=== PATIENT | female | born 1985 | race Caucasian/White ===

== ENCOUNTER 2021-04-06 18:18 | Inpatient (IN) | payer MEDICAID, SELFPAY ==
[~2021-04-06] VITALS: Ht 167.6 cm; Wt 117.5 kg
[2021-04-06 18:18] VITALS: BP_SYST 118
[~2021-04-06 18:18] MED LIST: CEFAZOLIN 1 GM IVPB PREMIX 50 ML IV ONE; MIDAZOLAM HCL 5 MG/5 ML VIAL IVP ONE; MORPHINE 2 MG/ML INJ. SYRINGE IVP ONE; PROPOFOL 200MG/ 20ML VIAL (DIPRIVAN) IV ONE; ROCURONIUM BROMIDE 10 MG/ML (ZEMURON) IV ONE; SEVOFLURANE 15 MIN GAS INH ONE
[2021-04-06] MEDS ORDERED: DEXAMETHASONE SOD PHOSPHATE 4 MG/ML VIAL IVP ONE (20:15)
[2021-04-06 21:08] LABS: BASOPHILS # (AUTO) 0.1 K/uL (0.0-0.2); BASOPHILS % (AUTO) 0.6 % (0.0-2.0); HEMOGLOBIN 12.4 g/dL (12.0-16.0); LYMPHOCYTES # (AUTO) 0.8 K/uL (1.0-5.5); LYMPHOCYTES % (AUTO) 8.6 % (20.5-51.5); MEAN CORPUSCULAR HEMOGLOBIN 31 pg (27-31); MEAN CORPUSCULAR HGB CONC 35 % (32-36); MEAN CORPUSCULAR VOLUME 89 fL (79.0-98.0); MONOCYTES # (AUTO) 0.6 K/uL (0.0-1.0); MONOCYTES % (AUTO) 6.6 % (1.7-9.3); NEUTROPHILS # (AUTO) 7.6 K/uL (1.8-7.7); NEUTROPHILS % (AUTO) 84.2 % (40.0-70.0); PLATELET COUNT (AUTO) 391 K/uL (130-430); RED BLOOD CELL COUNT(AUTO) 4.06 MIL/uL (4.2-6.2); RED CELL DISTRIBUTION WIDTH 14.1 % (9.0-15.0)
[2021-04-06 21:29] LABS: CALCIUM 8.6 mg/dL (8.4-11.0); CREATININE 1.09 mg/dL (0.55-1.30); POTASSIUM 3.7 mmol/L (3.5-5.1)
[2021-04-06 21:39] LABS: ALBUMIN 2.8 g/dL (3.4-4.8); TOTAL BILIRUBIN 0.4 mg/dL (0.0-1.0)
[2021-04-06 22:09] LABS: C-REACTIVE PROTEIN QUANT 24.3 mg/dL (0-0.5)
[2021-04-06 23:00] VITALS: BP_SYST 125
[2021-04-06] MEDS ORDERED: LORazepam 2 MG/ML VIAL IVP PRN (23:30)
[2021-04-06] MEDS ORDERED: HYDROcodone/ACETAMIN 10-325 MG TAB PO PRN (23:30)
[2021-04-06] MEDS ORDERED: HYDROcodone/ACETAMIN 5-325 MG TAB (NORCO/ VICODIN) PO PRN (23:30)
[2021-04-06] MEDS ORDERED: NALOXONE HCL 0.4 MG/ML AMP (NARCAN) IVP PRN ×2 (23:30)
[2021-04-07] VITALS (25 sets, daily range): BP systolic 116–163
[2021-04-07] MEDS ORDERED: LEVOFLOXACIN IN DEXTROSE 5 % 100 ML IV ONE (01:15)
[2021-04-07] MEDS ORDERED: ALBUTEROL SULFATE 0.083% 2.5 MG/3 ML VIAL.NEB INH SCH ×2 (03:00→07:00)
[2021-04-07] MEDS ORDERED: IPRATROPIUM BROM 0.5 MG/2.5 ML VIAL.NEB (ATROVENT) INH SCH (03:00)
[2021-04-07] MEDS: NORMAL SALINE 5 ML DISP.SYRIN IVF SCH ×3 (06:19→22:24)
[2021-04-07] MEDS: IPRATROPIUM BROM 0.5 MG/2.5 ML VIAL.NEB (ATROVENT) INH SCH ×3 (07:00→15:00)
[2021-04-07] MEDS ORDERED: ALBUTEROL MDI INHALATION 8 GM INH INH SCH (07:00)
[2021-04-07 07:21] LABS: BASOPHILS % (AUTO) 0.2 % (0.0-2.0); HEMATOCRIT 34.9 % (36-48); HEMOGLOBIN 12.1 g/dL (12.0-16.0); LYMPHOCYTES % (AUTO) 10.9 % (20.5-51.5); MEAN CORPUSCULAR HEMOGLOBIN 31 pg (27-31); MEAN CORPUSCULAR HGB CONC 35 % (32-36); MEAN CORPUSCULAR VOLUME 89 fL (79.0-98.0); MONOCYTES # (AUTO) 0.6 K/uL (0.0-1.0); MONOCYTES % (AUTO) 6.5 % (1.7-9.3); NEUTROPHILS # (AUTO) 7.8 K/uL (1.8-7.7); NEUTROPHILS % (AUTO) 82.4 % (40.0-70.0); PLATELET COUNT (AUTO) 374 K/uL (130-430); RED BLOOD CELL COUNT(AUTO) 3.91 MIL/uL (4.2-6.2); WHITE BLOOD COUNT (AUTO) 9.5 K/uL (4.8-10.8)
[2021-04-07 07:22] LABS: ALBUMIN 2.5 g/dL (3.4-4.8); CALCIUM 8.2 mg/dL (8.4-11.0); CREATININE 0.83 mg/dL (0.55-1.30); POTASSIUM 4.2 mmol/L (3.5-5.1); TOTAL BILIRUBIN 0.4 mg/dL (0.0-1.0)
[2021-04-07] MEDS ORDERED: ENOXAPARIN SODIUM 40 MG/0.4 ML SYRINGE SUBCUT ONE (07:30)
[2021-04-07] MEDS ORDERED: ALBUTEROL MDI INHALATION 8 GM INH INH PRN (07:30)
[2021-04-07] MEDS: AZITHROMYCIN 500 MG in NS 250 ML IV SCH (08:06)
[2021-04-07] MEDS: DEXAMETHASONE SOD PHOSPHATE 10 MG/ML VIAL IVP SCH (08:07)
[2021-04-07 08:35] LABS: ALBUMIN 2.5 g/dL (3.4-4.8); BILIRUBIN,DIRECT 0.1 mg/dL (0.0-0.3); TOTAL BILIRUBIN 0.4 mg/dL (0.0-1.0)
[2021-04-07] MEDS: ALBUTEROL MDI INHALATION 8 GM INH INH SCH ×5 (08:49→23:30)
[2021-04-07] MEDS ORDERED: CHOLECALCIFEROL (VITAMIN D3) 5,000 UNIT TABLET PO ONE (10:15)
[2021-04-07] MEDS ORDERED: ASCORBIC ACID 500 MG TABLET PO ONE (10:15)
[2021-04-07] MEDS: cefTRIAXone 1 GM IVPB PREMIX 50 ML IV SCH (10:16)
[2021-04-07 10:31] LABS: AMYLASE 35 U/L (0-100); LIPASE 64 U/L (73-393)
[2021-04-07] MEDS: LEVOFLOXACIN IN DEXTROSE 5 % 100 ML IV SCH ×2 (22:20)
[2021-04-08] VITALS (25 sets, daily range): BP systolic 110–165
[2021-04-08] MEDS: ALBUTEROL MDI INHALATION 8 GM INH INH SCH ×6 (03:25→23:59)
[2021-04-08] MEDS: NORMAL SALINE 5 ML DISP.SYRIN IVF SCH ×3 (06:00→23:28)
[2021-04-08 06:54] LABS: BASOPHILS % (AUTO) 0.1 % (0.0-2.0); HEMATOCRIT 35.6 % (36-48); LYMPHOCYTES # (AUTO) 0.7 K/uL (1.0-5.5); LYMPHOCYTES % (AUTO) 6.1 % (20.5-51.5); MEAN CORPUSCULAR HEMOGLOBIN 30 pg (27-31); MEAN CORPUSCULAR HGB CONC 34 % (32-36); MEAN CORPUSCULAR VOLUME 90 fL (79.0-98.0); MONOCYTES # (AUTO) 0.7 K/uL (0.0-1.0); MONOCYTES % (AUTO) 5.6 % (1.7-9.3); NEUTROPHILS # (AUTO) 10.7 K/uL (1.8-7.7); NEUTROPHILS % (AUTO) 88.2 % (40.0-70.0); PLATELET COUNT (AUTO) 384 K/uL (130-430); RED BLOOD CELL COUNT(AUTO) 3.96 MIL/uL (4.2-6.2)
[2021-04-08] MEDS: IPRATROPIUM BROM 0.5 MG/2.5 ML VIAL.NEB (ATROVENT) INH SCH (07:00)
[2021-04-08 07:01] LABS: PROTHROMBIN TIME 10.3 SECS (9.5-12.5)
[2021-04-08 07:14] LABS: ALBUMIN 2.6 g/dL (3.4-4.8); BILIRUBIN,DIRECT 0.2 mg/dL (0.0-0.3); CREATININE 0.79 mg/dL (0.55-1.30); POTASSIUM 3.9 mmol/L (3.5-5.1); TOTAL BILIRUBIN 0.6 mg/dL (0.0-1.0)
[2021-04-08 08:17] LABS: WHITE BLOOD COUNT (AUTO) 12.1 K/uL (4.8-10.8)
[2021-04-08 08:31] LABS: C-REACTIVE PROTEIN QUANT 15.4 mg/dL (0-0.5)
[2021-04-08] MEDS: D5/0.45 NS 1,000 ML IV SCH (08:33)
[2021-04-08] MEDS: AZITHROMYCIN 500 MG in NS 250 ML IV SCH (08:33)
[2021-04-08] MEDS: CHOLECALCIFEROL (VITAMIN D3) 5,000 UNIT TABLET PO SCH (08:35)
[2021-04-08] MEDS: ASCORBIC ACID 500 MG TABLET PO SCH (08:35)
[2021-04-08] MEDS: DEXAMETHASONE SOD PHOSPHATE 10 MG/ML VIAL IVP SCH (08:39)
[2021-04-08] MEDS: cefTRIAXone 1 GM IVPB PREMIX 50 ML IV SCH (08:41)
[2021-04-08] MEDS ORDERED: ENOXAPARIN SODIUM 40 MG/0.4 ML SYRINGE SUBCUT SCH ×2 (09:00)
[2021-04-08 10:11] LABS: ERYTHROCYTE SEDIMENTATION RATE 62 MM/HR (0-20)
[2021-04-08 11:29] LABS: INR 1.1 (0.8-1.2); PROTHROMBIN TIME 11.2 SECS (9.5-12.5)
[2021-04-08] MEDS ORDERED: TOCILIZUMAB 400 MG in NS 100 ML IV ONE (13:00)
[2021-04-08] MEDS: LEVOFLOXACIN IN DEXTROSE 5 % 100 ML IV SCH (21:00)
[2021-04-08] MEDS ORDERED: MORPHINE SULFATE IN 0.9 % NACL 100 ML IV ONE (21:35)
[2021-04-08] MEDS ORDERED: PROPOFOL DRIP 100 ML IV ONE (21:35)
[2021-04-09] VITALS (35 sets, daily range): BP systolic 100–123
[2021-04-09] MEDS ORDERED: PROPOFOL DRIP 100 ML IV ONE ×2 (00:15→02:47)
[2021-04-09] MEDS ORDERED: NOREPINEPHRINE BITARTRATE 4 MG in D5W 246 ML IV PRN (00:45)
[2021-04-09] MEDS: ALBUTEROL MDI INHALATION 8 GM INH INH SCH ×6 (04:00→23:12)
[2021-04-09] MEDS: D5/0.45 NS 1,000 ML IV SCH (07:00)
[2021-04-09] MEDS ORDERED: NALOXONE HCL 0.4 MG/ML AMP (NARCAN) IVP PRN (07:00)
[2021-04-09] MEDS: PROPOFOL DRIP 100 ML IV PRN ×5 (07:10→20:16)
[2021-04-09] MEDS: MORPHINE SULFATE IN 0.9 % NACL 100 ML IV PRN ×2 (07:13→14:56)
[2021-04-09] MEDS ORDERED: LevALBUTEROL HCL 1.25 MG/0.5 ML *CONC.* VIAL.NEB (XOPENEX CONC.) INH ONE (07:18)
[2021-04-09] MEDS: NORMAL SALINE 5 ML DISP.SYRIN IVF SCH ×3 (07:19→21:04)
[2021-04-09 07:34] LABS: ALBUMIN 2.4 g/dL (3.4-4.8); BILIRUBIN,DIRECT 0.1 mg/dL (0.0-0.3); CALCIUM 8.1 mg/dL (8.4-11.0); CREATININE 0.78 mg/dL (0.55-1.30); POTASSIUM 4.9 mmol/L (3.5-5.1); TOTAL BILIRUBIN 0.3 mg/dL (0.0-1.0)
[2021-04-09] MEDS: DEXAMETHASONE SOD PHOSPHATE 10 MG/ML VIAL IVP SCH (08:02)
[2021-04-09] MEDS: AZITHROMYCIN 500 MG in NS 250 ML IV SCH (08:03)
[2021-04-09 08:06] LABS: HEPATITIS A AB, IgM Negative (Negative); HEPATITIS B CORE AB, IgM Negative (Negative); HEPATITIS B SURFACE AG Negative (Negative)
[2021-04-09] MEDS ORDERED: ENOXAPARIN SODIUM 40 MG/0.4 ML SYRINGE SUBCUT SCH (09:00)
[2021-04-09 09:12] LABS: BASOPHILS % (AUTO) 0.1 % (0.0-2.0); EOSINOPHILS % (AUTO) 0.1 % (0.0-4.0); HEMATOCRIT 32.5 % (36-48); HEMOGLOBIN 10.9 g/dL (12.0-16.0); LYMPHOCYTES % (AUTO) 7.1 % (20.5-51.5); MEAN CORPUSCULAR HEMOGLOBIN 30 pg (27-31); MEAN CORPUSCULAR HGB CONC 34 % (32-36); MEAN CORPUSCULAR VOLUME 90 fL (79.0-98.0); MONOCYTES # (AUTO) 0.7 K/uL (0.0-1.0); MONOCYTES % (AUTO) 5.1 % (1.7-9.3); NEUTROPHILS # (AUTO) 11.8 K/uL (1.8-7.7); NEUTROPHILS % (AUTO) 87.6 % (40.0-70.0); PLATELET COUNT (AUTO) 217 K/uL (130-430); RED CELL DISTRIBUTION WIDTH 14.2 % (9.0-15.0); WHITE BLOOD COUNT (AUTO) 13.5 K/uL (4.8-10.8)
[2021-04-09] MEDS: cefTRIAXone 1 GM IVPB PREMIX 50 ML IV SCH (09:14)
[2021-04-09] MEDS: CHOLECALCIFEROL (VITAMIN D3) 5,000 UNIT TABLET PO SCH (09:14)
[2021-04-09] MEDS: ASCORBIC ACID 500 MG TABLET PO SCH (09:14)
[2021-04-09 10:04] LABS: ERYTHROCYTE SEDIMENTATION RATE 28 MM/HR (0-20)
[2021-04-09] MEDS ORDERED: ROCURONIUM BROMIDE 10 MG/ML (ZEMURON) IV ONE (10:29)
[2021-04-09] MEDS ORDERED: ETOMIDATE 20 MG/ 10 ML VIAL (AMIDATE) IVP ONE (10:29)
[2021-04-09] MEDS ORDERED: SUCCINYLCHOLINE CHLORIDE 20 MG/ML(QUELICIN) IVP ONE (10:29)
[2021-04-09 10:50] LABS: C-REACTIVE PROTEIN QUANT 18.5 mg/dL (0-0.5)
[2021-04-09] MEDS: LEVOFLOXACIN IN DEXTROSE 5 % 100 ML IV SCH (20:11)
[2021-04-09] MEDS: ENOXAPARIN SODIUM 100 MG/ML SYRINGE SUBCUT SCH (20:14)
[2021-04-10] VITALS (30 sets, daily range): BP systolic 99–157
[2021-04-10] MEDS: PROPOFOL DRIP 100 ML IV PRN ×4 (00:18→17:10)
[2021-04-10] MEDS: ALBUTEROL MDI INHALATION 8 GM INH INH SCH ×6 (03:32→23:11)
[2021-04-10] MEDS: NORMAL SALINE 5 ML DISP.SYRIN IVF SCH ×3 (06:10→21:30)
[2021-04-10] MEDS: D5/0.45 NS 1,000 ML IV SCH ×2 (06:40)
[2021-04-10] MEDS: ENOXAPARIN SODIUM 100 MG/ML SYRINGE SUBCUT SCH ×2 (09:20→21:30)
[2021-04-10] MEDS: DEXAMETHASONE SOD PHOSPHATE 10 MG/ML VIAL IVP SCH (09:21)
[2021-04-10] MEDS: cefTRIAXone 1 GM IVPB PREMIX 50 ML IV SCH (09:21)
[2021-04-10] MEDS: AZITHROMYCIN 500 MG in NS 250 ML IV SCH (09:21)
[2021-04-10] MEDS: ASCORBIC ACID 500 MG TABLET PO SCH (09:25)
[2021-04-10] MEDS: CHOLECALCIFEROL (VITAMIN D3) 5,000 UNIT TABLET PO SCH (09:25)
[2021-04-10 09:37] LABS: BASOPHILS % (AUTO) 0.2 % (0.0-2.0); MONOCYTES # (AUTO) 0.4 K/uL (0.0-1.0); MONOCYTES % (AUTO) 4.2 % (1.7-9.3)
[2021-04-10 09:48] LABS: EOSINOPHILS # (AUTO) 0.3 K/uL (0.0-0.4); EOSINOPHILS % (AUTO) 2.6 % (0.0-4.0); HEMATOCRIT 30.6 % (36-48); HEMOGLOBIN 10.6 g/dL (12.0-16.0); LYMPHOCYTES # (AUTO) 1.2 K/uL (1.0-5.5); LYMPHOCYTES % (AUTO) 11.9 % (20.5-51.5); MEAN CORPUSCULAR HEMOGLOBIN 31 pg (27-31); MEAN CORPUSCULAR HGB CONC 35 % (32-36); MEAN CORPUSCULAR VOLUME 89 fL (79.0-98.0); NEUTROPHILS % (AUTO) 81.1 % (40.0-70.0); PLATELET COUNT (AUTO) 177 K/uL (130-430); RED BLOOD CELL COUNT(AUTO) 3.42 MIL/uL (4.2-6.2); WHITE BLOOD COUNT (AUTO) 9.8 K/uL (4.8-10.8)
[2021-04-10 10:40] LABS: ALBUMIN 2.2 g/dL (3.4-4.8); C-REACTIVE PROTEIN QUANT 9.8 mg/dL (0-0.5); CALCIUM 7.7 mg/dL (8.4-11.0); CREATININE 0.76 mg/dL (0.55-1.30); POTASSIUM 4.1 mmol/L (3.5-5.1); TOTAL BILIRUBIN 0.3 mg/dL (0.0-1.0)
[2021-04-10 11:06] LABS: CERULOPLASMIN 29.2 mg/dL (19.0-39.0)
[2021-04-10 11:24] LABS: ERYTHROCYTE SEDIMENTATION RATE 6 MM/HR (0-20)
[2021-04-10 13:06] LABS: ANTI NUCLEAR AB WITH REFLEX Negative (Negative); ANTI-SMOOTH MUSCLE AB 7 Units (0-19)
[2021-04-10] MEDS ORDERED: TOCILIZUMAB 400 MG in NS 100 ML IV ONE (14:00)
[2021-04-10] MEDS: LEVOFLOXACIN IN DEXTROSE 5 % 100 ML IV SCH (21:30)
[2021-04-10] MEDS ORDERED: ATROPINE SULFATE 1 MG/10 ML SYRINGE IVP ONE (23:13)
[2021-04-11] VITALS (29 sets, daily range): BP systolic 116–138
[2021-04-11] MEDS: ALBUTEROL MDI INHALATION 8 GM INH INH SCH ×3 (03:43→16:59)
[2021-04-11 06:51] LABS: BASOPHILS # (AUTO) 0.2 K/uL (0.0-0.2); BASOPHILS % (AUTO) 1.4 % (0.0-2.0); EOSINOPHILS # (AUTO) 0.4 K/uL (0.0-0.4); EOSINOPHILS % (AUTO) 3.6 % (0.0-4.0); HEMATOCRIT 30.2 % (36-48); HEMOGLOBIN 10.7 g/dL (12.0-16.0); LYMPHOCYTES # (AUTO) 1.2 K/uL (1.0-5.5); LYMPHOCYTES % (AUTO) 10.6 % (20.5-51.5); MEAN CORPUSCULAR HEMOGLOBIN 32 pg (27-31); MEAN CORPUSCULAR HGB CONC 36 % (32-36); MEAN CORPUSCULAR VOLUME 90 fL (79.0-98.0); MONOCYTES # (AUTO) 0.4 K/uL (0.0-1.0); MONOCYTES % (AUTO) 3.8 % (1.7-9.3); NEUTROPHILS # (AUTO) 9.2 K/uL (1.8-7.7); PLATELET COUNT (AUTO) 340 K/uL (130-430); RED BLOOD CELL COUNT(AUTO) 3.36 MIL/uL (4.2-6.2); RED CELL DISTRIBUTION WIDTH 14.7 % (9.0-15.0); WHITE BLOOD COUNT (AUTO) 11.4 K/uL (4.8-10.8)
[2021-04-11 07:22] LABS: ALBUMIN 2.3 g/dL (3.4-4.8); CALCIUM 7.9 mg/dL (8.4-11.0); CREATININE 0.68 mg/dL (0.55-1.30); POTASSIUM 3.8 mmol/L (3.5-5.1); TOTAL BILIRUBIN 0.3 mg/dL (0.0-1.0)
[2021-04-11] MEDS: ATROPINE SULFATE 0.4 MG/ML VIAL IVP PRN ×2 (07:40→10:30)
[2021-04-11] MEDS: AZITHROMYCIN 500 MG in NS 250 ML IV SCH (08:34)
[2021-04-11] MEDS: NORMAL SALINE 5 ML DISP.SYRIN IVF SCH ×3 (08:34→21:27)
[2021-04-11] MEDS: DEXAMETHASONE SOD PHOSPHATE 10 MG/ML VIAL IVP SCH (08:34)
[2021-04-11] MEDS: cefTRIAXone 1 GM IVPB PREMIX 50 ML IV SCH (08:35)
[2021-04-11] MEDS: CHOLECALCIFEROL (VITAMIN D3) 5,000 UNIT TABLET PO SCH (08:35)
[2021-04-11] MEDS: ASCORBIC ACID 500 MG TABLET PO SCH (08:35)
[2021-04-11] MEDS: PANTOPRAZOLE SODIUM 40 MG/VIAL (PROTONIX) IVP SCH (08:35)
[2021-04-11] MEDS: ENOXAPARIN SODIUM 100 MG/ML SYRINGE SUBCUT SCH ×2 (08:36→21:24)
[2021-04-11] MEDS: MIDAZOLAM IN NACL,ISO-OSMOT/PF 100 ML IV PRN (08:39)
[2021-04-11 08:48] LABS: C-REACTIVE PROTEIN QUANT 4.3 mg/dL (0-0.5)
[2021-04-11 09:33] LABS: FERRITIN 1093 ng/mL (15-150)
[2021-04-11 09:45] LABS: ERYTHROCYTE SEDIMENTATION RATE 3 MM/HR (0-20)
[2021-04-11 10:03] LABS: NEUTROPHILS % (AUTO) 80.6 % (40.0-70.0)
[2021-04-11] MEDS: PROPOFOL DRIP 100 ML IV PRN ×3 (13:58→21:26)
[2021-04-11] MEDS: D5/0.45 NS 1,000 ML IV SCH (17:41)
[2021-04-12] VITALS (36 sets, daily range): BP systolic 102–120
[2021-04-12] MEDS: PROPOFOL DRIP 100 ML IV PRN ×6 (00:31→20:01)
[2021-04-12] MEDS: D5/0.45 NS 1,000 ML IV SCH (03:20)
[2021-04-12] MEDS: MIDAZOLAM IN NACL,ISO-OSMOT/PF 100 ML IV PRN (03:24)
[2021-04-12] MEDS: ALBUTEROL MDI INHALATION 8 GM INH INH SCH ×7 (04:03→23:49)
[2021-04-12] MEDS: NORMAL SALINE 5 ML DISP.SYRIN IVF SCH ×3 (05:54→21:42)
[2021-04-12 06:40] LABS: BASOPHILS # (AUTO) 0.1 K/uL (0.0-0.2); EOSINOPHILS # (AUTO) 0.4 K/uL (0.0-0.4); HEMATOCRIT 29.9 % (36-48); HEMOGLOBIN 10.7 g/dL (12.0-16.0); LYMPHOCYTES # (AUTO) 1.4 K/uL (1.0-5.5); LYMPHOCYTES % (AUTO) 12.1 % (20.5-51.5); MEAN CORPUSCULAR HEMOGLOBIN 32 pg (27-31); MEAN CORPUSCULAR HGB CONC 36 % (32-36); MEAN CORPUSCULAR VOLUME 91 fL (79.0-98.0); MONOCYTES # (AUTO) 0.2 K/uL (0.0-1.0); MONOCYTES % (AUTO) 2.1 % (1.7-9.3); NEUTROPHILS # (AUTO) 9.6 K/uL (1.8-7.7); NEUTROPHILS % (AUTO) 81.8 % (40.0-70.0); PLATELET COUNT (AUTO) 347 K/uL (130-430); RED CELL DISTRIBUTION WIDTH 14.6 % (9.0-15.0); WHITE BLOOD COUNT (AUTO) 11.8 K/uL (4.8-10.8)
[2021-04-12 07:41] LABS: ALBUMIN 2.2 g/dL (3.4-4.8); CALCIUM 7.7 mg/dL (8.4-11.0); CREATININE 0.53 mg/dL (0.55-1.30); POTASSIUM 4.3 mmol/L (3.5-5.1); TOTAL BILIRUBIN 0.4 mg/dL (0.0-1.0)
[2021-04-12 08:27] LABS: ERYTHROCYTE SEDIMENTATION RATE 3 MM/HR (0-20)
[2021-04-12] MEDS: CHOLECALCIFEROL (VITAMIN D3) 5,000 UNIT TABLET PO SCH (08:58)
[2021-04-12] MEDS: ASCORBIC ACID 500 MG TABLET PO SCH (08:58)
[2021-04-12] MEDS: PANTOPRAZOLE SODIUM 40 MG/VIAL (PROTONIX) IVP SCH (08:58)
[2021-04-12] MEDS: DEXAMETHASONE SOD PHOSPHATE 10 MG/ML VIAL IVP SCH (08:58)
[2021-04-12] MEDS: ENOXAPARIN SODIUM 100 MG/ML SYRINGE SUBCUT SCH ×2 (09:00→21:42)
[2021-04-12] MEDS: cefTRIAXone 1 GM IVPB PREMIX 50 ML IV SCH (09:03)
[2021-04-12 09:27] LABS: C-REACTIVE PROTEIN QUANT 2.1 mg/dL (0-0.5)
[2021-04-13] VITALS (36 sets, daily range): BP systolic 97–128
[2021-04-13] MEDS: PROPOFOL DRIP 100 ML IV PRN ×5 (00:30→22:00)
[2021-04-13] MEDS: NORMAL SALINE 5 ML DISP.SYRIN IVF SCH ×3 (06:16→21:05)
[2021-04-13] MEDS: D5/0.45 NS 1,000 ML IV SCH (06:17)
[2021-04-13] MEDS: MIDAZOLAM IN NACL,ISO-OSMOT/PF 100 ML IV PRN (06:23)
[2021-04-13 06:25] LABS: BASOPHILS # (AUTO) 0.2 K/uL (0.0-0.2); BASOPHILS % (AUTO) 1.5 % (0.0-2.0); EOSINOPHILS # (AUTO) 1.4 K/uL (0.0-0.4); HEMATOCRIT 34.1 % (36-48); HEMOGLOBIN 11.9 g/dL (12.0-16.0); LYMPHOCYTES # (AUTO) 2.1 K/uL (1.0-5.5); LYMPHOCYTES % (AUTO) 13.4 % (20.5-51.5); MEAN CORPUSCULAR HEMOGLOBIN 32 pg (27-31); MEAN CORPUSCULAR HGB CONC 35 % (32-36); MEAN CORPUSCULAR VOLUME 91 fL (79.0-98.0); MONOCYTES # (AUTO) 0.5 K/uL (0.0-1.0); MONOCYTES % (AUTO) 3.2 % (1.7-9.3); NEUTROPHILS # (AUTO) 11.3 K/uL (1.8-7.7); NEUTROPHILS % (AUTO) 72.9 % (40.0-70.0); PLATELET COUNT (AUTO) 343 K/uL (130-430); RED BLOOD CELL COUNT(AUTO) 3.76 MIL/uL (4.2-6.2); RED CELL DISTRIBUTION WIDTH 14.8 % (9.0-15.0); WHITE BLOOD COUNT (AUTO) 15.5 K/uL (4.8-10.8)
[2021-04-13 07:16] LABS: CALCIUM 7.7 mg/dL (8.4-11.0); CREATININE 0.59 mg/dL (0.55-1.30); POTASSIUM 3.7 mmol/L (3.5-5.1)
[2021-04-13] MEDS: ALBUTEROL MDI INHALATION 8 GM INH INH SCH ×5 (07:26→23:14)
[2021-04-13] MEDS: PANTOPRAZOLE SODIUM 40 MG/VIAL (PROTONIX) IVP SCH (08:32)
[2021-04-13] MEDS: CHOLECALCIFEROL (VITAMIN D3) 5,000 UNIT TABLET PO SCH (08:32)
[2021-04-13] MEDS: ASCORBIC ACID 500 MG TABLET PO SCH (08:32)
[2021-04-13] MEDS: DEXAMETHASONE SOD PHOSPHATE 10 MG/ML VIAL IVP SCH (08:33)
[2021-04-13] MEDS: ENOXAPARIN SODIUM 100 MG/ML SYRINGE SUBCUT SCH ×2 (08:33→20:19)
[2021-04-13] MEDS: cefTRIAXone 1 GM IVPB PREMIX 50 ML IV SCH (08:35)
[2021-04-13 08:50] LABS: C-REACTIVE PROTEIN QUANT 0.9 mg/dL (0-0.5)
[2021-04-13 09:42] LABS: ERYTHROCYTE SEDIMENTATION RATE 2 MM/HR (0-20)
[2021-04-13] MEDS: MORPHINE SULFATE IN 0.9 % NACL 100 ML IV PRN (11:00)
[2021-04-13] MEDS: MICAFUNGIN SODIUM 100 MG in NS 100 ML IV SCH (17:53)
[2021-04-13] MEDS: AZITHROMYCIN 500 MG in NS 250 ML IV SCH (20:03)
[2021-04-14] VITALS (34 sets, daily range): BP systolic 99–121
[2021-04-14] MEDS: ATROPINE SULFATE 0.4 MG/ML VIAL IVP PRN ×3 (01:20→18:43)
[2021-04-14] MEDS: ALBUTEROL MDI INHALATION 8 GM INH INH SCH ×5 (03:10→19:29)
[2021-04-14] MEDS: D5/0.45 NS 1,000 ML IV SCH (04:57)
[2021-04-14] MEDS: NORMAL SALINE 5 ML DISP.SYRIN IVF SCH ×3 (05:36→21:44)
[2021-04-14 07:18] LABS: ALBUMIN 2.2 g/dL (3.4-4.8); CALCIUM 7.6 mg/dL (8.4-11.0); CREATININE 0.6 mg/dL (0.55-1.30); POTASSIUM 3.8 mmol/L (3.5-5.1); TOTAL BILIRUBIN 0.4 mg/dL (0.0-1.0)
[2021-04-14 07:26] LABS: HEMATOCRIT 30.3 % (36-48); HEMOGLOBIN 10.5 g/dL (12.0-16.0); MEAN CORPUSCULAR HEMOGLOBIN 32 pg (27-31); MEAN CORPUSCULAR HGB CONC 35 % (32-36); MEAN CORPUSCULAR VOLUME 91 fL (79.0-98.0); PLATELET COUNT (AUTO) 363 K/uL (130-430); RED BLOOD CELL COUNT(AUTO) 3.33 MIL/uL (4.2-6.2); RED CELL DISTRIBUTION WIDTH 14.7 % (9.0-15.0); WHITE BLOOD COUNT (AUTO) 12.9 K/uL (4.8-10.8)
[2021-04-14] MEDS: PANTOPRAZOLE SODIUM 40 MG/VIAL (PROTONIX) IVP SCH (09:05)
[2021-04-14] MEDS: cefTRIAXone 1 GM IVPB PREMIX 50 ML IV SCH (09:05)
[2021-04-14] MEDS: CHOLECALCIFEROL (VITAMIN D3) 5,000 UNIT TABLET PO SCH (09:06)
[2021-04-14] MEDS: ASCORBIC ACID 500 MG TABLET PO SCH (09:06)
[2021-04-14] MEDS: DEXAMETHASONE SOD PHOSPHATE 10 MG/ML VIAL IVP SCH (09:06)
[2021-04-14] MEDS: ENOXAPARIN SODIUM 100 MG/ML SYRINGE SUBCUT SCH ×2 (09:12→21:43)
[2021-04-14 09:48] LABS: C-REACTIVE PROTEIN QUANT 0.3 mg/dL (0-0.5)
[2021-04-14 10:30] LABS: ERYTHROCYTE SEDIMENTATION RATE 5 MM/HR (0-20)
[2021-04-14] MEDS: PROPOFOL DRIP 100 ML IV PRN ×2 (11:04→18:43)
[2021-04-14 12:22] LABS: BAND % (MANUAL) 9 % (0-6); BASOPHILS % (MANUAL) 0 % (0-2); EOSINOPHILS % (MANUAL) 1 % (0-7); LYMPHOCYTES % (MANUAL) 7 % (20-46); MONOCYTES % (MANUAL) 4 % (0-11)
[2021-04-14 12:24] LABS: METAMYELOCYTES % 4 % (0-0)
[2021-04-14] MEDS: MIDAZOLAM IN NACL,ISO-OSMOT/PF 100 ML IV PRN (14:02)
[2021-04-14] MEDS: MICAFUNGIN SODIUM 100 MG in NS 100 ML IV SCH (17:28)
[2021-04-14] MEDS: MORPHINE SULFATE IN 0.9 % NACL 100 ML IV PRN (21:34)
[2021-04-14] MEDS: AZITHROMYCIN 500 MG in NS 250 ML IV SCH (21:40)
[2021-04-15] VITALS (35 sets, daily range): BP systolic 103–132
[2021-04-15] MEDS: D5/0.45 NS 1,000 ML IV SCH
[2021-04-15] MEDS: ALBUTEROL MDI INHALATION 8 GM INH INH SCH ×7 (03:28→23:17)
[2021-04-15] MEDS: NORMAL SALINE 5 ML DISP.SYRIN IVF SCH ×3 (06:25→22:53)
[2021-04-15 06:46] LABS: BASOPHILS # (AUTO) 0.1 K/uL (0.0-0.2); BASOPHILS % (AUTO) 0.5 % (0.0-2.0); EOSINOPHILS # (AUTO) 0.3 K/uL (0.0-0.4); EOSINOPHILS % (AUTO) 2.1 % (0.0-4.0); HEMATOCRIT 32.2 % (36-48); HEMOGLOBIN 10.8 g/dL (12.0-16.0); LYMPHOCYTES # (AUTO) 1.9 K/uL (1.0-5.5); LYMPHOCYTES % (AUTO) 13.9 % (20.5-51.5); MEAN CORPUSCULAR HEMOGLOBIN 30 pg (27-31); MEAN CORPUSCULAR HGB CONC 34 % (32-36); MEAN CORPUSCULAR VOLUME 90 fL (79.0-98.0); MONOCYTES # (AUTO) 0.7 K/uL (0.0-1.0); NEUTROPHILS # (AUTO) 10.5 K/uL (1.8-7.7); PLATELET COUNT (AUTO) 301 K/uL (130-430); RED BLOOD CELL COUNT(AUTO) 3.56 MIL/uL (4.2-6.2); RED CELL DISTRIBUTION WIDTH 14.9 % (9.0-15.0); WHITE BLOOD COUNT (AUTO) 13.4 K/uL (4.8-10.8)
[2021-04-15 06:58] LABS: ANION GAP 6 (5-15); CALCIUM 7.8 mg/dL (8.4-11.0); CHLORIDE 106 mmol/L (98-107); CREATININE 0.59 mg/dL (0.55-1.30); GLUCOSE 116 mg/dL (70-99); POTASSIUM 3.8 mmol/L (3.5-5.1); SODIUM SERUM 140 mmol/L (136-145); UREA NITROGEN, BLOOD 20 mg/dL (8-21)
[2021-04-15 07:27] LABS: GFR AFRICAN AMERICAN 148 mL/min (>90)
[2021-04-15 07:38] LABS: NEUTROPHILS % (AUTO) 78.5 % (40.0-70.0)
[2021-04-15 07:43] LABS: C-REACTIVE PROTEIN QUANT < 0.2 mg/dL (0-0.5)
[2021-04-15] MEDS: CHOLECALCIFEROL (VITAMIN D3) 5,000 UNIT TABLET PO SCH (09:10)
[2021-04-15] MEDS: ASCORBIC ACID 500 MG TABLET PO SCH (09:10)
[2021-04-15] MEDS: PANTOPRAZOLE SODIUM 40 MG/VIAL (PROTONIX) IVP SCH (09:11)
[2021-04-15] MEDS: DEXAMETHASONE SOD PHOSPHATE 10 MG/ML VIAL IVP SCH (09:13)
[2021-04-15] MEDS: cefTRIAXone 1 GM IVPB PREMIX 50 ML IV SCH (09:15)
[2021-04-15] MEDS: THEOPHYLLINE ANHYDROUS 200 MG CAP.ER.24H PO SCH (09:15)
[2021-04-15] MEDS: ENOXAPARIN SODIUM 100 MG/ML SYRINGE SUBCUT SCH ×2 (09:20→22:23)
[2021-04-15 10:13] LABS: ERYTHROCYTE SEDIMENTATION RATE 4 MM/HR (0-20)
[2021-04-15] MEDS: PROPOFOL DRIP 100 ML IV PRN ×3 (10:43→14:17)
[2021-04-15] MEDS: ATROPINE SULFATE 0.4 MG/ML VIAL IVP PRN (16:21)
[2021-04-15] MEDS: MICAFUNGIN SODIUM 100 MG in NS 100 ML IV SCH (17:56)
[2021-04-15] MEDS: AZITHROMYCIN 500 MG in NS 250 ML IV SCH (22:17)
[2021-04-15] MEDS: MORPHINE SULFATE IN 0.9 % NACL 100 ML IV PRN (22:19)
[2021-04-15] MEDS: MIDAZOLAM IN NACL,ISO-OSMOT/PF 100 ML IV PRN (22:22)
[2021-04-16] VITALS (33 sets, daily range): BP systolic 85–174
[2021-04-16] MEDS: ALBUTEROL MDI INHALATION 8 GM INH INH SCH ×6 (03:16→23:19)
[2021-04-16] MEDS: NORMAL SALINE 5 ML DISP.SYRIN IVF SCH ×3 (06:00→23:12)
[2021-04-16 06:34] LABS: BASOPHILS # (AUTO) 0.1 K/uL (0.0-0.2); BASOPHILS % (AUTO) 0.5 % (0.0-2.0); EOSINOPHILS # (AUTO) 0.3 K/uL (0.0-0.4); EOSINOPHILS % (AUTO) 2.2 % (0.0-4.0); HEMATOCRIT 33.8 % (36-48); HEMOGLOBIN 11.2 g/dL (12.0-16.0); LYMPHOCYTES # (AUTO) 2.2 K/uL (1.0-5.5); MEAN CORPUSCULAR HEMOGLOBIN 30 pg (27-31); MEAN CORPUSCULAR HGB CONC 33 % (32-36); MEAN CORPUSCULAR VOLUME 92 fL (79.0-98.0); MONOCYTES # (AUTO) 0.7 K/uL (0.0-1.0); MONOCYTES % (AUTO) 5.7 % (1.7-9.3); NEUTROPHILS # (AUTO) 8.8 K/uL (1.8-7.7); NEUTROPHILS % (AUTO) 73.6 % (40.0-70.0); PLATELET COUNT (AUTO) 346 K/uL (130-430); RED BLOOD CELL COUNT(AUTO) 3.68 MIL/uL (4.2-6.2); RED CELL DISTRIBUTION WIDTH 15.3 % (9.0-15.0)
[2021-04-16 06:43] LABS: CALCIUM 8.1 mg/dL (8.4-11.0); CREATININE 0.64 mg/dL (0.55-1.30); POTASSIUM 3.8 mmol/L (3.5-5.1)
[2021-04-16] MEDS: DEXAMETHASONE SOD PHOSPHATE 10 MG/ML VIAL IVP SCH (08:15)
[2021-04-16] MEDS: CHOLECALCIFEROL (VITAMIN D3) 5,000 UNIT TABLET PO SCH (08:16)
[2021-04-16] MEDS: ASCORBIC ACID 500 MG TABLET PO SCH (08:16)
[2021-04-16] MEDS: THEOPHYLLINE ANHYDROUS 200 MG CAP.ER.24H PO SCH (08:16)
[2021-04-16] MEDS: PANTOPRAZOLE SODIUM 40 MG/VIAL (PROTONIX) IVP SCH (08:17)
[2021-04-16] MEDS: cefTRIAXone 1 GM IVPB PREMIX 50 ML IV SCH (08:17)
[2021-04-16] MEDS: ENOXAPARIN SODIUM 100 MG/ML SYRINGE SUBCUT SCH ×2 (08:23→21:25)
[2021-04-16 10:24] LABS: FREE T4 (FREE THYROXINE) 1.6 ng/dl (0.8-1.5); THYROID STIMULATING HORMONE 7.25 uIu/mL (0.36-3.74)
[2021-04-16] MEDS: D5/0.45 NS 1,000 ML IV SCH ×2 (10:33→14:43)
[2021-04-16] MEDS: DOPamine PREMIX 250 ML IV PRN ×2 (11:16→20:19)
[2021-04-16] MEDS ORDERED: ERYTHROMYCIN LACTOBIONATE 500 MG in NS 50 ML IV SCH (12:00)
[2021-04-16] MEDS: PROPOFOL DRIP 100 ML IV PRN ×3 (13:44→23:16)
[2021-04-16] MEDS: MICAFUNGIN SODIUM 100 MG in NS 100 ML IV SCH (16:41)
[2021-04-16] MEDS: ERYTHROMYCIN BASE 500 MG TABLET NG SCH (17:13)
[2021-04-16] MEDS: AZITHROMYCIN 500 MG in NS 250 ML IV SCH (21:24)
[2021-04-17] VITALS (35 sets, daily range): BP systolic 96–159
[2021-04-17] MEDS: ERYTHROMYCIN BASE 500 MG TABLET NG SCH ×4 (00:07→17:55)
[2021-04-17] MEDS: ALBUTEROL MDI INHALATION 8 GM INH INH SCH ×5 (03:27→23:45)
[2021-04-17] MEDS: NORMAL SALINE 5 ML DISP.SYRIN IVF SCH ×3 (05:50→21:58)
[2021-04-17] MEDS: PROPOFOL DRIP 100 ML IV PRN ×4 (05:52→21:58)
[2021-04-17 06:18] LABS: BASOPHILS # (AUTO) 0.1 K/uL (0.0-0.2); BASOPHILS % (AUTO) 0.5 % (0.0-2.0); EOSINOPHILS # (AUTO) 0.3 K/uL (0.0-0.4); EOSINOPHILS % (AUTO) 1.9 % (0.0-4.0); HEMATOCRIT 37.3 % (36-48); HEMOGLOBIN 12.4 g/dL (12.0-16.0); LYMPHOCYTES # (AUTO) 2.2 K/uL (1.0-5.5); LYMPHOCYTES % (AUTO) 14.5 % (20.5-51.5); MEAN CORPUSCULAR HEMOGLOBIN 30 pg (27-31); MEAN CORPUSCULAR HGB CONC 33 % (32-36); MEAN CORPUSCULAR VOLUME 91 fL (79.0-98.0); MONOCYTES # (AUTO) 0.9 K/uL (0.0-1.0); NEUTROPHILS # (AUTO) 11.8 K/uL (1.8-7.7); PLATELET COUNT (AUTO) 386 K/uL (130-430); RED BLOOD CELL COUNT(AUTO) 4.09 MIL/uL (4.2-6.2); RED CELL DISTRIBUTION WIDTH 15.9 % (9.0-15.0); WHITE BLOOD COUNT (AUTO) 15.3 K/uL (4.8-10.8)
[2021-04-17 06:54] LABS: ALANINE AMINOTRANSFERASE 77 U/L (12-78); ALBUMIN 2.7 g/dL (3.4-4.8); ANION GAP 8 (5-15); ASPARTATE AMINOTRANSFERASE 48 U/L (10-37); CHLORIDE 108 mmol/L (98-107); CREATININE 0.63 mg/dL (0.55-1.30); GLUCOSE 181 mg/dL (70-99); PHOSPHORUS 3.8 mg/dL (2.7-4.5); POTASSIUM 3.8 mmol/L (3.5-5.1); SODIUM SERUM 143 mmol/L (136-145); TOTAL BILIRUBIN 0.4 mg/dL (0.0-1.0); UREA NITROGEN, BLOOD 12 mg/dL (8-21)
[2021-04-17 07:26] LABS: NEUTROPHILS % (AUTO) 77.1 % (40.0-70.0)
[2021-04-17 07:53] LABS: GFR AFRICAN AMERICAN 138 mL/min (>90)
[2021-04-17] MEDS: cefTRIAXone 1 GM IVPB PREMIX 50 ML IV SCH (08:01)
[2021-04-17] MEDS: ASCORBIC ACID 500 MG TABLET PO SCH (08:08)
[2021-04-17] MEDS: CHOLECALCIFEROL (VITAMIN D3) 5,000 UNIT TABLET PO SCH (08:08)
[2021-04-17] MEDS: PANTOPRAZOLE SODIUM 40 MG/VIAL (PROTONIX) IVP SCH (08:08)
[2021-04-17] MEDS: DEXAMETHASONE SOD PHOSPHATE 10 MG/ML VIAL IVP SCH (08:08)
[2021-04-17] MEDS: THEOPHYLLINE ANHYDROUS 200 MG CAP.ER.24H PO SCH (08:09)
[2021-04-17] MEDS: ENOXAPARIN SODIUM 100 MG/ML SYRINGE SUBCUT SCH ×2 (08:17→20:33)
[2021-04-17] MEDS ORDERED: NALOXONE HCL 0.4 MG/ML AMP (NARCAN) IVP PRN (08:30)
[2021-04-17 08:59] LABS: C-REACTIVE PROTEIN QUANT 0.5 mg/dL (0-0.5)
[2021-04-17 09:27] LABS: ERYTHROCYTE SEDIMENTATION RATE 9 MM/HR (0-20)
[2021-04-17] MEDS ORDERED: MORPHINE SULFATE IN 0.9 % NACL 100 ML IV ONE (10:00)
[2021-04-17] MEDS: MIDAZOLAM HCL IN 0.9 % NACL/PF 50 ML IV PRN (10:12)
[2021-04-17] MEDS: MORPHINE SULFATE IN 0.9 % NACL 100 ML IV PRN (10:13)
[2021-04-17 12:45] LABS: THEOPHYLLINE < 2.0 ug/mL (10.0-20.0)
[2021-04-17] MEDS ORDERED: ROCURONIUM BROMIDE 10 MG/ML (ZEMURON) IV PRN (13:45)
[2021-04-17] MEDS: DOPamine PREMIX 250 ML IV PRN (13:54)
[2021-04-17] MEDS: EPINEPHrine 5 MG in NS 245 ML IV PRN (15:31)
[2021-04-17] MEDS: ATROPINE SULFATE 0.4 MG/ML VIAL IVP PRN (15:33)
[2021-04-17] MEDS: MICAFUNGIN SODIUM 100 MG in NS 100 ML IV SCH (17:54)
[2021-04-17] MEDS: AZITHROMYCIN 500 MG in NS 250 ML IV SCH (20:32)
[2021-04-18] VITALS (35 sets, daily range): BP systolic 89–130
[2021-04-18] MEDS: ERYTHROMYCIN BASE 500 MG TABLET NG SCH ×5 (00:40→23:10)
[2021-04-18] MEDS: MIDAZOLAM HCL IN 0.9 % NACL/PF 50 ML IV PRN ×2 (03:10→15:09)
[2021-04-18] MEDS: PROPOFOL DRIP 100 ML IV PRN ×3 (03:14→11:02)
[2021-04-18] MEDS: ALBUTEROL MDI INHALATION 8 GM INH INH SCH ×6 (03:21→23:30)
[2021-04-18] MEDS: NORMAL SALINE 5 ML DISP.SYRIN IVF SCH ×3 (05:26→22:41)
[2021-04-18] MEDS: VECURONIUM BROMIDE 50 MG in NS 50 ML IV PRN (05:27)
[2021-04-18] MEDS ORDERED: MORPHINE SULFATE IN 0.9 % NACL 100 ML IV ONE ×2 (06:07→22:54)
[2021-04-18 06:28] LABS: BASOPHILS # (AUTO) 0.2 K/uL (0.0-0.2); BASOPHILS % (AUTO) 0.8 % (0.0-2.0); EOSINOPHILS # (AUTO) 0.4 K/uL (0.0-0.4); EOSINOPHILS % (AUTO) 1.6 % (0.0-4.0); HEMATOCRIT 32.9 % (36-48); HEMOGLOBIN 11.1 g/dL (12.0-16.0); LYMPHOCYTES # (AUTO) 1.7 K/uL (1.0-5.5); MEAN CORPUSCULAR HEMOGLOBIN 31 pg (27-31); MEAN CORPUSCULAR HGB CONC 34 % (32-36); MEAN CORPUSCULAR VOLUME 92 fL (79.0-98.0); MONOCYTES # (AUTO) 1.4 K/uL (0.0-1.0); MONOCYTES % (AUTO) 5.9 % (1.7-9.3); PLATELET COUNT (AUTO) 454 K/uL (130-430); RED BLOOD CELL COUNT(AUTO) 3.57 MIL/uL (4.2-6.2); RED CELL DISTRIBUTION WIDTH 15.9 % (9.0-15.0); WHITE BLOOD COUNT (AUTO) 23.6 K/uL (4.8-10.8)
[2021-04-18 06:34] LABS: CALCIUM 8.5 mg/dL (8.4-11.0); CREATININE 0.81 mg/dL (0.55-1.30); POTASSIUM 4.4 mmol/L (3.5-5.1)
[2021-04-18] MEDS: MORPHINE SULFATE IN 0.9 % NACL 100 ML IV PRN ×2 (06:47→23:02)
[2021-04-18] MEDS: ENOXAPARIN SODIUM 100 MG/ML SYRINGE SUBCUT SCH (08:26)
[2021-04-18] MEDS: DEXAMETHASONE SOD PHOSPHATE 10 MG/ML VIAL IVP SCH (08:27)
[2021-04-18] MEDS: ASCORBIC ACID 500 MG TABLET PO SCH (08:27)
[2021-04-18] MEDS: CHOLECALCIFEROL (VITAMIN D3) 5,000 UNIT TABLET PO SCH (08:27)
[2021-04-18] MEDS: PANTOPRAZOLE SODIUM 40 MG/VIAL (PROTONIX) IVP SCH (08:27)
[2021-04-18] MEDS: cefTRIAXone 1 GM IVPB PREMIX 50 ML IV SCH (08:29)
[2021-04-18] MEDS: THEOPHYLLINE ANHYDROUS 200 MG CAP.ER.24H PO SCH (08:29)
[2021-04-18 09:17] LABS: C-REACTIVE PROTEIN QUANT 0.2 mg/dL (0-0.5)
[2021-04-18 09:41] LABS: ERYTHROCYTE SEDIMENTATION RATE 10 MM/HR (0-20)
[2021-04-18 10:59] LABS: NEUTROPHILS % (AUTO) 84.7 % (40.0-70.0)
[2021-04-18] MEDS: FLUCONAZOLE 400 mg/ NS 200 ML IV SCH (11:00)
[2021-04-18] MEDS ORDERED: PROPOFOL DRIP 100 ML IV PRN (12:15)
[2021-04-18] MEDS: PIPERACILLIN/TAZO 4.5GM/DEX-IS 100 ML IV SCH ×2 (12:58→22:59)
[2021-04-18] MEDS ORDERED: VECURONIUM BROMIDE 10 MG/VIAL (NORCURON) ONE (14:57)
[2021-04-18] MEDS: ENOXAPARIN SODIUM 40 MG/0.4 ML SYRINGE SUBCUT SCH (21:00)
[2021-04-19] VITALS (36 sets, daily range): BP systolic 97–161
[2021-04-19] MEDS: PROPOFOL DRIP 100 ML IV PRN ×3 (01:12→12:19)
[2021-04-19] MEDS: EPINEPHrine 5 MG in NS 245 ML IV PRN (01:14)
[2021-04-19] MEDS: VECURONIUM BROMIDE 50 MG in NS 50 ML IV PRN ×2 (01:16→09:29)
[2021-04-19] MEDS: ALBUTEROL MDI INHALATION 8 GM INH INH SCH ×6 (03:51→23:17)
[2021-04-19] MEDS: NORMAL SALINE 5 ML DISP.SYRIN IVF SCH ×3 (06:20→22:13)
[2021-04-19] MEDS: ERYTHROMYCIN BASE 500 MG TABLET NG SCH ×4 (06:20→23:01)
[2021-04-19] MEDS: PIPERACILLIN/TAZO 4.5GM/DEX-IS 100 ML IV SCH ×3 (06:22→22:40)
[2021-04-19 06:39] LABS: BASOPHILS % (AUTO) 0.1 % (0.0-2.0); HEMOGLOBIN 10.6 g/dL (12.0-16.0); LYMPHOCYTES # (AUTO) 1.2 K/uL (1.0-5.5); LYMPHOCYTES % (AUTO) 6.7 % (20.5-51.5); MEAN CORPUSCULAR HEMOGLOBIN 31 pg (27-31); MEAN CORPUSCULAR HGB CONC 33 % (32-36); MEAN CORPUSCULAR VOLUME 93 fL (79.0-98.0); MONOCYTES # (AUTO) 1.5 K/uL (0.0-1.0); MONOCYTES % (AUTO) 8.6 % (1.7-9.3); NEUTROPHILS # (AUTO) 14.9 K/uL (1.8-7.7); NEUTROPHILS % (AUTO) 84.6 % (40.0-70.0); PLATELET COUNT (AUTO) 396 K/uL (130-430); RED BLOOD CELL COUNT(AUTO) 3.44 MIL/uL (4.2-6.2); RED CELL DISTRIBUTION WIDTH 16.5 % (9.0-15.0); WHITE BLOOD COUNT (AUTO) 17.7 K/uL (4.8-10.8)
[2021-04-19 06:53] LABS: ALANINE AMINOTRANSFERASE 68 U/L (12-78); ALBUMIN 2.9 g/dL (3.4-4.8); ASPARTATE AMINOTRANSFERASE 33 U/L (10-37); CALCIUM 8.1 mg/dL (8.4-11.0); CHLORIDE 108 mmol/L (98-107); CREATININE 0.83 mg/dL (0.55-1.30); GLUCOSE 237 mg/dL (70-99); POTASSIUM 4.8 mmol/L (3.5-5.1); SODIUM SERUM 144 mmol/L (136-145); TOTAL BILIRUBIN 0.4 mg/dL (0.0-1.0); UREA NITROGEN, BLOOD 24 mg/dL (8-21)
[2021-04-19 07:01] LABS: GFR AFRICAN AMERICAN 100 mL/min (>90)
[2021-04-19 07:02] LABS: ANION GAP < 3 (5-15)
[2021-04-19 07:32] LABS: C-REACTIVE PROTEIN QUANT < 0.2 mg/dL (0-0.5)
[2021-04-19] MEDS: ENOXAPARIN SODIUM 40 MG/0.4 ML SYRINGE SUBCUT SCH ×2 (08:42→21:00)
[2021-04-19] MEDS: ASCORBIC ACID 500 MG TABLET PO SCH (08:42)
[2021-04-19] MEDS: CHOLECALCIFEROL (VITAMIN D3) 5,000 UNIT TABLET PO SCH (08:42)
[2021-04-19] MEDS: PANTOPRAZOLE SODIUM 40 MG/VIAL (PROTONIX) IVP SCH (08:42)
[2021-04-19] MEDS: DEXAMETHASONE SOD PHOSPHATE 10 MG/ML VIAL IVP SCH (08:43)
[2021-04-19] MEDS: THEOPHYLLINE ANHYDROUS 200 MG CAP.ER.24H PO SCH (08:44)
[2021-04-19 08:55] LABS: ERYTHROCYTE SEDIMENTATION RATE 15 MM/HR (0-20)
[2021-04-19] MEDS: FLUCONAZOLE 400 mg/ NS 200 ML IV SCH (11:23)
[2021-04-19] MEDS ORDERED: MORPHINE SULFATE IN 0.9 % NACL 100 ML IV ONE ×2 (12:03→23:43)
[2021-04-19] MEDS: MIDAZOLAM HCL IN 0.9 % NACL/PF 50 ML IV PRN (12:21)
[2021-04-20] VITALS (30 sets, daily range): BP systolic 110–157
[2021-04-20] MEDS: MORPHINE SULFATE IN 0.9 % NACL 100 ML IV PRN ×2 (00:33→11:50)
[2021-04-20] MEDS: EPINEPHrine 5 MG in NS 245 ML IV PRN (01:11)
[2021-04-20] MEDS: ALBUTEROL MDI INHALATION 8 GM INH INH SCH ×4 (03:28→19:51)
[2021-04-20] MEDS: NORMAL SALINE 5 ML DISP.SYRIN IVF SCH ×3 (06:17→23:43)
[2021-04-20] MEDS: ERYTHROMYCIN BASE 500 MG TABLET NG SCH ×3 (06:18→18:59)
[2021-04-20] MEDS: PIPERACILLIN/TAZO 4.5GM/DEX-IS 100 ML IV SCH ×3 (06:19→22:26)
[2021-04-20] MEDS: ASCORBIC ACID 500 MG TABLET PO SCH (09:49)
[2021-04-20] MEDS: PANTOPRAZOLE SODIUM 40 MG/VIAL (PROTONIX) IVP SCH (09:49)
[2021-04-20] MEDS: CHOLECALCIFEROL (VITAMIN D3) 5,000 UNIT TABLET PO SCH (09:49)
[2021-04-20] MEDS: DEXAMETHASONE SOD PHOSPHATE 10 MG/ML VIAL IVP SCH (09:49)
[2021-04-20] MEDS: THEOPHYLLINE ANHYDROUS 200 MG CAP.ER.24H PO SCH (09:50)
[2021-04-20] MEDS: ENOXAPARIN SODIUM 40 MG/0.4 ML SYRINGE SUBCUT SCH ×2 (09:51→22:30)
[2021-04-20] MEDS: VECURONIUM BROMIDE 50 MG in NS 50 ML IV PRN ×2 (10:40→22:30)
[2021-04-20] MEDS: PROPOFOL DRIP 100 ML IV PRN ×4 (11:13→22:30)
[2021-04-20] MEDS ORDERED: MORPHINE SULFATE IN 0.9 % NACL 100 ML IV ONE (11:46)
[2021-04-20] MEDS: FLUCONAZOLE 200 mg/ NS 100 ML IV SCH (11:48)
[2021-04-20] MEDS: MIDAZOLAM HCL IN 0.9 % NACL/PF 50 ML IV PRN ×2 (12:18→23:42)
[2021-04-21] VITALS (34 sets, daily range): BP systolic 100–121
[2021-04-21] MEDS: ALBUTEROL MDI INHALATION 8 GM INH INH SCH ×7 (00:32→23:41)
[2021-04-21] MEDS: ERYTHROMYCIN BASE 500 MG TABLET NG SCH ×5 (00:46→23:17)
[2021-04-21] MEDS: VECURONIUM BROMIDE 50 MG in NS 50 ML IV PRN ×2 (04:17→07:16)
[2021-04-21] MEDS: PROPOFOL DRIP 100 ML IV PRN ×2 (04:18→06:43)
[2021-04-21] MEDS: PIPERACILLIN/TAZO 4.5GM/DEX-IS 100 ML IV SCH ×3 (06:41→22:40)
[2021-04-21] MEDS ORDERED: PROPOFOL DRIP 100 ML IV ONE (06:42)
[2021-04-21] MEDS: NORMAL SALINE 5 ML DISP.SYRIN IVF SCH ×3 (06:44→22:40)
[2021-04-21 06:50] LABS: BASOPHILS % (AUTO) 0.2 % (0.0-2.0); EOSINOPHILS # (AUTO) 0.1 K/uL (0.0-0.4); EOSINOPHILS % (AUTO) 0.7 % (0.0-4.0); LYMPHOCYTES # (AUTO) 1.7 K/uL (1.0-5.5); LYMPHOCYTES % (AUTO) 11.7 % (20.5-51.5); MEAN CORPUSCULAR HEMOGLOBIN 31 pg (27-31); MEAN CORPUSCULAR HGB CONC 33 % (32-36); MEAN CORPUSCULAR VOLUME 93 fL (79.0-98.0); NEUTROPHILS # (AUTO) 11.4 K/uL (1.8-7.7); NEUTROPHILS % (AUTO) 80.4 % (40.0-70.0); PLATELET COUNT (AUTO) 316 K/uL (130-430); RED BLOOD CELL COUNT(AUTO) 3.23 MIL/uL (4.2-6.2); RED CELL DISTRIBUTION WIDTH 16.6 % (9.0-15.0); WHITE BLOOD COUNT (AUTO) 14.2 K/uL (4.8-10.8)
[2021-04-21] MEDS ORDERED: MORPHINE SULFATE IN 0.9 % NACL 100 ML IV ONE (07:13)
[2021-04-21] MEDS: MORPHINE SULFATE IN 0.9 % NACL 100 ML IV PRN (07:15)
[2021-04-21 07:31] LABS: ANION GAP 5 (5-15); CALCIUM 8.8 mg/dL (8.4-11.0); CHLORIDE 102 mmol/L (98-107); CREATININE 0.48 mg/dL (0.55-1.30); GLUCOSE 174 mg/dL (70-99); POTASSIUM 4.1 mmol/L (3.5-5.1); SODIUM SERUM 140 mmol/L (136-145); UREA NITROGEN, BLOOD 18 mg/dL (8-21)
[2021-04-21 07:42] LABS: GFR AFRICAN AMERICAN 188 mL/min (>90)
[2021-04-21 07:43] LABS: C-REACTIVE PROTEIN QUANT < 0.2 mg/dL (0-0.5)
[2021-04-21] MEDS: PANTOPRAZOLE SODIUM 40 MG/VIAL (PROTONIX) IVP SCH (08:37)
[2021-04-21] MEDS: ASCORBIC ACID 500 MG TABLET PO SCH (08:37)
[2021-04-21] MEDS: CHOLECALCIFEROL (VITAMIN D3) 5,000 UNIT TABLET PO SCH (08:37)
[2021-04-21] MEDS: DEXAMETHASONE SOD PHOSPHATE 10 MG/ML VIAL IVP SCH (08:38)
[2021-04-21] MEDS: ENOXAPARIN SODIUM 40 MG/0.4 ML SYRINGE SUBCUT SCH ×2 (08:39→20:07)
[2021-04-21] MEDS: THEOPHYLLINE ANHYDROUS 200 MG CAP.ER.24H PO SCH (08:46)
[2021-04-21] MEDS: FLUCONAZOLE 200 mg/ NS 100 ML IV SCH (10:51)
[2021-04-21 11:11] LABS: ERYTHROCYTE SEDIMENTATION RATE 7 MM/HR (0-20)
[2021-04-22] VITALS (32 sets, daily range): BP systolic 94–161
[2021-04-22] MEDS: PROPOFOL DRIP 100 ML IV PRN ×3 (00:12→08:03)
[2021-04-22] MEDS: ALBUTEROL MDI INHALATION 8 GM INH INH SCH ×5 (03:29→20:05)
[2021-04-22] MEDS ORDERED: MORPHINE SULFATE IN 0.9 % NACL 100 ML IV ONE ×2 (03:49→20:40)
[2021-04-22] MEDS: MIDAZOLAM HCL IN 0.9 % NACL/PF 50 ML IV PRN (04:12)
[2021-04-22] MEDS: MORPHINE SULFATE IN 0.9 % NACL 100 ML IV PRN ×2 (04:14→21:31)
[2021-04-22] MEDS: ERYTHROMYCIN BASE 500 MG TABLET NG SCH ×3 (05:51→18:09)
[2021-04-22] MEDS: PIPERACILLIN/TAZO 4.5GM/DEX-IS 100 ML IV SCH ×3 (05:51→21:30)
[2021-04-22] MEDS: NORMAL SALINE 5 ML DISP.SYRIN IVF SCH ×2 (06:00→14:01)
[2021-04-22 06:40] LABS: CALCIUM 8.7 mg/dL (8.4-11.0); CREATININE 0.52 mg/dL (0.55-1.30); POTASSIUM 3.8 mmol/L (3.5-5.1)
[2021-04-22 07:14] LABS: C-REACTIVE PROTEIN QUANT 0.3 mg/dL (0-0.5)
[2021-04-22] MEDS: ASCORBIC ACID 500 MG TABLET PO SCH (08:26)
[2021-04-22] MEDS: DEXAMETHASONE SOD PHOSPHATE 10 MG/ML VIAL IVP SCH (08:26)
[2021-04-22] MEDS: PANTOPRAZOLE SODIUM 40 MG/VIAL (PROTONIX) IVP SCH (08:26)
[2021-04-22] MEDS: CHOLECALCIFEROL (VITAMIN D3) 5,000 UNIT TABLET PO SCH (08:26)
[2021-04-22] MEDS: ENOXAPARIN SODIUM 40 MG/0.4 ML SYRINGE SUBCUT SCH ×2 (08:27→20:23)
[2021-04-22 09:11] LABS: BASOPHILS % (AUTO) 0.3 % (0.0-2.0); EOSINOPHILS # (AUTO) 0.2 K/uL (0.0-0.4); EOSINOPHILS % (AUTO) 1.4 % (0.0-4.0); HEMATOCRIT 35.2 % (36-48); HEMOGLOBIN 11.6 g/dL (12.0-16.0); LYMPHOCYTES # (AUTO) 1.2 K/uL (1.0-5.5); LYMPHOCYTES % (AUTO) 10.3 % (20.5-51.5); MEAN CORPUSCULAR HEMOGLOBIN 31 pg (27-31); MEAN CORPUSCULAR HGB CONC 33 % (32-36); MEAN CORPUSCULAR VOLUME 93 fL (79.0-98.0); MONOCYTES # (AUTO) 0.6 K/uL (0.0-1.0); MONOCYTES % (AUTO) 5.3 % (1.7-9.3); NEUTROPHILS # (AUTO) 9.4 K/uL (1.8-7.7); NEUTROPHILS % (AUTO) 82.7 % (40.0-70.0); PLATELET COUNT (AUTO) 295 K/uL (130-430); RED BLOOD CELL COUNT(AUTO) 3.79 MIL/uL (4.2-6.2); RED CELL DISTRIBUTION WIDTH 15.9 % (9.0-15.0); WHITE BLOOD COUNT (AUTO) 11.3 K/uL (4.8-10.8)
[2021-04-22 10:00] LABS: ERYTHROCYTE SEDIMENTATION RATE 8 MM/HR (0-20)
[2021-04-22] MEDS: ATROPINE SULFATE 0.4 MG/ML VIAL IVP PRN (11:24)
[2021-04-22] MEDS: THEOPHYLLINE ANHYDROUS 200 MG CAP.ER.24H PO SCH (11:43)
[2021-04-22] MEDS: FLUCONAZOLE 200 mg/ NS 100 ML IV SCH (11:43)
[2021-04-22] MEDS: VECURONIUM BROMIDE 50 MG in NS 50 ML IV PRN (19:22)
[2021-04-23] VITALS (34 sets, daily range): BP systolic 102–130
[2021-04-23] MEDS: ALBUTEROL MDI INHALATION 8 GM INH INH SCH ×6 (00:35→20:49)
[2021-04-23] MEDS: PROPOFOL DRIP 100 ML IV PRN ×4 (01:17→13:39)
[2021-04-23] MEDS: ERYTHROMYCIN BASE 500 MG TABLET NG SCH (01:18)
[2021-04-23] MEDS: MIDAZOLAM HCL IN 0.9 % NACL/PF 50 ML IV PRN (01:21)
[2021-04-23] MEDS: PIPERACILLIN/TAZO 4.5GM/DEX-IS 100 ML IV SCH ×3 (06:45→22:55)
[2021-04-23 07:01] LABS: BASOPHILS % (AUTO) 0.3 % (0.0-2.0); EOSINOPHILS # (AUTO) 0.2 K/uL (0.0-0.4); EOSINOPHILS % (AUTO) 2.5 % (0.0-4.0); HEMATOCRIT 36.1 % (36-48); HEMOGLOBIN 12.1 g/dL (12.0-16.0); LYMPHOCYTES # (AUTO) 1.2 K/uL (1.0-5.5); LYMPHOCYTES % (AUTO) 13.9 % (20.5-51.5); MEAN CORPUSCULAR HEMOGLOBIN 31 pg (27-31); MEAN CORPUSCULAR HGB CONC 33 % (32-36); MEAN CORPUSCULAR VOLUME 93 fL (79.0-98.0); MONOCYTES # (AUTO) 0.5 K/uL (0.0-1.0); MONOCYTES % (AUTO) 5.9 % (1.7-9.3); NEUTROPHILS # (AUTO) 6.9 K/uL (1.8-7.7); NEUTROPHILS % (AUTO) 77.4 % (40.0-70.0); PLATELET COUNT (AUTO) 293 K/uL (130-430); RED BLOOD CELL COUNT(AUTO) 3.88 MIL/uL (4.2-6.2); RED CELL DISTRIBUTION WIDTH 16.1 % (9.0-15.0); WHITE BLOOD COUNT (AUTO) 8.9 K/uL (4.8-10.8)
[2021-04-23 07:51] LABS: ANION GAP 7 (5-15); CALCIUM 8.9 mg/dL (8.4-11.0); CHLORIDE 100 mmol/L (98-107); CREATININE 0.47 mg/dL (0.55-1.30); GLUCOSE 183 mg/dL (70-99); POTASSIUM 3.7 mmol/L (3.5-5.1); SODIUM SERUM 140 mmol/L (136-145); UREA NITROGEN, BLOOD 18 mg/dL (8-21)
[2021-04-23 08:06] LABS: GFR AFRICAN AMERICAN 193 mL/min (>90)
[2021-04-23] MEDS: PANTOPRAZOLE SODIUM 40 MG/VIAL (PROTONIX) IVP SCH (08:09)
[2021-04-23] MEDS: CHOLECALCIFEROL (VITAMIN D3) 5,000 UNIT TABLET PO SCH (08:10)
[2021-04-23] MEDS: THEOPHYLLINE ANHYDROUS 200 MG CAP.ER.24H PO SCH (08:10)
[2021-04-23] MEDS: ENOXAPARIN SODIUM 40 MG/0.4 ML SYRINGE SUBCUT SCH (08:10)
[2021-04-23] MEDS: ASCORBIC ACID 500 MG TABLET PO SCH (08:10)
[2021-04-23] MEDS: VECURONIUM BROMIDE 50 MG in NS 50 ML IV PRN (08:11)
[2021-04-23 08:16] LABS: C-REACTIVE PROTEIN QUANT < 0.2 mg/dL (0-0.5)
[2021-04-23 10:12] LABS: ERYTHROCYTE SEDIMENTATION RATE 6 MM/HR (0-20)
[2021-04-23] MEDS: FLUCONAZOLE 200 mg/ NS 100 ML IV SCH (12:18)
[2021-04-23] MEDS: MORPHINE SULFATE IN 0.9 % NACL 100 ML IV PRN (13:23)
[2021-04-23] MEDS ORDERED: MORPHINE SULFATE IN 0.9 % NACL 100 ML IV ONE (13:26)
[2021-04-24] VITALS (30 sets, daily range): BP systolic 105–138
[2021-04-24] MEDS: ENOXAPARIN SODIUM 40 MG/0.4 ML SYRINGE SUBCUT SCH ×3 (00:05→20:10)
[2021-04-24] MEDS: ALBUTEROL MDI INHALATION 8 GM INH INH SCH ×5 (03:48→23:35)
[2021-04-24] MEDS: PIPERACILLIN/TAZO 4.5GM/DEX-IS 100 ML IV SCH ×3 (05:55→21:13)
[2021-04-24 06:28] LABS: BASOPHILS % (AUTO) 0.4 % (0.0-2.0); EOSINOPHILS # (AUTO) 0.8 K/uL (0.0-0.4); EOSINOPHILS % (AUTO) 6.8 % (0.0-4.0); HEMATOCRIT 32.6 % (36-48); HEMOGLOBIN 10.9 g/dL (12.0-16.0); LYMPHOCYTES # (AUTO) 1.7 K/uL (1.0-5.5); LYMPHOCYTES % (AUTO) 14.6 % (20.5-51.5); MEAN CORPUSCULAR HEMOGLOBIN 31 pg (27-31); MEAN CORPUSCULAR HGB CONC 34 % (32-36); MEAN CORPUSCULAR VOLUME 93 fL (79.0-98.0); MONOCYTES # (AUTO) 0.5 K/uL (0.0-1.0); MONOCYTES % (AUTO) 4.2 % (1.7-9.3); NEUTROPHILS # (AUTO) 8.4 K/uL (1.8-7.7); PLATELET COUNT (AUTO) 270 K/uL (130-430); RED BLOOD CELL COUNT(AUTO) 3.49 MIL/uL (4.2-6.2); RED CELL DISTRIBUTION WIDTH 16.6 % (9.0-15.0); WHITE BLOOD COUNT (AUTO) 11.3 K/uL (4.8-10.8)
[2021-04-24 08:04] LABS: ALANINE AMINOTRANSFERASE 42 U/L (12-78); ALBUMIN 2.7 g/dL (3.4-4.8); ANION GAP 7 (5-15); ASPARTATE AMINOTRANSFERASE 25 U/L (10-37); C-REACTIVE PROTEIN QUANT < 0.2 mg/dL (0-0.5); CALCIUM 8.9 mg/dL (8.4-11.0); CHLORIDE 102 mmol/L (98-107); CREATININE 0.64 mg/dL (0.55-1.30); GLUCOSE 164 mg/dL (70-99); POTASSIUM 3.2 mmol/L (3.5-5.1); SODIUM SERUM 141 mmol/L (136-145); TOTAL BILIRUBIN 0.4 mg/dL (0.0-1.0); UREA NITROGEN, BLOOD 28 mg/dL (8-21)
[2021-04-24 08:05] LABS: GFR AFRICAN AMERICAN 135 mL/min (>90)
[2021-04-24] MEDS ORDERED: MORPHINE SULFATE IN 0.9 % NACL 100 ML IV ONE (09:12)
[2021-04-24] MEDS: ASCORBIC ACID 500 MG TABLET PO SCH (09:39)
[2021-04-24] MEDS: PANTOPRAZOLE SODIUM 40 MG/VIAL (PROTONIX) IVP SCH (09:39)
[2021-04-24] MEDS: CHOLECALCIFEROL (VITAMIN D3) 5,000 UNIT TABLET PO SCH (09:39)
[2021-04-24] MEDS: THEOPHYLLINE ANHYDROUS 200 MG CAP.ER.24H PO SCH (09:39)
[2021-04-24] MEDS: PROPOFOL DRIP 100 ML IV PRN (09:46)
[2021-04-24] MEDS: MIDAZOLAM HCL IN 0.9 % NACL/PF 50 ML IV PRN ×2 (09:47→22:21)
[2021-04-24] MEDS: MORPHINE SULFATE IN 0.9 % NACL 100 ML IV PRN (09:47)
[2021-04-24 10:31] LABS: ERYTHROCYTE SEDIMENTATION RATE 9 MM/HR (0-20)
[2021-04-24] MEDS: FLUCONAZOLE 200 mg/ NS 100 ML IV SCH (12:37)
[2021-04-24] MEDS ORDERED: FUROSEMIDE 20 MG/2 ML VIAL IVP ONE (17:15)
[2021-04-25] VITALS (30 sets, daily range): BP systolic 112–134
[2021-04-25] MEDS: PROPOFOL DRIP 100 ML IV PRN (03:30)
[2021-04-25] MEDS: ALBUTEROL MDI INHALATION 8 GM INH INH SCH ×6 (03:31→23:31)
[2021-04-25 06:24] LABS: BASOPHILS % (AUTO) 0.3 % (0.0-2.0); EOSINOPHILS # (AUTO) 0.9 K/uL (0.0-0.4); EOSINOPHILS % (AUTO) 6.9 % (0.0-4.0); HEMATOCRIT 35.3 % (36-48); HEMOGLOBIN 11.5 g/dL (12.0-16.0); LYMPHOCYTES # (AUTO) 1.6 K/uL (1.0-5.5); LYMPHOCYTES % (AUTO) 12.2 % (20.5-51.5); MEAN CORPUSCULAR HEMOGLOBIN 30 pg (27-31); MEAN CORPUSCULAR HGB CONC 33 % (32-36); MEAN CORPUSCULAR VOLUME 94 fL (79.0-98.0); MONOCYTES # (AUTO) 0.5 K/uL (0.0-1.0); MONOCYTES % (AUTO) 4.2 % (1.7-9.3); NEUTROPHILS # (AUTO) 9.8 K/uL (1.8-7.7); NEUTROPHILS % (AUTO) 76.4 % (40.0-70.0); PLATELET COUNT (AUTO) 276 K/uL (130-430); RED BLOOD CELL COUNT(AUTO) 3.77 MIL/uL (4.2-6.2); RED CELL DISTRIBUTION WIDTH 16.6 % (9.0-15.0); WHITE BLOOD COUNT (AUTO) 12.9 K/uL (4.8-10.8)
[2021-04-25 07:15] LABS: C-REACTIVE PROTEIN QUANT 7.1 mg/dL (0-0.5); CREATININE 0.52 mg/dL (0.55-1.30); POTASSIUM 3.3 mmol/L (3.5-5.1)
[2021-04-25] MEDS: THEOPHYLLINE ANHYDROUS 200 MG CAP.ER.24H PO SCH (09:00)
[2021-04-25] MEDS: ASCORBIC ACID 500 MG TABLET PO SCH (09:02)
[2021-04-25] MEDS: PANTOPRAZOLE SODIUM 40 MG/VIAL (PROTONIX) IVP SCH (09:02)
[2021-04-25] MEDS: CHOLECALCIFEROL (VITAMIN D3) 5,000 UNIT TABLET PO SCH (09:03)
[2021-04-25] MEDS: FUROSEMIDE 20 MG/2 ML VIAL IVP SCH (09:03)
[2021-04-25] MEDS: ENOXAPARIN SODIUM 40 MG/0.4 ML SYRINGE SUBCUT SCH ×2 (09:04→21:03)
[2021-04-25] MEDS: FLUCONAZOLE 200 mg/ NS 100 ML IV SCH (11:11)
[2021-04-25 11:43] LABS: ERYTHROCYTE SEDIMENTATION RATE 25 MM/HR (0-20)
[2021-04-25] MEDS ORDERED: MORPHINE SULFATE IN 0.9 % NACL 100 ML IV ONE (12:37)
[2021-04-25] MEDS: MORPHINE SULFATE IN 0.9 % NACL 100 ML IV PRN (12:53)
[2021-04-25] MEDS ORDERED: POTASSIUM CHLORIDE 20 MEQ/PKT PACKET PO ONE (15:30)
[2021-04-25] MEDS ORDERED: IOHEXOL 350 mgI/mL, 150 ML INFUS..BTL IV ONE (15:48)
[2021-04-26] VITALS (31 sets, daily range): BP systolic 104–156
[2021-04-26] MEDS: ALBUTEROL MDI INHALATION 8 GM INH INH SCH ×6 (03:21→23:28)
[2021-04-26 07:40] LABS: BASOPHILS % (AUTO) 0.4 % (0.0-2.0); EOSINOPHILS # (AUTO) 0.9 K/uL (0.0-0.4); EOSINOPHILS % (AUTO) 8.7 % (0.0-4.0); HEMATOCRIT 34.1 % (36-48); HEMOGLOBIN 11.5 g/dL (12.0-16.0); LYMPHOCYTES % (AUTO) 10.2 % (20.5-51.5); MEAN CORPUSCULAR HEMOGLOBIN 31 pg (27-31); MEAN CORPUSCULAR HGB CONC 34 % (32-36); MEAN CORPUSCULAR VOLUME 94 fL (79.0-98.0); MONOCYTES # (AUTO) 0.6 K/uL (0.0-1.0); NEUTROPHILS # (AUTO) 7.4 K/uL (1.8-7.7); NEUTROPHILS % (AUTO) 74.7 % (40.0-70.0); PLATELET COUNT (AUTO) 228 K/uL (130-430); RED BLOOD CELL COUNT(AUTO) 3.65 MIL/uL (4.2-6.2); RED CELL DISTRIBUTION WIDTH 17.1 % (9.0-15.0)
[2021-04-26 07:48] LABS: ALBUMIN 2.4 g/dL (3.4-4.8); CALCIUM 8.9 mg/dL (8.4-11.0); CREATININE 0.41 mg/dL (0.55-1.30); PHOSPHORUS 3.3 mg/dL (2.7-4.5); POTASSIUM 3.4 mmol/L (3.5-5.1); TOTAL BILIRUBIN 0.4 mg/dL (0.0-1.0)
[2021-04-26 08:15] LABS: C-REACTIVE PROTEIN QUANT 13.6 mg/dL (0-0.5)
[2021-04-26] MEDS: THEOPHYLLINE ANHYDROUS 200 MG CAP.ER.24H PO SCH (09:00)
[2021-04-26 09:13] LABS: ERYTHROCYTE SEDIMENTATION RATE 43 MM/HR (0-20)
[2021-04-26] MEDS: FUROSEMIDE 20 MG/2 ML VIAL IVP SCH (09:59)
[2021-04-26] MEDS: PANTOPRAZOLE SODIUM 40 MG/VIAL (PROTONIX) IVP SCH (09:59)
[2021-04-26] MEDS: ASCORBIC ACID 500 MG TABLET PO SCH (10:00)
[2021-04-26] MEDS: CHOLECALCIFEROL (VITAMIN D3) 5,000 UNIT TABLET PO SCH (10:00)
[2021-04-26] MEDS ORDERED: POTASSIUM CHLORIDE 20 MEQ/PKT PACKET NG ONE (12:00)
[2021-04-26] MEDS: FLUCONAZOLE 200 mg/ NS 100 ML IV SCH (12:26)
[2021-04-26] MEDS: ENOXAPARIN SODIUM 40 MG/0.4 ML SYRINGE SUBCUT SCH ×2 (12:28→20:26)
[2021-04-26] MEDS ORDERED: MORPHINE SULFATE IN 0.9 % NACL 100 ML IV ONE (13:37)
[2021-04-26] MEDS: MORPHINE SULFATE IN 0.9 % NACL 100 ML IV PRN (14:25)
[2021-04-26] MEDS: CEFEPIME 1 GM in D5W 50 ML IV SCH (20:26)
[2021-04-27] VITALS (36 sets, daily range): BP systolic 105–128
[2021-04-27] MEDS: ALBUTEROL MDI INHALATION 8 GM INH INH SCH ×6 (03:33→23:05)
[2021-04-27] MEDS: MIDAZOLAM HCL IN 0.9 % NACL/PF 50 ML IV PRN (03:35)
[2021-04-27 06:35] LABS: CALCIUM 8.6 mg/dL (8.4-11.0); CREATININE 0.59 mg/dL (0.55-1.30); POTASSIUM 4.1 mmol/L (3.5-5.1)
[2021-04-27 07:06] LABS: BASOPHILS % (AUTO) 0.3 % (0.0-2.0); EOSINOPHILS # (AUTO) 0.7 K/uL (0.0-0.4); EOSINOPHILS % (AUTO) 7.1 % (0.0-4.0); HEMATOCRIT 33.6 % (36-48); HEMOGLOBIN 11.2 g/dL (12.0-16.0); LYMPHOCYTES % (AUTO) 10.9 % (20.5-51.5); MEAN CORPUSCULAR HEMOGLOBIN 31 pg (27-31); MEAN CORPUSCULAR HGB CONC 33 % (32-36); MEAN CORPUSCULAR VOLUME 93 fL (79.0-98.0); MONOCYTES # (AUTO) 0.8 K/uL (0.0-1.0); MONOCYTES % (AUTO) 8.3 % (1.7-9.3); NEUTROPHILS # (AUTO) 6.9 K/uL (1.8-7.7); NEUTROPHILS % (AUTO) 73.4 % (40.0-70.0); PLATELET COUNT (AUTO) 249 K/uL (130-430); RED BLOOD CELL COUNT(AUTO) 3.62 MIL/uL (4.2-6.2); WHITE BLOOD COUNT (AUTO) 9.4 K/uL (4.8-10.8)
[2021-04-27 07:22] LABS: C-REACTIVE PROTEIN QUANT 19.7 mg/dL (0-0.5)
[2021-04-27] MEDS: PANTOPRAZOLE SODIUM 40 MG/VIAL (PROTONIX) IVP SCH (08:36)
[2021-04-27] MEDS: FUROSEMIDE 20 MG/2 ML VIAL IVP SCH (08:36)
[2021-04-27] MEDS: CHOLECALCIFEROL (VITAMIN D3) 5,000 UNIT TABLET PO SCH (08:36)
[2021-04-27] MEDS: ACETAMINOPHEN 325 MG TABLET PO PRN ×3 (08:37→18:47)
[2021-04-27] MEDS: ASCORBIC ACID 500 MG TABLET PO SCH (08:37)
[2021-04-27] MEDS: THEOPHYLLINE ANHYDROUS 200 MG CAP.ER.24H PO SCH (08:38)
[2021-04-27] MEDS: CEFEPIME 1 GM in D5W 50 ML IV SCH ×2 (08:38→20:30)
[2021-04-27] MEDS: ENOXAPARIN SODIUM 40 MG/0.4 ML SYRINGE SUBCUT SCH ×2 (08:40→20:32)
[2021-04-27 10:25] LABS: ERYTHROCYTE SEDIMENTATION RATE 74 MM/HR (0-20)
[2021-04-27] MEDS: FLUCONAZOLE 200 mg/ NS 100 ML IV SCH (12:49)
[2021-04-28] VITALS (32 sets, daily range): BP systolic 97–131
[2021-04-28] MEDS: MIDAZOLAM HCL IN 0.9 % NACL/PF 50 ML IV PRN (01:04)
[2021-04-28] MEDS: PROPOFOL DRIP 100 ML IV PRN ×2 (01:05→05:14)
[2021-04-28] MEDS: ALBUTEROL MDI INHALATION 8 GM INH INH SCH ×3 (03:19→20:18)
[2021-04-28 06:55] LABS: BASOPHILS # (AUTO) 0.1 K/uL (0.0-0.2); BASOPHILS % (AUTO) 0.6 % (0.0-2.0); EOSINOPHILS # (AUTO) 0.9 K/uL (0.0-0.4); EOSINOPHILS % (AUTO) 10.2 % (0.0-4.0); HEMATOCRIT 33.8 % (36-48); HEMOGLOBIN 11.2 g/dL (12.0-16.0); LYMPHOCYTES # (AUTO) 1.5 K/uL (1.0-5.5); LYMPHOCYTES % (AUTO) 16.3 % (20.5-51.5); MEAN CORPUSCULAR HEMOGLOBIN 31 pg (27-31); MEAN CORPUSCULAR HGB CONC 33 % (32-36); MEAN CORPUSCULAR VOLUME 94 fL (79.0-98.0); MONOCYTES # (AUTO) 0.9 K/uL (0.0-1.0); MONOCYTES % (AUTO) 10.2 % (1.7-9.3); NEUTROPHILS # (AUTO) 5.6 K/uL (1.8-7.7); NEUTROPHILS % (AUTO) 62.7 % (40.0-70.0); PLATELET COUNT (AUTO) 237 K/uL (130-430); RED BLOOD CELL COUNT(AUTO) 3.58 MIL/uL (4.2-6.2); RED CELL DISTRIBUTION WIDTH 17.2 % (9.0-15.0)
[2021-04-28 07:56] LABS: ALBUMIN 2.5 g/dL (3.4-4.8); CALCIUM 9.2 mg/dL (8.4-11.0); CREATININE 0.51 mg/dL (0.55-1.30); POTASSIUM 3.6 mmol/L (3.5-5.1); TOTAL BILIRUBIN 0.4 mg/dL (0.0-1.0)
[2021-04-28] MEDS: CHOLECALCIFEROL (VITAMIN D3) 5,000 UNIT TABLET PO SCH (08:11)
[2021-04-28] MEDS: THEOPHYLLINE ANHYDROUS 200 MG CAP.ER.24H PO SCH (08:11)
[2021-04-28] MEDS: ASCORBIC ACID 500 MG TABLET PO SCH (08:11)
[2021-04-28] MEDS: CEFEPIME 1 GM in D5W 50 ML IV SCH ×2 (08:12→21:42)
[2021-04-28] MEDS: FUROSEMIDE 20 MG/2 ML VIAL IVP SCH (08:12)
[2021-04-28] MEDS: PANTOPRAZOLE SODIUM 40 MG/VIAL (PROTONIX) IVP SCH (08:13)
[2021-04-28] MEDS: ENOXAPARIN SODIUM 40 MG/0.4 ML SYRINGE SUBCUT SCH ×2 (08:14→21:43)
[2021-04-28 08:36] LABS: ERYTHROCYTE SEDIMENTATION RATE 87 MM/HR (0-20)
[2021-04-28] MEDS: FLUCONAZOLE 200 mg/ NS 100 ML IV SCH (11:00)
[2021-04-28 11:12] LABS: C-REACTIVE PROTEIN QUANT 15.6 mg/dL (0-0.5)
[2021-04-28] MEDS: metroNIDAZOLE 250 mg/NS 50 ML IV SCH ×2 (14:00→23:02)
[2021-04-28] MEDS: MORPHINE SULFATE IN 0.9 % NACL 100 ML IV PRN (23:01)
[2021-04-29] VITALS (37 sets, daily range): BP systolic 98–144
[2021-04-29] MEDS: PROPOFOL DRIP 100 ML IV PRN ×2 (01:57→16:03)
[2021-04-29] MEDS: ONDANSETRON HCL 4 MG/2 ML VIAL IVP PRN (06:23)
[2021-04-29 06:32] LABS: BASOPHILS % (AUTO) 0.4 % (0.0-2.0); HEMATOCRIT 36.2 % (36-48); LYMPHOCYTES # (AUTO) 1.6 K/uL (1.0-5.5); LYMPHOCYTES % (AUTO) 19.2 % (20.5-51.5); MEAN CORPUSCULAR HEMOGLOBIN 31 pg (27-31); MEAN CORPUSCULAR HGB CONC 33 % (32-36); MEAN CORPUSCULAR VOLUME 93 fL (79.0-98.0); MONOCYTES # (AUTO) 0.7 K/uL (0.0-1.0); MONOCYTES % (AUTO) 9.1 % (1.7-9.3); NEUTROPHILS # (AUTO) 4.7 K/uL (1.8-7.7); NEUTROPHILS % (AUTO) 58.3 % (40.0-70.0); PLATELET COUNT (AUTO) 293 K/uL (130-430); RED BLOOD CELL COUNT(AUTO) 3.88 MIL/uL (4.2-6.2); WHITE BLOOD COUNT (AUTO) 8.1 K/uL (4.8-10.8)
[2021-04-29 06:47] LABS: CALCIUM 9.2 mg/dL (8.4-11.0); CREATININE 0.54 mg/dL (0.55-1.30); POTASSIUM 3.4 mmol/L (3.5-5.1)
[2021-04-29 08:48] LABS: C-REACTIVE PROTEIN QUANT 13.5 mg/dL (0-0.5); ERYTHROCYTE SEDIMENTATION RATE 87 MM/HR (0-20)
[2021-04-29] MEDS: FUROSEMIDE 20 MG/2 ML VIAL IVP SCH (08:49)
[2021-04-29] MEDS: PANTOPRAZOLE SODIUM 40 MG/VIAL (PROTONIX) IVP SCH (08:49)
[2021-04-29] MEDS: CHOLECALCIFEROL (VITAMIN D3) 5,000 UNIT TABLET PO SCH (08:49)
[2021-04-29] MEDS: ASCORBIC ACID 500 MG TABLET PO SCH (08:49)
[2021-04-29] MEDS: ENOXAPARIN SODIUM 40 MG/0.4 ML SYRINGE SUBCUT SCH ×2 (08:50→22:30)
[2021-04-29] MEDS: CEFEPIME 1 GM in D5W 50 ML IV SCH ×2 (08:52→22:26)
[2021-04-29] MEDS: THEOPHYLLINE ANHYDROUS 200 MG CAP.ER.24H PO SCH (08:52)
[2021-04-29] MEDS: ALBUTEROL MDI INHALATION 8 GM INH INH SCH ×5 (09:57→23:28)
[2021-04-29] MEDS ORDERED: KCL 40 mEq in 100 mL (PREMIX) 100 ML IV ONE (10:15)
[2021-04-29] MEDS: FLUCONAZOLE 200 mg/ NS 100 ML IV SCH (10:29)
[2021-04-29] MEDS: MORPHINE SULFATE IN 0.9 % NACL 100 ML IV PRN (12:10)
[2021-04-29] MEDS: MIDAZOLAM HCL IN 0.9 % NACL/PF 50 ML IV PRN (12:11)
[2021-04-29] MEDS: metroNIDAZOLE 250 mg/NS 50 ML IV SCH ×2 (16:02→22:25)
[2021-04-30] VITALS (32 sets, daily range): BP systolic 116–149
[2021-04-30] MEDS: PROPOFOL DRIP 100 ML IV PRN ×3 (00:32→21:29)
[2021-04-30] MEDS: ALBUTEROL MDI INHALATION 8 GM INH INH SCH ×5 (03:52→19:30)
[2021-04-30] MEDS: metroNIDAZOLE 250 mg/NS 50 ML IV SCH ×2 (05:51→14:31)
[2021-04-30 06:50] LABS: BASOPHILS % (AUTO) 0.5 % (0.0-2.0); EOSINOPHILS # (AUTO) 0.9 K/uL (0.0-0.4); EOSINOPHILS % (AUTO) 12.2 % (0.0-4.0); HEMOGLOBIN 11.4 g/dL (12.0-16.0); LYMPHOCYTES # (AUTO) 1.6 K/uL (1.0-5.5); LYMPHOCYTES % (AUTO) 21.1 % (20.5-51.5); MEAN CORPUSCULAR HEMOGLOBIN 31 pg (27-31); MEAN CORPUSCULAR HGB CONC 33 % (32-36); MEAN CORPUSCULAR VOLUME 93 fL (79.0-98.0); MONOCYTES % (AUTO) 12.9 % (1.7-9.3); NEUTROPHILS # (AUTO) 4.1 K/uL (1.8-7.7); NEUTROPHILS % (AUTO) 53.3 % (40.0-70.0); PLATELET COUNT (AUTO) 261 K/uL (130-430); RED BLOOD CELL COUNT(AUTO) 3.64 MIL/uL (4.2-6.2); RED CELL DISTRIBUTION WIDTH 17.2 % (9.0-15.0); WHITE BLOOD COUNT (AUTO) 7.7 K/uL (4.8-10.8)
[2021-04-30 06:52] LABS: C-REACTIVE PROTEIN QUANT 8.7 mg/dL (0-0.5); CALCIUM 9.1 mg/dL (8.4-11.0); CREATININE 0.47 mg/dL (0.55-1.30); PHOSPHORUS 3.5 mg/dL (2.7-4.5); POTASSIUM 3.5 mmol/L (3.5-5.1)
[2021-04-30] MEDS: PANTOPRAZOLE SODIUM 40 MG/VIAL (PROTONIX) IVP SCH (08:12)
[2021-04-30] MEDS: CEFEPIME 1 GM in D5W 50 ML IV SCH ×2 (08:13→20:20)
[2021-04-30] MEDS: FUROSEMIDE 20 MG/2 ML VIAL IVP SCH (08:13)
[2021-04-30] MEDS: ASCORBIC ACID 500 MG TABLET PO SCH (08:13)
[2021-04-30] MEDS: CHOLECALCIFEROL (VITAMIN D3) 5,000 UNIT TABLET PO SCH (08:13)
[2021-04-30] MEDS: THEOPHYLLINE ANHYDROUS 200 MG CAP.ER.24H PO SCH (08:13)
[2021-04-30] MEDS: ENOXAPARIN SODIUM 40 MG/0.4 ML SYRINGE SUBCUT SCH (08:14)
[2021-04-30] MEDS: FLUCONAZOLE 200 mg/ NS 100 ML IV SCH (11:18)
[2021-04-30 13:31] LABS: ERYTHROCYTE SEDIMENTATION RATE 81 MM/HR (0-20)
[2021-04-30] MEDS ORDERED: DIPHENHYDRAMINE INJ 50 MG/ML VIAL IVP ONE (15:15)
[2021-04-30 20:44] LABS: BILIRUBIN,URINE 1+ (NEGATIVE); BLOOD, URINE 3+ (NEGATIVE); CLARITY/URINE CLOUDY (CLEAR); COLOR,URINE BROWN (YELLOW); GLUCOSE,URINE NEGATIVE (NEGATIVE); KETONES,URINE TRACE (NEGATIVE); LEUKOCYTE ESTERASE ,URINE TRACE (NEGATIVE); NITRITE, URINE POSITIVE (NEGATIVE); PH,URINE 6.5 (5.0-8.0); PROTEIN URINE 2+ (NEGATIVE)
[2021-04-30 21:27] LABS: RBC,URINE >100 /HPF (0-3)
[2021-04-30 21:28] LABS: BACTERIA,URINE MODERATE /HPF (None Seen); CALCIUM OXALATE CRYSTALS,UR None Seen /HPF (None Seen); CALCIUM PHOSPHATE CRYSTALS,UR None Seen /HPF (None Seen); COARSE GRANULAR CASTS,URINE None Seen /LPF (None Seen); FINE GRANULAR CASTS,URINE None Seen /LPF (None Seen); HYALINE CASTS, URINE None Seen /LPF (None Seen); MUCUS,URINE None Seen /LPF (None Seen); OTHER CASTS, URINE None Seen /LPF (None Seen); OTHER CRYSTALS,URINE None Seen /HPF (None Seen); TRICHOMONAS,URINE None Seen /HPF (None Seen); TRIPLE PHOSPHATE CRYSTAL,UR None Seen /HPF (None Seen); URIC ACID CRYSTALS,URINE None Seen /HPF (None Seen); URINE AMORPHOUS PHOSPHATES None Seen /HPF (None Seen); URINE AMORPHOUS URATE None Seen /HPF (None Seen); WAXY CASTS,URINE None Seen /LPF (None Seen); WBC,URINE 0-3 /HPF (0-3); YEAST,URINE None Seen /HPF (None Seen)
[2021-05-01] VITALS (34 sets, daily range): BP systolic 107–142
[2021-05-01] MEDS: ALBUTEROL MDI INHALATION 8 GM INH INH SCH ×3 (00:23→07:33)
[2021-05-01 06:07] LABS: HEMATOCRIT 32.4 % (36-48); HEMOGLOBIN 11.4 g/dL (12.0-16.0); MEAN CORPUSCULAR HEMOGLOBIN 33 pg (27-31); MEAN CORPUSCULAR HGB CONC 35 % (32-36); MEAN CORPUSCULAR VOLUME 92 fL (79.0-98.0); RED BLOOD CELL COUNT(AUTO) 3.51 MIL/uL (4.2-6.2); WHITE BLOOD COUNT (AUTO) 8.2 K/uL (4.8-10.8)
[2021-05-01 06:20] LABS: ALBUMIN 2.4 g/dL (3.4-4.8); CALCIUM 9.1 mg/dL (8.4-11.0); CREATININE 0.5 mg/dL (0.55-1.30); PHOSPHORUS 3.7 mg/dL (2.7-4.5); POTASSIUM 3.5 mmol/L (3.5-5.1); TOTAL BILIRUBIN 0.3 mg/dL (0.0-1.0)
[2021-05-01] MEDS: MORPHINE SULFATE IN 0.9 % NACL 100 ML IV PRN (07:06)
[2021-05-01] MEDS: CEFEPIME 1 GM in D5W 50 ML IV SCH ×2 (08:16→21:33)
[2021-05-01] MEDS: PANTOPRAZOLE SODIUM 40 MG/VIAL (PROTONIX) IVP SCH (08:17)
[2021-05-01] MEDS: FUROSEMIDE 20 MG/2 ML VIAL IVP SCH (08:17)
[2021-05-01] MEDS: THEOPHYLLINE ANHYDROUS 200 MG CAP.ER.24H PO SCH (08:17)
[2021-05-01] MEDS: PROPOFOL DRIP 100 ML IV PRN (08:20)
[2021-05-01] MEDS: ASCORBIC ACID 500 MG TABLET PO SCH (08:20)
[2021-05-01] MEDS: CHOLECALCIFEROL (VITAMIN D3) 5,000 UNIT TABLET PO SCH (08:21)
[2021-05-01 08:22] LABS: PLATELET COUNT (AUTO) 435 K/uL (130-430)
[2021-05-01 10:15] LABS: C-REACTIVE PROTEIN QUANT 8.6 mg/dL (0-0.5)
[2021-05-01 10:24] LABS: ERYTHROCYTE SEDIMENTATION RATE 80 MM/HR (0-20)
[2021-05-01] MEDS: FLUCONAZOLE 200 mg/ NS 100 ML IV SCH (10:45)
[2021-05-01 11:30] LABS: BAND % (MANUAL) 12 % (0-6); BASOPHILS % (MANUAL) 0 % (0-2); EOSINOPHILS % (MANUAL) 17 % (0-7); LYMPHOCYTES % (MANUAL) 10 % (20-46); MONOCYTES % (MANUAL) 9 % (0-11)
[2021-05-01 14:01] LABS: PROTHROMBIN TIME 10.5 SECS (9.5-12.5)
[2021-05-01] MEDS: VORICONAZOLE 200 MG in NS 100 ML IV SCH (21:30)
[2021-05-01] MEDS: MIDAZOLAM IN NACL,ISO-OSMOT/PF 100 ML IV PRN (23:23)
[2021-05-02] VITALS (35 sets, daily range): BP systolic 107–146
[2021-05-02] MEDS: ALBUTEROL MDI INHALATION 8 GM INH INH SCH ×6 (03:30→22:58)
[2021-05-02 06:37] LABS: BASOPHILS % (AUTO) 0.6 % (0.0-2.0); EOSINOPHILS # (AUTO) 0.9 K/uL (0.0-0.4); EOSINOPHILS % (AUTO) 12.3 % (0.0-4.0); HEMATOCRIT 34.6 % (36-48); HEMOGLOBIN 11.5 g/dL (12.0-16.0); LYMPHOCYTES # (AUTO) 1.2 K/uL (1.0-5.5); LYMPHOCYTES % (AUTO) 17.2 % (20.5-51.5); MEAN CORPUSCULAR HEMOGLOBIN 31 pg (27-31); MEAN CORPUSCULAR HGB CONC 33 % (32-36); MEAN CORPUSCULAR VOLUME 93 fL (79.0-98.0); MONOCYTES # (AUTO) 0.7 K/uL (0.0-1.0); MONOCYTES % (AUTO) 9.3 % (1.7-9.3); NEUTROPHILS # (AUTO) 4.4 K/uL (1.8-7.7); NEUTROPHILS % (AUTO) 60.6 % (40.0-70.0); PLATELET COUNT (AUTO) 277 K/uL (130-430); RED BLOOD CELL COUNT(AUTO) 3.71 MIL/uL (4.2-6.2); RED CELL DISTRIBUTION WIDTH 16.9 % (9.0-15.0); WHITE BLOOD COUNT (AUTO) 7.2 K/uL (4.8-10.8)
[2021-05-02 07:00] LABS: CALCIUM 9.3 mg/dL (8.4-11.0); CREATININE 0.51 mg/dL (0.55-1.30); POTASSIUM 3.1 mmol/L (3.5-5.1)
[2021-05-02] MEDS ORDERED: POTASSIUM CHLORIDE 20 MEQ/PKT PACKET PO ONE (09:15)
[2021-05-02] MEDS: FUROSEMIDE 20 MG/2 ML VIAL IVP SCH (09:30)
[2021-05-02] MEDS: ASCORBIC ACID 500 MG TABLET PO SCH (09:31)
[2021-05-02] MEDS: PANTOPRAZOLE SODIUM 40 MG/VIAL (PROTONIX) IVP SCH (09:31)
[2021-05-02] MEDS: CHOLECALCIFEROL (VITAMIN D3) 5,000 UNIT TABLET PO SCH (09:31)
[2021-05-02] MEDS: THEOPHYLLINE ANHYDROUS 200 MG CAP.ER.24H PO SCH (09:32)
[2021-05-02] MEDS: CEFEPIME 1 GM in D5W 50 ML IV SCH ×2 (09:32→22:09)
[2021-05-02] MEDS: VORICONAZOLE 200 MG in NS 100 ML IV SCH ×2 (09:33→22:09)
[2021-05-02 10:07] LABS: ERYTHROCYTE SEDIMENTATION RATE 83 MM/HR (0-20)
[2021-05-02] MEDS: PROPOFOL DRIP 100 ML IV PRN ×2 (16:28→18:09)
[2021-05-03] VITALS (41 sets, daily range): BP systolic 101–130
[2021-05-03] MEDS: ALBUTEROL MDI INHALATION 8 GM INH INH SCH ×5 (03:33→23:28)
[2021-05-03 06:57] LABS: BASOPHILS # (AUTO) 0.1 K/uL (0.0-0.2); BASOPHILS % (AUTO) 0.8 % (0.0-2.0); EOSINOPHILS # (AUTO) 1.1 K/uL (0.0-0.4); EOSINOPHILS % (AUTO) 12.9 % (0.0-4.0); HEMATOCRIT 35.9 % (36-48); LYMPHOCYTES # (AUTO) 1.3 K/uL (1.0-5.5); LYMPHOCYTES % (AUTO) 15.4 % (20.5-51.5); MEAN CORPUSCULAR HEMOGLOBIN 31 pg (27-31); MEAN CORPUSCULAR HGB CONC 33 % (32-36); MEAN CORPUSCULAR VOLUME 93 fL (79.0-98.0); MONOCYTES # (AUTO) 0.6 K/uL (0.0-1.0); MONOCYTES % (AUTO) 6.9 % (1.7-9.3); NEUTROPHILS # (AUTO) 5.3 K/uL (1.8-7.7); PLATELET COUNT (AUTO) 321 K/uL (130-430); RED BLOOD CELL COUNT(AUTO) 3.86 MIL/uL (4.2-6.2); RED CELL DISTRIBUTION WIDTH 16.4 % (9.0-15.0); WHITE BLOOD COUNT (AUTO) 8.3 K/uL (4.8-10.8)
[2021-05-03] MEDS: PROPOFOL DRIP 100 ML IV PRN ×4 (07:32→20:55)
[2021-05-03] MEDS: MIDAZOLAM IN NACL,ISO-OSMOT/PF 100 ML IV PRN (07:41)
[2021-05-03 07:57] LABS: ALBUMIN 2.6 g/dL (3.4-4.8); CALCIUM 9.6 mg/dL (8.4-11.0); CREATININE 0.46 mg/dL (0.55-1.30); POTASSIUM 4.3 mmol/L (3.5-5.1); TOTAL BILIRUBIN 0.4 mg/dL (0.0-1.0)
[2021-05-03] MEDS: VORICONAZOLE 200 MG in NS 100 ML IV SCH ×2 (08:21→22:15)
[2021-05-03] MEDS: PANTOPRAZOLE SODIUM 40 MG/VIAL (PROTONIX) IVP SCH (08:22)
[2021-05-03] MEDS: FUROSEMIDE 20 MG/2 ML VIAL IVP SCH (08:22)
[2021-05-03 08:41] LABS: ERYTHROCYTE SEDIMENTATION RATE 84 MM/HR (0-20)
[2021-05-03] MEDS: ASCORBIC ACID 500 MG TABLET PO SCH (09:00)
[2021-05-03] MEDS: CHOLECALCIFEROL (VITAMIN D3) 5,000 UNIT TABLET PO SCH (09:00)
[2021-05-03] MEDS: THEOPHYLLINE ANHYDROUS 200 MG CAP.ER.24H PO SCH (09:00)
[2021-05-03] MEDS: BALSAM PERU/CASTOR OIL 60 GM OINT...G. TP SCH ×2 (09:00→15:46)
[2021-05-03] MEDS: CEFEPIME 1 GM in D5W 50 ML IV SCH ×2 (09:44→20:53)
[2021-05-04] VITALS (30 sets, daily range): BP systolic 98–117
[2021-05-04] MEDS: MORPHINE SULFATE IN 0.9 % NACL 100 ML IV PRN (00:05)
[2021-05-04] MEDS: PROPOFOL DRIP 100 ML IV PRN ×5 (02:21→22:53)
[2021-05-04] MEDS: ALBUTEROL MDI INHALATION 8 GM INH INH SCH ×5 (04:49→20:02)
[2021-05-04 06:34] LABS: CALCIUM 9.3 mg/dL (8.4-11.0); CREATININE 0.46 mg/dL (0.55-1.30); POTASSIUM 4.4 mmol/L (3.5-5.1)
[2021-05-04 06:59] LABS: BASOPHILS % (AUTO) 0.3 % (0.0-2.0); EOSINOPHILS # (AUTO) 1.2 K/uL (0.0-0.4); EOSINOPHILS % (AUTO) 11.5 % (0.0-4.0); HEMATOCRIT 35.9 % (36-48); LYMPHOCYTES # (AUTO) 1.3 K/uL (1.0-5.5); LYMPHOCYTES % (AUTO) 12.7 % (20.5-51.5); MEAN CORPUSCULAR HEMOGLOBIN 31 pg (27-31); MEAN CORPUSCULAR HGB CONC 33 % (32-36); MEAN CORPUSCULAR VOLUME 92 fL (79.0-98.0); MONOCYTES # (AUTO) 0.6 K/uL (0.0-1.0); MONOCYTES % (AUTO) 6.2 % (1.7-9.3); NEUTROPHILS % (AUTO) 69.3 % (40.0-70.0); PLATELET COUNT (AUTO) 292 K/uL (130-430); RED BLOOD CELL COUNT(AUTO) 3.89 MIL/uL (4.2-6.2); RED CELL DISTRIBUTION WIDTH 16.6 % (9.0-15.0); WHITE BLOOD COUNT (AUTO) 10.1 K/uL (4.8-10.8)
[2021-05-04] MEDS: CEFEPIME 1 GM in D5W 50 ML IV SCH ×2 (08:09→20:18)
[2021-05-04] MEDS: FUROSEMIDE 20 MG/2 ML VIAL IVP SCH (08:18)
[2021-05-04 08:22] LABS: ERYTHROCYTE SEDIMENTATION RATE 74 MM/HR (0-20)
[2021-05-04] MEDS: PANTOPRAZOLE SODIUM 40 MG/VIAL (PROTONIX) IVP SCH (08:23)
[2021-05-04] MEDS: ASCORBIC ACID 500 MG TABLET PO SCH (08:26)
[2021-05-04] MEDS: CHOLECALCIFEROL (VITAMIN D3) 5,000 UNIT TABLET PO SCH (08:26)
[2021-05-04] MEDS: BALSAM PERU/CASTOR OIL 60 GM OINT...G. TP SCH (08:44)
[2021-05-04] MEDS: THEOPHYLLINE ANHYDROUS 200 MG CAP.ER.24H PO SCH (09:00)
[2021-05-04] MEDS: VORICONAZOLE 200 MG in NS 100 ML IV SCH ×2 (09:18→21:32)
[2021-05-04] MEDS ORDERED: POLYETHYLENE GLYCOL 3350, 17 GM/ POWD.PACK PO ONE (12:00)
[2021-05-04] MEDS: MIDAZOLAM IN NACL,ISO-OSMOT/PF 100 ML IV PRN (14:24)
[2021-05-04] MEDS: POLYETHYLENE GLYCOL 3350, 17 GM/ POWD.PACK PO SCH (20:19)
[2021-05-04] MEDS: ACETAMINOPHEN 325 MG TABLET PO PRN (20:19)
[2021-05-05] VITALS (33 sets, daily range): BP systolic 9–126
[2021-05-05] MEDS: ALBUTEROL MDI INHALATION 8 GM INH INH SCH ×7 (00:03→22:45)
[2021-05-05] MEDS: ACETAMINOPHEN 325 MG TABLET PO PRN ×3 (00:22→08:54)
[2021-05-05] MEDS: PROPOFOL DRIP 100 ML IV PRN ×4 (04:47→16:52)
[2021-05-05 06:45] LABS: BASOPHILS % (AUTO) 0.3 % (0.0-2.0); EOSINOPHILS # (AUTO) 1.2 K/uL (0.0-0.4); EOSINOPHILS % (AUTO) 10.8 % (0.0-4.0); HEMATOCRIT 33.3 % (36-48); HEMOGLOBIN 11.2 g/dL (12.0-16.0); LYMPHOCYTES # (AUTO) 1.5 K/uL (1.0-5.5); LYMPHOCYTES % (AUTO) 13.4 % (20.5-51.5); MEAN CORPUSCULAR HEMOGLOBIN 31 pg (27-31); MEAN CORPUSCULAR HGB CONC 34 % (32-36); MEAN CORPUSCULAR VOLUME 93 fL (79.0-98.0); MONOCYTES # (AUTO) 0.6 K/uL (0.0-1.0); MONOCYTES % (AUTO) 5.5 % (1.7-9.3); NEUTROPHILS # (AUTO) 7.7 K/uL (1.8-7.7); PLATELET COUNT (AUTO) 273 K/uL (130-430); RED BLOOD CELL COUNT(AUTO) 3.58 MIL/uL (4.2-6.2); RED CELL DISTRIBUTION WIDTH 16.2 % (9.0-15.0)
[2021-05-05] MEDS: CEFEPIME 1 GM in D5W 50 ML IV SCH ×2 (07:59→22:05)
[2021-05-05] MEDS: CHOLECALCIFEROL (VITAMIN D3) 5,000 UNIT TABLET PO SCH (08:08)
[2021-05-05] MEDS: ASCORBIC ACID 500 MG TABLET PO SCH (08:09)
[2021-05-05] MEDS: POLYETHYLENE GLYCOL 3350, 17 GM/ POWD.PACK PO SCH ×2 (08:09→21:00)
[2021-05-05] MEDS: PANTOPRAZOLE SODIUM 40 MG/VIAL (PROTONIX) IVP SCH (08:10)
[2021-05-05] MEDS: FUROSEMIDE 20 MG/2 ML VIAL IVP SCH (08:24)
[2021-05-05 08:31] LABS: ALBUMIN 2.1 g/dL (3.4-4.8); CALCIUM 9.1 mg/dL (8.4-11.0); CREATININE 0.51 mg/dL (0.55-1.30); TOTAL BILIRUBIN 0.5 mg/dL (0.0-1.0)
[2021-05-05] MEDS: VORICONAZOLE 200 MG in NS 100 ML IV SCH ×2 (08:43→22:05)
[2021-05-05 08:51] LABS: ERYTHROCYTE SEDIMENTATION RATE 86 MM/HR (0-20)
[2021-05-05 10:13] LABS: POTASSIUM 3.5 mmol/L (3.5-5.1)
[2021-05-05 10:14] LABS: C-REACTIVE PROTEIN QUANT 21.4 mg/dL (0-0.5)
[2021-05-05] MEDS: MORPHINE SULFATE IN 0.9 % NACL 100 ML IV PRN (10:25)
[2021-05-05] MEDS: BALSAM PERU/CASTOR OIL 60 GM OINT...G. TP SCH (10:46)
[2021-05-05] MEDS ORDERED: THEOPHYLLINE ANHYDROUS 80 MG/15 ML UDC PO ONE (13:00)
[2021-05-06] VITALS (31 sets, daily range): BP systolic 104–133
[2021-05-06] MEDS: MIDAZOLAM IN NACL,ISO-OSMOT/PF 100 ML IV PRN (01:11)
[2021-05-06] MEDS: PROPOFOL DRIP 100 ML IV PRN ×2 (01:12→09:26)
[2021-05-06] MEDS: ALBUTEROL MDI INHALATION 8 GM INH INH SCH ×6 (04:19→23:35)
[2021-05-06 07:07] LABS: CALCIUM 9.4 mg/dL (8.4-11.0); CREATININE 0.54 mg/dL (0.55-1.30); POTASSIUM 3.8 mmol/L (3.5-5.1)
[2021-05-06 07:08] LABS: BASOPHILS % (AUTO) 0.3 % (0.0-2.0); EOSINOPHILS # (AUTO) 1.4 K/uL (0.0-0.4); EOSINOPHILS % (AUTO) 11.5 % (0.0-4.0); HEMATOCRIT 33.1 % (36-48); LYMPHOCYTES # (AUTO) 1.4 K/uL (1.0-5.5); LYMPHOCYTES % (AUTO) 11.2 % (20.5-51.5); MEAN CORPUSCULAR HEMOGLOBIN 31 pg (27-31); MEAN CORPUSCULAR HGB CONC 33 % (32-36); MEAN CORPUSCULAR VOLUME 93 fL (79.0-98.0); MONOCYTES # (AUTO) 0.7 K/uL (0.0-1.0); MONOCYTES % (AUTO) 6.2 % (1.7-9.3); NEUTROPHILS # (AUTO) 8.5 K/uL (1.8-7.7); NEUTROPHILS % (AUTO) 70.8 % (40.0-70.0); PLATELET COUNT (AUTO) 309 K/uL (130-430); RED BLOOD CELL COUNT(AUTO) 3.57 MIL/uL (4.2-6.2); RED CELL DISTRIBUTION WIDTH 16.5 % (9.0-15.0)
[2021-05-06] MEDS: CEFEPIME 1 GM in D5W 50 ML IV SCH ×2 (08:53→21:00)
[2021-05-06 08:54] LABS: C-REACTIVE PROTEIN QUANT 28.7 mg/dL (0-0.5)
[2021-05-06] MEDS: FUROSEMIDE 20 MG/2 ML VIAL IVP SCH (08:54)
[2021-05-06] MEDS: VORICONAZOLE 200 MG in NS 100 ML IV SCH ×2 (08:54→20:22)
[2021-05-06] MEDS: CHOLECALCIFEROL (VITAMIN D3) 5,000 UNIT TABLET PO SCH (08:55)
[2021-05-06] MEDS: ASCORBIC ACID 500 MG TABLET PO SCH (08:55)
[2021-05-06] MEDS: PANTOPRAZOLE SODIUM 40 MG/VIAL (PROTONIX) IVP SCH (08:55)
[2021-05-06] MEDS: BALSAM PERU/CASTOR OIL 60 GM OINT...G. TP SCH (08:56)
[2021-05-06] MEDS ORDERED: THEOPHYLLINE ANHYDROUS 80 MG/15 ML UDC PO SCH (09:00)
[2021-05-06 09:31] LABS: ERYTHROCYTE SEDIMENTATION RATE 87 MM/HR (0-20)
[2021-05-06] MEDS: ACETAMINOPHEN 325 MG TABLET PO PRN ×3 (12:46→21:00)
[2021-05-06 16:34] LABS: INR 1.1 (0.8-1.2); PROTHROMBIN TIME 11.2 SECS (9.5-12.5)
[2021-05-06] MEDS: MORPHINE SULFATE IN 0.9 % NACL 100 ML IV PRN (20:24)
[2021-05-07] VITALS (34 sets, daily range): BP systolic 103–134
[2021-05-07] MEDS: ACETAMINOPHEN 325 MG TABLET PO PRN (03:12)
[2021-05-07] MEDS: PROPOFOL DRIP 100 ML IV PRN (03:15)
[2021-05-07] MEDS: ALBUTEROL MDI INHALATION 8 GM INH INH SCH ×4 (03:45→15:38)
[2021-05-07 06:48] LABS: BASOPHILS # (AUTO) 0.1 K/uL (0.0-0.2); BASOPHILS % (AUTO) 0.5 % (0.0-2.0); EOSINOPHILS # (AUTO) 1.6 K/uL (0.0-0.4); EOSINOPHILS % (AUTO) 13.7 % (0.0-4.0); HEMATOCRIT 31.6 % (36-48); HEMOGLOBIN 10.4 g/dL (12.0-16.0); LYMPHOCYTES # (AUTO) 1.5 K/uL (1.0-5.5); LYMPHOCYTES % (AUTO) 12.5 % (20.5-51.5); MEAN CORPUSCULAR HEMOGLOBIN 31 pg (27-31); MEAN CORPUSCULAR HGB CONC 33 % (32-36); MEAN CORPUSCULAR VOLUME 93 fL (79.0-98.0); MONOCYTES # (AUTO) 0.8 K/uL (0.0-1.0); MONOCYTES % (AUTO) 6.7 % (1.7-9.3); NEUTROPHILS # (AUTO) 7.8 K/uL (1.8-7.7); NEUTROPHILS % (AUTO) 66.6 % (40.0-70.0); PLATELET COUNT (AUTO) 363 K/uL (130-430); RED CELL DISTRIBUTION WIDTH 16.5 % (9.0-15.0); WHITE BLOOD COUNT (AUTO) 11.7 K/uL (4.8-10.8)
[2021-05-07 07:08] LABS: CALCIUM 9.3 mg/dL (8.4-11.0); CREATININE 0.54 mg/dL (0.55-1.30); POTASSIUM 3.1 mmol/L (3.5-5.1)
[2021-05-07] MEDS: VORICONAZOLE 200 MG in NS 100 ML IV SCH ×2 (09:00→22:11)
[2021-05-07 09:18] LABS: ERYTHROCYTE SEDIMENTATION RATE 103 MM/HR (0-20)
[2021-05-07 10:15] LABS: C-REACTIVE PROTEIN QUANT 31.1 mg/dL (0-0.5)
[2021-05-07] MEDS: CHOLECALCIFEROL (VITAMIN D3) 5,000 UNIT TABLET PO SCH (10:18)
[2021-05-07] MEDS: PANTOPRAZOLE SODIUM 40 MG/VIAL (PROTONIX) IVP SCH (10:19)
[2021-05-07] MEDS: ASCORBIC ACID 500 MG TABLET PO SCH (10:19)
[2021-05-07] MEDS: FUROSEMIDE 20 MG/2 ML VIAL IVP SCH (10:28)
[2021-05-07] MEDS: BALSAM PERU/CASTOR OIL 60 GM OINT...G. TP SCH (10:31)
[2021-05-07] MEDS: CEFEPIME 1 GM in D5W 50 ML IV SCH (10:32)
[2021-05-07] MEDS: PIPERACILLIN/TAZO 4.5GM/DEX-IS 100 ML IV SCH ×2 (14:44→22:53)
[2021-05-07] MEDS: ONDANSETRON HCL 4 MG/2 ML VIAL IVP PRN (23:04)
[2021-05-08] VITALS (35 sets, daily range): BP systolic 110–131
[2021-05-08] MEDS: ALBUTEROL MDI INHALATION 8 GM INH INH SCH ×5 (02:03→16:05)
[2021-05-08] MEDS: ACETAMINOPHEN 325 MG TABLET PO PRN ×3 (03:57→23:23)
[2021-05-08] MEDS: ONDANSETRON HCL 4 MG/2 ML VIAL IVP PRN (03:58)
[2021-05-08] MEDS: PIPERACILLIN/TAZO 4.5GM/DEX-IS 100 ML IV SCH ×3 (06:25→21:09)
[2021-05-08 06:46] LABS: BASOPHILS % (AUTO) 0.3 % (0.0-2.0); EOSINOPHILS # (AUTO) 1.2 K/uL (0.0-0.4); EOSINOPHILS % (AUTO) 9.9 % (0.0-4.0); HEMATOCRIT 30.5 % (36-48); HEMOGLOBIN 10.2 g/dL (12.0-16.0); LYMPHOCYTES % (AUTO) 8.6 % (20.5-51.5); MEAN CORPUSCULAR HEMOGLOBIN 30 pg (27-31); MEAN CORPUSCULAR HGB CONC 33 % (32-36); MEAN CORPUSCULAR VOLUME 91 fL (79.0-98.0); MONOCYTES # (AUTO) 0.6 K/uL (0.0-1.0); NEUTROPHILS # (AUTO) 8.9 K/uL (1.8-7.7); NEUTROPHILS % (AUTO) 76.2 % (40.0-70.0); PLATELET COUNT (AUTO) 417 K/uL (130-430); RED BLOOD CELL COUNT(AUTO) 3.35 MIL/uL (4.2-6.2); RED CELL DISTRIBUTION WIDTH 16.1 % (9.0-15.0); WHITE BLOOD COUNT (AUTO) 11.7 K/uL (4.8-10.8)
[2021-05-08 07:33] LABS: ALBUMIN 2.1 g/dL (3.4-4.8); CALCIUM 9.1 mg/dL (8.4-11.0); CREATININE 0.48 mg/dL (0.55-1.30); POTASSIUM 3.3 mmol/L (3.5-5.1); TOTAL BILIRUBIN 0.3 mg/dL (0.0-1.0)
[2021-05-08] MEDS: PANTOPRAZOLE SODIUM 40 MG/VIAL (PROTONIX) IVP SCH (09:38)
[2021-05-08] MEDS: CHOLECALCIFEROL (VITAMIN D3) 5,000 UNIT TABLET PO SCH (09:39)
[2021-05-08] MEDS: VORICONAZOLE 200 MG in NS 100 ML IV SCH ×2 (09:39→21:09)
[2021-05-08] MEDS: ASCORBIC ACID 500 MG TABLET PO SCH (09:39)
[2021-05-08] MEDS: BALSAM PERU/CASTOR OIL 60 GM OINT...G. TP SCH (09:42)
[2021-05-08] MEDS ORDERED: FUROSEMIDE 40 MG/4 ML VIAL IVP ONE (09:45)
[2021-05-08] MEDS ORDERED: FUROSEMIDE 20 MG/2 ML VIAL IVP ONE (09:45)
[2021-05-08] MEDS ORDERED: ENOXAPARIN SODIUM 40 MG/0.4 ML SYRINGE SUBCUT ONE (10:00)
[2021-05-08] MEDS ORDERED: *LOVENOX 1MG/KG Q12H/PHARMACY XX ONE (16:45)
[2021-05-08] MEDS ORDERED: KCL 20 mEq in 100 mL (PREMIX) 100 ML IV ONE (17:45)
[2021-05-08] MEDS: FUROSEMIDE 40 MG/4 ML VIAL IVP SCH (21:08)
[2021-05-08] MEDS: ENOXAPARIN SODIUM 100 MG/ML SYRINGE SUBCUT SCH (21:08)
[2021-05-09] VITALS (29 sets, daily range): BP systolic 112–136
[2021-05-09] MEDS: ALBUTEROL MDI INHALATION 8 GM INH INH SCH ×4 (03:36→12:13)
[2021-05-09] MEDS: PIPERACILLIN/TAZO 4.5GM/DEX-IS 100 ML IV SCH ×3 (05:40→21:16)
[2021-05-09 06:41] LABS: BASOPHILS # (AUTO) 0.1 K/uL (0.0-0.2); BASOPHILS % (AUTO) 1.2 % (0.0-2.0); EOSINOPHILS # (AUTO) 0.7 K/uL (0.0-0.4); EOSINOPHILS % (AUTO) 6.7 % (0.0-4.0); HEMATOCRIT 29.4 % (36-48); LYMPHOCYTES # (AUTO) 1.7 K/uL (1.0-5.5); LYMPHOCYTES % (AUTO) 16.5 % (20.5-51.5); MEAN CORPUSCULAR HEMOGLOBIN 31 pg (27-31); MEAN CORPUSCULAR HGB CONC 34 % (32-36); MEAN CORPUSCULAR VOLUME 92 fL (79.0-98.0); MONOCYTES # (AUTO) 0.7 K/uL (0.0-1.0); MONOCYTES % (AUTO) 6.6 % (1.7-9.3); PLATELET COUNT (AUTO) 529 K/uL (130-430); RED CELL DISTRIBUTION WIDTH 16.2 % (9.0-15.0); WHITE BLOOD COUNT (AUTO) 10.1 K/uL (4.8-10.8)
[2021-05-09 07:52] LABS: CALCIUM 9.3 mg/dL (8.4-11.0); CREATININE 0.6 mg/dL (0.55-1.30)
[2021-05-09] MEDS ORDERED: ENOXAPARIN SODIUM 40 MG/0.4 ML SYRINGE SUBCUT SCH (09:00)
[2021-05-09 09:18] LABS: ERYTHROCYTE SEDIMENTATION RATE 107 MM/HR (0-20)
[2021-05-09] MEDS: PANTOPRAZOLE SODIUM 40 MG/VIAL (PROTONIX) IVP SCH (09:25)
[2021-05-09] MEDS: ASCORBIC ACID 500 MG TABLET PO SCH (09:26)
[2021-05-09] MEDS: CHOLECALCIFEROL (VITAMIN D3) 5,000 UNIT TABLET PO SCH (09:26)
[2021-05-09] MEDS: ACETAMINOPHEN 325 MG TABLET PO PRN (09:29)
[2021-05-09] MEDS: VORICONAZOLE 200 MG in NS 100 ML IV SCH (09:33)
[2021-05-09] MEDS: BALSAM PERU/CASTOR OIL 60 GM OINT...G. TP SCH (09:35)
[2021-05-09] MEDS: ENOXAPARIN SODIUM 100 MG/ML SYRINGE SUBCUT SCH ×2 (09:35→21:17)
[2021-05-09] MEDS: FUROSEMIDE 40 MG/4 ML VIAL IVP SCH ×2 (09:38→21:15)
[2021-05-09 10:50] LABS: C-REACTIVE PROTEIN QUANT 20.2 mg/dL (0-0.5)
[2021-05-09] MEDS ORDERED: COMMUNICATION ORDER XX ONE (12:30)
[2021-05-09] MEDS ORDERED: GASTROGRAFIN 120 ML ONE (16:47)
[2021-05-09] MEDS ORDERED: KCL 40 mEq in 100 mL (PREMIX) 100 ML IV ONE (17:30)
[2021-05-10] VITALS (28 sets, daily range): BP systolic 108–135
[2021-05-10] MEDS: ALBUTEROL MDI INHALATION 8 GM INH INH SCH ×6 (05:17→19:50)
[2021-05-10] MEDS: PIPERACILLIN/TAZO 4.5GM/DEX-IS 100 ML IV SCH ×3 (06:20→21:42)
[2021-05-10 06:28] LABS: BASOPHILS # (AUTO) 0.2 K/uL (0.0-0.2); BASOPHILS % (AUTO) 1.5 % (0.0-2.0); EOSINOPHILS # (AUTO) 1.3 K/uL (0.0-0.4); HEMOGLOBIN 10.5 g/dL (12.0-16.0); LYMPHOCYTES % (AUTO) 18.7 % (20.5-51.5); MEAN CORPUSCULAR HEMOGLOBIN 30 pg (27-31); MEAN CORPUSCULAR HGB CONC 33 % (32-36); MEAN CORPUSCULAR VOLUME 92 fL (79.0-98.0); MONOCYTES # (AUTO) 0.8 K/uL (0.0-1.0); MONOCYTES % (AUTO) 7.8 % (1.7-9.3); NEUTROPHILS # (AUTO) 6.4 K/uL (1.8-7.7); PLATELET COUNT (AUTO) 551 K/uL (130-430); RED BLOOD CELL COUNT(AUTO) 3.48 MIL/uL (4.2-6.2); RED CELL DISTRIBUTION WIDTH 16.4 % (9.0-15.0); WHITE BLOOD COUNT (AUTO) 10.7 K/uL (4.8-10.8)
[2021-05-10 06:49] LABS: ALBUMIN 2.4 g/dL (3.4-4.8); BILIRUBIN,DIRECT 0.3 mg/dL (0.0-0.3); CALCIUM 9.4 mg/dL (8.4-11.0); CREATININE 0.53 mg/dL (0.55-1.30); TOTAL BILIRUBIN 0.4 mg/dL (0.0-1.0)
[2021-05-10 08:09] LABS: ERYTHROCYTE SEDIMENTATION RATE 104 MM/HR (0-20)
[2021-05-10 08:18] LABS: POTASSIUM 2.7 mmol/L (3.5-5.1)
[2021-05-10] MEDS ORDERED: GASTROGRAFIN 120 ML ONE (08:49)
[2021-05-10] MEDS: BALSAM PERU/CASTOR OIL 60 GM OINT...G. TP SCH (09:00)
[2021-05-10] MEDS: CHOLECALCIFEROL (VITAMIN D3) 5,000 UNIT TABLET PO SCH (10:28)
[2021-05-10] MEDS: FUROSEMIDE 40 MG/4 ML VIAL IVP SCH (10:28)
[2021-05-10] MEDS: PANTOPRAZOLE SODIUM 40 MG/VIAL (PROTONIX) IVP SCH (10:28)
[2021-05-10] MEDS: ASCORBIC ACID 500 MG TABLET PO SCH (10:28)
[2021-05-10] MEDS: ENOXAPARIN SODIUM 100 MG/ML SYRINGE SUBCUT SCH ×2 (10:32→21:45)
[2021-05-10] MEDS ORDERED: POTASSIUM CHLORIDE 40 MEQ in NS 250 ML IV ONE (12:00)
[2021-05-10] MEDS ORDERED: VANCOMYCIN HCL 1 GM/NS PREMIX 250 ML IV ONE (18:00)
[2021-05-11] MEDS: ALBUTEROL MDI INHALATION 8 GM INH INH SCH ×6 (00:17→20:55)
[2021-05-11 03:13] VITALS: BP_SYST 128
[2021-05-11] MEDS: ACETAMINOPHEN 325 MG TABLET PO PRN (03:54)
[2021-05-11] MEDS: PIPERACILLIN/TAZO 4.5GM/DEX-IS 100 ML IV SCH ×3 (06:26→21:02)
[2021-05-11 06:53] LABS: BASOPHILS # (AUTO) 0.2 K/uL (0.0-0.2); BASOPHILS % (AUTO) 1.7 % (0.0-2.0); EOSINOPHILS # (AUTO) 1.8 K/uL (0.0-0.4); EOSINOPHILS % (AUTO) 17.5 % (0.0-4.0); HEMOGLOBIN 11.4 g/dL (12.0-16.0); LYMPHOCYTES # (AUTO) 1.5 K/uL (1.0-5.5); LYMPHOCYTES % (AUTO) 14.4 % (20.5-51.5); MEAN CORPUSCULAR HEMOGLOBIN 30 pg (27-31); MEAN CORPUSCULAR HGB CONC 33 % (32-36); MEAN CORPUSCULAR VOLUME 92 fL (79.0-98.0); MONOCYTES # (AUTO) 0.7 K/uL (0.0-1.0); MONOCYTES % (AUTO) 7.3 % (1.7-9.3); NEUTROPHILS % (AUTO) 59.1 % (40.0-70.0); PLATELET COUNT (AUTO) 577 K/uL (130-430); RED BLOOD CELL COUNT(AUTO) 3.79 MIL/uL (4.2-6.2); RED CELL DISTRIBUTION WIDTH 16.7 % (9.0-15.0); WHITE BLOOD COUNT (AUTO) 10.1 K/uL (4.8-10.8)
[2021-05-11 08:00] VITALS: BP_SYST 122
[2021-05-11 08:03] LABS: C-REACTIVE PROTEIN QUANT 6.9 mg/dL (0-0.5); CALCIUM 9.7 mg/dL (8.4-11.0); CREATININE 0.62 mg/dL (0.55-1.30)
[2021-05-11] MEDS: ASCORBIC ACID 500 MG TABLET PO SCH (08:05)
[2021-05-11] MEDS: PANTOPRAZOLE SODIUM 40 MG/VIAL (PROTONIX) IVP SCH (08:05)
[2021-05-11] MEDS: FUROSEMIDE 20 MG/2 ML VIAL IVP SCH (08:06)
[2021-05-11] MEDS: ENOXAPARIN SODIUM 100 MG/ML SYRINGE SUBCUT SCH ×2 (08:06→21:01)
[2021-05-11] MEDS: CHOLECALCIFEROL (VITAMIN D3) 5,000 UNIT TABLET PO SCH (08:16)
[2021-05-11 08:38] LABS: POTASSIUM 2.7 mmol/L (3.5-5.1)
[2021-05-11] MEDS ORDERED: POTASSIUM CHLORIDE 40 MEQ in NS 250 ML IV ONE (09:00)
[2021-05-11] MEDS: POTASSIUM CHLORIDE 20 MEQ/PKT PACKET GT SCH ×2 (09:09→20:59)
[2021-05-11] MEDS: BALSAM PERU/CASTOR OIL 60 GM OINT...G. TP SCH (10:00)
[2021-05-11 10:51] LABS: ERYTHROCYTE SEDIMENTATION RATE 93 MM/HR (0-20)
[2021-05-11 12:01] VITALS: BP_SYST 125
[2021-05-11] MEDS: ACETAMINOPHEN 650 MG/20.3 ML UDC GT PRN (12:20)
[2021-05-11 16:09] VITALS: BP_SYST 156
[2021-05-11 20:19] VITALS: BP_SYST 154
[2021-05-11 20:20] VITALS: BP_SYST 120
[2021-05-12 02:09] VITALS: BP_SYST 123
[2021-05-12] MEDS: ACETAMINOPHEN 650 MG/20.3 ML UDC GT PRN (03:52)
[2021-05-12 04:09] VITALS: BP_SYST 123
[2021-05-12] MEDS ORDERED: D5/0.45 NS 1,000 ML IV SCH (05:15)
[2021-05-12] MEDS: D5/0.45 NS 1,000 ML IV SCH ×2 (06:29→15:36)
[2021-05-12] MEDS: PIPERACILLIN/TAZO 4.5GM/DEX-IS 100 ML IV SCH ×3 (06:30→21:50)
[2021-05-12 07:00] VITALS: BP_SYST 119
[2021-05-12 07:04] LABS: BASOPHILS # (AUTO) 0.1 K/uL (0.0-0.2); BASOPHILS % (AUTO) 1.1 % (0.0-2.0); EOSINOPHILS # (AUTO) 1.2 K/uL (0.0-0.4); EOSINOPHILS % (AUTO) 13.9 % (0.0-4.0); HEMATOCRIT 33.6 % (36-48); HEMOGLOBIN 10.9 g/dL (12.0-16.0); LYMPHOCYTES # (AUTO) 1.6 K/uL (1.0-5.5); LYMPHOCYTES % (AUTO) 19.4 % (20.5-51.5); MEAN CORPUSCULAR HEMOGLOBIN 31 pg (27-31); MEAN CORPUSCULAR HGB CONC 32 % (32-36); MEAN CORPUSCULAR VOLUME 95 fL (79.0-98.0); MONOCYTES # (AUTO) 0.5 K/uL (0.0-1.0); MONOCYTES % (AUTO) 6.3 % (1.7-9.3); NEUTROPHILS % (AUTO) 59.3 % (40.0-70.0); PLATELET COUNT (AUTO) 528 K/uL (130-430); RED BLOOD CELL COUNT(AUTO) 3.56 MIL/uL (4.2-6.2); RED CELL DISTRIBUTION WIDTH 17.2 % (9.0-15.0); WHITE BLOOD COUNT (AUTO) 8.5 K/uL (4.8-10.8)
[2021-05-12 07:41] LABS: ALBUMIN 2.5 g/dL (3.4-4.8); C-REACTIVE PROTEIN QUANT 4.2 mg/dL (0-0.5); CALCIUM 9.4 mg/dL (8.4-11.0); CREATININE 0.69 mg/dL (0.55-1.30); PHOSPHORUS 3.8 mg/dL (2.7-4.5); POTASSIUM 3.5 mmol/L (3.5-5.1); TOTAL BILIRUBIN 0.6 mg/dL (0.0-1.0)
[2021-05-12] MEDS: ALBUTEROL MDI INHALATION 8 GM INH INH SCH ×4 (07:52→19:56)
[2021-05-12] MEDS: BALSAM PERU/CASTOR OIL 60 GM OINT...G. TP SCH (09:00)
[2021-05-12] MEDS: CHOLECALCIFEROL (VITAMIN D3) 5,000 UNIT TABLET PO SCH (09:00)
[2021-05-12] MEDS: FUROSEMIDE 20 MG/2 ML VIAL IVP SCH (10:51)
[2021-05-12] MEDS: POTASSIUM CHLORIDE 20 MEQ/PKT PACKET GT SCH ×2 (10:52→21:49)
[2021-05-12] MEDS: ASCORBIC ACID 500 MG TABLET PO SCH (10:52)
[2021-05-12] MEDS: PANTOPRAZOLE SODIUM 40 MG/VIAL (PROTONIX) IVP SCH (10:53)
[2021-05-12] MEDS: ENOXAPARIN SODIUM 100 MG/ML SYRINGE SUBCUT SCH ×2 (10:59→21:52)
[2021-05-12 11:49] LABS: ERYTHROCYTE SEDIMENTATION RATE 88 MM/HR (0-20)
[2021-05-12 12:00] VITALS: BP_SYST 134
[2021-05-12 16:00] VITALS: BP_SYST 132
[2021-05-12 19:40] VITALS: BP_SYST 123
[2021-05-13] VITALS: BP_SYST 119
[2021-05-13] MEDS: D5/0.45 NS 1,000 ML IV SCH (00:50)
[2021-05-13] MEDS: ALBUTEROL MDI INHALATION 8 GM INH INH SCH ×7 (01:00→20:11)
[2021-05-13] MEDS: PIPERACILLIN/TAZO 4.5GM/DEX-IS 100 ML IV SCH ×3 (05:15→21:49)
[2021-05-13 07:00] VITALS: BP_SYST 114
[2021-05-13] MEDS: BALSAM PERU/CASTOR OIL 60 GM OINT...G. TP SCH (09:00)
[2021-05-13] MEDS: POTASSIUM CHLORIDE 20 MEQ/PKT PACKET GT SCH ×2 (10:46→21:48)
[2021-05-13] MEDS: ASCORBIC ACID 500 MG TABLET PO SCH (10:46)
[2021-05-13] MEDS: PANTOPRAZOLE SODIUM 40 MG/VIAL (PROTONIX) IVP SCH (10:48)
[2021-05-13] MEDS: FUROSEMIDE 20 MG/2 ML VIAL IVP SCH (10:48)
[2021-05-13 12:00] VITALS: BP_SYST 141
[2021-05-13] MEDS: NORMAL SALINE 5 ML DISP.SYRIN IVF SCH ×2 (14:00→21:49)
[2021-05-13] MEDS: ENOXAPARIN SODIUM 100 MG/ML SYRINGE SUBCUT SCH ×2 (14:45→21:51)
[2021-05-13] MEDS: CHOLECALCIFEROL (VITAMIN D3) 5,000 UNIT TABLET PO SCH (14:46)
[2021-05-13 16:30] VITALS: BP_SYST 132
[2021-05-13 20:00] VITALS: BP_SYST 116
[2021-05-14 00:43] VITALS: BP_SYST 117
[2021-05-14] MEDS: ALBUTEROL MDI INHALATION 8 GM INH INH SCH ×5 (03:12→20:55)
[2021-05-14] MEDS: NORMAL SALINE 5 ML DISP.SYRIN IVF SCH ×2 (05:34→14:12)
[2021-05-14 07:54] LABS: BASOPHILS # (AUTO) 0.1 K/uL (0.0-0.2); BASOPHILS % (AUTO) 0.9 % (0.0-2.0); EOSINOPHILS # (AUTO) 1.2 K/uL (0.0-0.4); EOSINOPHILS % (AUTO) 13.2 % (0.0-4.0); HEMATOCRIT 32.5 % (36-48); HEMOGLOBIN 10.5 g/dL (12.0-16.0); LYMPHOCYTES # (AUTO) 2.2 K/uL (1.0-5.5); LYMPHOCYTES % (AUTO) 24.3 % (20.5-51.5); MEAN CORPUSCULAR HEMOGLOBIN 30 pg (27-31); MEAN CORPUSCULAR HGB CONC 32 % (32-36); MEAN CORPUSCULAR VOLUME 94 fL (79.0-98.0); MONOCYTES # (AUTO) 0.6 K/uL (0.0-1.0); MONOCYTES % (AUTO) 6.2 % (1.7-9.3); NEUTROPHILS # (AUTO) 4.9 K/uL (1.8-7.7); NEUTROPHILS % (AUTO) 55.4 % (40.0-70.0); PLATELET COUNT (AUTO) 432 K/uL (130-430); RED BLOOD CELL COUNT(AUTO) 3.46 MIL/uL (4.2-6.2); RED CELL DISTRIBUTION WIDTH 17.2 % (9.0-15.0); WHITE BLOOD COUNT (AUTO) 8.9 K/uL (4.8-10.8)
[2021-05-14 08:00] VITALS: BP_SYST 118
[2021-05-14] MEDS: POTASSIUM CHLORIDE 20 MEQ/PKT PACKET GT SCH ×2 (08:10→23:59)
[2021-05-14] MEDS: ASCORBIC ACID 500 MG TABLET PO SCH (08:10)
[2021-05-14] MEDS: CHOLECALCIFEROL (VITAMIN D3) 5,000 UNIT TABLET PO SCH (08:11)
[2021-05-14] MEDS: FUROSEMIDE 20 MG/2 ML VIAL IVP SCH (08:11)
[2021-05-14] MEDS: PANTOPRAZOLE SODIUM 40 MG/VIAL (PROTONIX) IVP SCH (08:11)
[2021-05-14] MEDS: ACETAMINOPHEN 650 MG/20.3 ML UDC GT PRN ×2 (08:12→14:12)
[2021-05-14] MEDS: ENOXAPARIN SODIUM 100 MG/ML SYRINGE SUBCUT SCH (08:12)
[2021-05-14] MEDS: BALSAM PERU/CASTOR OIL 60 GM OINT...G. TP SCH (08:13)
[2021-05-14 10:41] LABS: CALCIUM 9.2 mg/dL (8.4-11.0); CREATININE 0.54 mg/dL (0.55-1.30); POTASSIUM 3.7 mmol/L (3.5-5.1)
[2021-05-14 11:17] LABS: C-REACTIVE PROTEIN QUANT 1.6 mg/dL (0-0.5)
[2021-05-14 12:00] VITALS: BP_SYST 124
[2021-05-14 13:36] VITALS: BP_SYST 124
[2021-05-14 14:29] LABS: ERYTHROCYTE SEDIMENTATION RATE 91 MM/HR (0-20)
[2021-05-14 16:00] VITALS: BP_SYST 116
[2021-05-14] MEDS: PIPERACILLIN/TAZO 4.5GM/DEX-IS 100 ML IV SCH (17:34)
[2021-05-14 19:00] VITALS: BP_SYST 125
[2021-05-15] MEDS: ENOXAPARIN SODIUM 100 MG/ML SYRINGE SUBCUT SCH ×3 (00:01→22:13)
[2021-05-15 00:37] VITALS: BP_SYST 127
[2021-05-15] MEDS: PIPERACILLIN/TAZO 4.5GM/DEX-IS 100 ML IV SCH ×2 (01:41→09:12)
[2021-05-15] MEDS: ACETAMINOPHEN 650 MG/20.3 ML UDC GT PRN ×3 (05:50→17:29)
[2021-05-15] MEDS: ALBUTEROL MDI INHALATION 8 GM INH INH SCH ×5 (05:51→23:00)
[2021-05-15] MEDS: NORMAL SALINE 5 ML DISP.SYRIN IVF SCH ×4 (05:51→22:14)
[2021-05-15 07:26] LABS: BASOPHILS # (AUTO) 0.1 K/uL (0.0-0.2); BASOPHILS % (AUTO) 0.8 % (0.0-2.0); EOSINOPHILS # (AUTO) 1.4 K/uL (0.0-0.4); EOSINOPHILS % (AUTO) 14.4 % (0.0-4.0); HEMATOCRIT 34.7 % (36-48); LYMPHOCYTES # (AUTO) 2.6 K/uL (1.0-5.5); LYMPHOCYTES % (AUTO) 26.5 % (20.5-51.5); MEAN CORPUSCULAR HEMOGLOBIN 30 pg (27-31); MEAN CORPUSCULAR HGB CONC 32 % (32-36); MEAN CORPUSCULAR VOLUME 95 fL (79.0-98.0); MONOCYTES # (AUTO) 0.6 K/uL (0.0-1.0); MONOCYTES % (AUTO) 6.6 % (1.7-9.3); NEUTROPHILS % (AUTO) 51.7 % (40.0-70.0); PLATELET COUNT (AUTO) 434 K/uL (130-430); RED BLOOD CELL COUNT(AUTO) 3.65 MIL/uL (4.2-6.2); RED CELL DISTRIBUTION WIDTH 17.2 % (9.0-15.0); WHITE BLOOD COUNT (AUTO) 9.7 K/uL (4.8-10.8)
[2021-05-15 08:00] VITALS: BP_SYST 117
[2021-05-15 08:20] LABS: ALBUMIN 2.6 g/dL (3.4-4.8); C-REACTIVE PROTEIN QUANT 1.8 mg/dL (0-0.5); CALCIUM 9.5 mg/dL (8.4-11.0); CREATININE 0.52 mg/dL (0.55-1.30); POTASSIUM 4.1 mmol/L (3.5-5.1); TOTAL BILIRUBIN 0.5 mg/dL (0.0-1.0)
[2021-05-15] MEDS: POTASSIUM CHLORIDE 20 MEQ/PKT PACKET GT SCH ×2 (08:51→21:56)
[2021-05-15] MEDS: CHOLECALCIFEROL (VITAMIN D3) 5,000 UNIT TABLET PO SCH (08:52)
[2021-05-15] MEDS: ASCORBIC ACID 500 MG TABLET PO SCH (08:52)
[2021-05-15] MEDS: PANTOPRAZOLE SODIUM 40 MG/VIAL (PROTONIX) IVP SCH (08:53)
[2021-05-15] MEDS: BALSAM PERU/CASTOR OIL 60 GM OINT...G. TP SCH (09:10)
[2021-05-15] MEDS ORDERED: COLCHICINE 0.6 MG TABLET PO ONE (10:45)
[2021-05-15 10:56] LABS: ERYTHROCYTE SEDIMENTATION RATE 91 MM/HR (0-20)
[2021-05-15 11:26] VITALS: BP_SYST 130
[2021-05-15 15:26] VITALS: BP_SYST 118
[2021-05-15 20:00] VITALS: BP_SYST 119
[2021-05-15] MEDS: COLCHICINE 0.6 MG TABLET PO SCH (21:56)
[2021-05-16 00:45] VITALS: BP_SYST 105
[2021-05-16] MEDS: ALBUTEROL MDI INHALATION 8 GM INH INH SCH ×6 (04:08→20:20)
[2021-05-16] MEDS: NORMAL SALINE 5 ML DISP.SYRIN IVF SCH ×3 (05:52→21:20)
[2021-05-16 07:40] LABS: CALCIUM 9.7 mg/dL (8.4-11.0); CREATININE 0.54 mg/dL (0.55-1.30); POTASSIUM 4.1 mmol/L (3.5-5.1)
[2021-05-16 08:10] LABS: BASOPHILS # (AUTO) 0.1 K/uL (0.0-0.2); BASOPHILS % (AUTO) 0.6 % (0.0-2.0); EOSINOPHILS # (AUTO) 1.5 K/uL (0.0-0.4); EOSINOPHILS % (AUTO) 13.6 % (0.0-4.0); HEMATOCRIT 33.3 % (36-48); LYMPHOCYTES # (AUTO) 2.7 K/uL (1.0-5.5); MEAN CORPUSCULAR HEMOGLOBIN 31 pg (27-31); MEAN CORPUSCULAR HGB CONC 33 % (32-36); MEAN CORPUSCULAR VOLUME 94 fL (79.0-98.0); MONOCYTES # (AUTO) 0.7 K/uL (0.0-1.0); MONOCYTES % (AUTO) 6.2 % (1.7-9.3); NEUTROPHILS # (AUTO) 5.9 K/uL (1.8-7.7); NEUTROPHILS % (AUTO) 54.6 % (40.0-70.0); PLATELET COUNT (AUTO) 395 K/uL (130-430); RED BLOOD CELL COUNT(AUTO) 3.54 MIL/uL (4.2-6.2); RED CELL DISTRIBUTION WIDTH 16.9 % (9.0-15.0); WHITE BLOOD COUNT (AUTO) 10.7 K/uL (4.8-10.8)
[2021-05-16 08:20] VITALS: BP_SYST 131
[2021-05-16] MEDS: ENOXAPARIN SODIUM 100 MG/ML SYRINGE SUBCUT SCH ×2 (10:17→21:21)
[2021-05-16] MEDS: PANTOPRAZOLE SODIUM 40 MG/VIAL (PROTONIX) IVP SCH (10:18)
[2021-05-16] MEDS: POTASSIUM CHLORIDE 20 MEQ/PKT PACKET GT SCH ×2 (10:18→21:19)
[2021-05-16] MEDS: ASCORBIC ACID 500 MG TABLET PO SCH (10:18)
[2021-05-16] MEDS: COLCHICINE 0.6 MG TABLET PO SCH ×2 (10:18→21:19)
[2021-05-16] MEDS: BALSAM PERU/CASTOR OIL 60 GM OINT...G. TP SCH (10:19)
[2021-05-16] MEDS: CHOLECALCIFEROL (VITAMIN D3) 5,000 UNIT TABLET PO SCH (10:39)
[2021-05-16] MEDS: ACETAMINOPHEN 650 MG/20.3 ML UDC GT PRN ×2 (10:40→22:12)
[2021-05-16 12:41] VITALS: BP_SYST 110
[2021-05-16 15:30] VITALS: BP_SYST 127
[2021-05-16] MEDS: ONDANSETRON HCL 4 MG/2 ML VIAL IVP PRN ×2 (16:51→21:20)
[2021-05-16 19:45] VITALS: BP_SYST 120
[2021-05-17] VITALS: BP_SYST 128
[2021-05-17] MEDS: ALBUTEROL MDI INHALATION 8 GM INH INH SCH ×7 (04:14→23:37)
[2021-05-17] MEDS: ACETAMINOPHEN 650 MG/20.3 ML UDC GT PRN ×3 (04:29→17:24)
[2021-05-17] MEDS ORDERED: PIPERACILLIN/TAZOBACTAM 4.5 GM/VIAL (ZOSYN) IV ONE (05:44)
[2021-05-17] MEDS: PIPERACILLIN/TAZO 4.5GM/DEX-IS 100 ML IV SCH ×3 (06:00→23:03)
[2021-05-17] MEDS: NORMAL SALINE 5 ML DISP.SYRIN IVF SCH ×3 (06:31→23:04)
[2021-05-17 07:23] LABS: BASOPHILS # (AUTO) 0.1 K/uL (0.0-0.2); BASOPHILS % (AUTO) 0.7 % (0.0-2.0); EOSINOPHILS % (AUTO) 8.7 % (0.0-4.0); HEMATOCRIT 33.7 % (36-48); HEMOGLOBIN 10.8 g/dL (12.0-16.0); LYMPHOCYTES # (AUTO) 2.5 K/uL (1.0-5.5); LYMPHOCYTES % (AUTO) 21.7 % (20.5-51.5); MEAN CORPUSCULAR HEMOGLOBIN 31 pg (27-31); MEAN CORPUSCULAR HGB CONC 32 % (32-36); MEAN CORPUSCULAR VOLUME 95 fL (79.0-98.0); MONOCYTES # (AUTO) 0.8 K/uL (0.0-1.0); NEUTROPHILS % (AUTO) 61.9 % (40.0-70.0); PLATELET COUNT (AUTO) 351 K/uL (130-430); RED BLOOD CELL COUNT(AUTO) 3.53 MIL/uL (4.2-6.2); RED CELL DISTRIBUTION WIDTH 17.3 % (9.0-15.0); WHITE BLOOD COUNT (AUTO) 11.3 K/uL (4.8-10.8)
[2021-05-17 08:00] VITALS: BP_SYST 124
[2021-05-17 09:25] LABS: ERYTHROCYTE SEDIMENTATION RATE 96 MM/HR (0-20)
[2021-05-17] MEDS: ASCORBIC ACID 500 MG TABLET PO SCH (09:48)
[2021-05-17] MEDS: POTASSIUM CHLORIDE 20 MEQ/PKT PACKET GT SCH ×2 (09:48→21:14)
[2021-05-17] MEDS: COLCHICINE 0.6 MG TABLET PO SCH ×2 (09:48→21:15)
[2021-05-17] MEDS: PANTOPRAZOLE SODIUM 40 MG/VIAL (PROTONIX) IVP SCH (09:49)
[2021-05-17] MEDS: CHOLECALCIFEROL (VITAMIN D3) 5,000 UNIT TABLET PO SCH (09:49)
[2021-05-17] MEDS: BALSAM PERU/CASTOR OIL 60 GM OINT...G. TP SCH (09:50)
[2021-05-17] MEDS: ENOXAPARIN SODIUM 100 MG/ML SYRINGE SUBCUT SCH ×2 (10:27→21:16)
[2021-05-17 10:36] LABS: POTASSIUM 3.6 mmol/L (3.5-5.1)
[2021-05-17 10:37] LABS: CALCIUM 9.4 mg/dL (8.4-11.0); CREATININE 0.71 mg/dL (0.55-1.30)
[2021-05-17] MEDS ORDERED: PIPERACILLIN/TAZO 4.5GM/DEX-IS 100 ML IV SCH (14:00)
[2021-05-17 14:38] LABS: C-REACTIVE PROTEIN QUANT 8.6 mg/dL (0-0.5)
[2021-05-17 15:42] VITALS: BP_SYST 116
[2021-05-17 15:57] VITALS: BP_SYST 116
[2021-05-17 16:36] VITALS: BP_SYST 132
[2021-05-17 20:45] VITALS: BP_SYST 121
[2021-05-17] MEDS: MICAFUNGIN SODIUM 100 MG in NS 100 ML IV SCH (21:15)
[2021-05-18 00:30] VITALS: BP_SYST 122
[2021-05-18] MEDS: ALBUTEROL MDI INHALATION 8 GM INH INH SCH ×5 (03:55→20:15)
[2021-05-18] MEDS: NORMAL SALINE 5 ML DISP.SYRIN IVF SCH ×3 (06:10→22:28)
[2021-05-18] MEDS: PIPERACILLIN/TAZO 4.5GM/DEX-IS 100 ML IV SCH ×3 (06:10→22:28)
[2021-05-18] MEDS: ACETAMINOPHEN 650 MG/20.3 ML UDC GT PRN ×3 (06:16→21:17)
[2021-05-18 06:41] LABS: BASOPHILS # (AUTO) 0.1 K/uL (0.0-0.2); BASOPHILS % (AUTO) 0.8 % (0.0-2.0); EOSINOPHILS # (AUTO) 0.7 K/uL (0.0-0.4); EOSINOPHILS % (AUTO) 5.5 % (0.0-4.0); HEMATOCRIT 31.8 % (36-48); HEMOGLOBIN 10.2 g/dL (12.0-16.0); LYMPHOCYTES # (AUTO) 2.1 K/uL (1.0-5.5); LYMPHOCYTES % (AUTO) 15.9 % (20.5-51.5); MEAN CORPUSCULAR HEMOGLOBIN 31 pg (27-31); MEAN CORPUSCULAR HGB CONC 32 % (32-36); MEAN CORPUSCULAR VOLUME 95 fL (79.0-98.0); MONOCYTES # (AUTO) 0.7 K/uL (0.0-1.0); MONOCYTES % (AUTO) 5.2 % (1.7-9.3); NEUTROPHILS # (AUTO) 9.8 K/uL (1.8-7.7); NEUTROPHILS % (AUTO) 72.6 % (40.0-70.0); PLATELET COUNT (AUTO) 307 K/uL (130-430); RED BLOOD CELL COUNT(AUTO) 3.35 MIL/uL (4.2-6.2); WHITE BLOOD COUNT (AUTO) 13.6 K/uL (4.8-10.8)
[2021-05-18 07:20] LABS: CALCIUM 9.3 mg/dL (8.4-11.0); CREATININE 0.6 mg/dL (0.55-1.30); POTASSIUM 3.7 mmol/L (3.5-5.1)
[2021-05-18 07:33] LABS: C-REACTIVE PROTEIN QUANT 19.9 mg/dL (0-0.5)
[2021-05-18 08:00] VITALS: BP_SYST 133
[2021-05-18] MEDS: PANTOPRAZOLE SODIUM 40 MG/VIAL (PROTONIX) IVP SCH (09:45)
[2021-05-18] MEDS: CHOLECALCIFEROL (VITAMIN D3) 5,000 UNIT TABLET PO SCH (09:52)
[2021-05-18] MEDS: POTASSIUM CHLORIDE 20 MEQ/PKT PACKET GT SCH ×2 (09:52→21:17)
[2021-05-18] MEDS: COLCHICINE 0.6 MG TABLET PO SCH ×2 (09:52→21:17)
[2021-05-18] MEDS: ASCORBIC ACID 500 MG TABLET PO SCH (09:52)
[2021-05-18] MEDS: BALSAM PERU/CASTOR OIL 60 GM OINT...G. TP SCH (09:53)
[2021-05-18] MEDS: ENOXAPARIN SODIUM 100 MG/ML SYRINGE SUBCUT SCH ×2 (10:04→21:19)
[2021-05-18 11:59] LABS: ERYTHROCYTE SEDIMENTATION RATE 107 MM/HR (0-20)
[2021-05-18 12:00] VITALS: BP_SYST 132
[2021-05-18 18:05] VITALS: BP_SYST 142
[2021-05-18 21:00] VITALS: BP_SYST 123
[2021-05-18] MEDS: MICAFUNGIN SODIUM 100 MG in NS 100 ML IV SCH (21:17)
[2021-05-19 02:15] VITALS: BP_SYST 122
[2021-05-19] MEDS: ACETAMINOPHEN 650 MG/20.3 ML UDC GT PRN ×3 (02:21→17:52)
[2021-05-19] MEDS: NORMAL SALINE 5 ML DISP.SYRIN IVF SCH ×3 (05:33→23:10)
[2021-05-19] MEDS: PIPERACILLIN/TAZO 4.5GM/DEX-IS 100 ML IV SCH ×3 (05:34→23:09)
[2021-05-19 06:51] LABS: BASOPHILS # (AUTO) 0.1 K/uL (0.0-0.2); BASOPHILS % (AUTO) 0.4 % (0.0-2.0); EOSINOPHILS # (AUTO) 0.5 K/uL (0.0-0.4); EOSINOPHILS % (AUTO) 4.5 % (0.0-4.0); HEMOGLOBIN 9.6 g/dL (12.0-16.0); LYMPHOCYTES # (AUTO) 2.5 K/uL (1.0-5.5); LYMPHOCYTES % (AUTO) 20.7 % (20.5-51.5); MEAN CORPUSCULAR HEMOGLOBIN 30 pg (27-31); MEAN CORPUSCULAR HGB CONC 32 % (32-36); MEAN CORPUSCULAR VOLUME 95 fL (79.0-98.0); MONOCYTES # (AUTO) 0.6 K/uL (0.0-1.0); MONOCYTES % (AUTO) 5.1 % (1.7-9.3); NEUTROPHILS # (AUTO) 8.2 K/uL (1.8-7.7); NEUTROPHILS % (AUTO) 69.3 % (40.0-70.0); PLATELET COUNT (AUTO) 291 K/uL (130-430); RED BLOOD CELL COUNT(AUTO) 3.15 MIL/uL (4.2-6.2); WHITE BLOOD COUNT (AUTO) 11.9 K/uL (4.8-10.8)
[2021-05-19] MEDS: ALBUTEROL MDI INHALATION 8 GM INH INH SCH ×5 (07:57→23:50)
[2021-05-19 08:00] VITALS: BP_SYST 120
[2021-05-19 08:01] LABS: ALBUMIN 2.2 g/dL (3.4-4.8); CALCIUM 9.1 mg/dL (8.4-11.0); CREATININE 0.63 mg/dL (0.55-1.30); POTASSIUM 3.7 mmol/L (3.5-5.1); TOTAL BILIRUBIN 0.3 mg/dL (0.0-1.0)
[2021-05-19] MEDS: POTASSIUM CHLORIDE 20 MEQ/PKT PACKET GT SCH ×2 (09:12→20:43)
[2021-05-19] MEDS: COLCHICINE 0.6 MG TABLET PO SCH ×2 (09:12→20:44)
[2021-05-19] MEDS: CHOLECALCIFEROL (VITAMIN D3) 5,000 UNIT TABLET PO SCH (09:12)
[2021-05-19] MEDS: ASCORBIC ACID 500 MG TABLET PO SCH (09:12)
[2021-05-19] MEDS: ENOXAPARIN SODIUM 100 MG/ML SYRINGE SUBCUT SCH ×2 (09:32→20:45)
[2021-05-19] MEDS: BALSAM PERU/CASTOR OIL 60 GM OINT...G. TP SCH (09:37)
[2021-05-19] MEDS: PANTOPRAZOLE SODIUM 40 MG/VIAL (PROTONIX) IVP SCH (10:21)
[2021-05-19 11:07] LABS: ERYTHROCYTE SEDIMENTATION RATE 113 MM/HR (0-20)
[2021-05-19 12:00] VITALS: BP_SYST 128
[2021-05-19] MEDS ORDERED: D5W 1,000 ML IV PRN (12:45)
[2021-05-19] MEDS ORDERED: GLUCOSE (DEXTROSE) ORAL GEL -Adults PO PRN (12:45)
[2021-05-19] MEDS ORDERED: DEXTROSE 50%-WATER 50 ML DISP.SYRIN IVP PRN (12:45)
[2021-05-19] MEDS: INSULIN REGULAR, HUMAN 100 UNITS/ML, 10 ML VIAL (humuLIN R) SUBCUT PRN ×3 (13:18→23:17)
[2021-05-19 16:00] VITALS: BP_SYST 125
[2021-05-19 20:00] VITALS: BP_SYST 116
[2021-05-19] MEDS: MICAFUNGIN SODIUM 100 MG in NS 100 ML IV SCH (20:43)
[2021-05-19] MEDS: metFORMIN HCL 500 MG TABLET GT SCH (20:44)
[2021-05-20] MEDS: ACETAMINOPHEN 650 MG/20.3 ML UDC GT PRN ×2 (01:06→05:53)
[2021-05-20 01:30] VITALS: BP_SYST 127
[2021-05-20] MEDS: ALBUTEROL MDI INHALATION 8 GM INH INH SCH ×5 (03:40→15:00)
[2021-05-20] MEDS: PIPERACILLIN/TAZO 4.5GM/DEX-IS 100 ML IV SCH ×3 (05:40→22:11)
[2021-05-20] MEDS: NORMAL SALINE 5 ML DISP.SYRIN IVF SCH ×3 (05:46→22:11)
[2021-05-20] MEDS: INSULIN REGULAR, HUMAN 100 UNITS/ML, 10 ML VIAL (humuLIN R) SUBCUT PRN ×2 (05:51→17:12)
[2021-05-20 07:44] LABS: EOSINOPHILS # (AUTO) 0.6 K/uL (0.0-0.4); HEMOGLOBIN 9.6 g/dL (12.0-16.0); MONOCYTES # (AUTO) 0.6 K/uL (0.0-1.0); RED CELL DISTRIBUTION WIDTH 17.5 % (9.0-15.0)
[2021-05-20 08:00] VITALS: BP_SYST 123
[2021-05-20 08:08] LABS: BASOPHILS # (AUTO) 0.1 K/uL (0.0-0.2); BASOPHILS % (AUTO) 0.7 % (0.0-2.0); EOSINOPHILS % (AUTO) 4.9 % (0.0-4.0); HEMATOCRIT 30.2 % (36-48); LYMPHOCYTES # (AUTO) 2.8 K/uL (1.0-5.5); LYMPHOCYTES % (AUTO) 22.8 % (20.5-51.5); MEAN CORPUSCULAR HEMOGLOBIN 30 pg (27-31); MEAN CORPUSCULAR HGB CONC 32 % (32-36); MEAN CORPUSCULAR VOLUME 95 fL (79.0-98.0); MONOCYTES % (AUTO) 5.2 % (1.7-9.3); NEUTROPHILS # (AUTO) 8.2 K/uL (1.8-7.7); NEUTROPHILS % (AUTO) 66.4 % (40.0-70.0); PLATELET COUNT (AUTO) 295 K/uL (130-430); RED BLOOD CELL COUNT(AUTO) 3.18 MIL/uL (4.2-6.2); WHITE BLOOD COUNT (AUTO) 12.4 K/uL (4.8-10.8)
[2021-05-20 08:35] LABS: CALCIUM 9.4 mg/dL (8.4-11.0); CREATININE 0.47 mg/dL (0.55-1.30); POTASSIUM 3.5 mmol/L (3.5-5.1)
[2021-05-20 08:45] LABS: C-REACTIVE PROTEIN QUANT 19.4 mg/dL (0-0.5)
[2021-05-20 08:46] LABS: ERYTHROCYTE SEDIMENTATION RATE 113 MM/HR (0-20)
[2021-05-20] MEDS: ASCORBIC ACID 500 MG TABLET PO SCH (08:53)
[2021-05-20] MEDS: BALSAM PERU/CASTOR OIL 60 GM OINT...G. TP SCH (08:53)
[2021-05-20] MEDS: POTASSIUM CHLORIDE 20 MEQ/PKT PACKET GT SCH ×2 (08:54→20:53)
[2021-05-20] MEDS: metFORMIN HCL 500 MG TABLET GT SCH ×2 (08:54→20:56)
[2021-05-20] MEDS: COLCHICINE 0.6 MG TABLET PO SCH ×2 (08:54→20:54)
[2021-05-20] MEDS: PANTOPRAZOLE SODIUM 40 MG/VIAL (PROTONIX) IVP SCH (08:54)
[2021-05-20] MEDS: ENOXAPARIN SODIUM 100 MG/ML SYRINGE SUBCUT SCH ×2 (08:55→22:10)
[2021-05-20] MEDS: CHOLECALCIFEROL (VITAMIN D3) 5,000 UNIT TABLET PO SCH (09:00)
[2021-05-20 12:00] VITALS: BP_SYST 110
[2021-05-20 15:34] VITALS: BP_SYST 122
[2021-05-20 20:21] VITALS: BP_SYST 123
[2021-05-20] MEDS: MICAFUNGIN SODIUM 100 MG in NS 100 ML IV SCH (20:54)
[2021-05-21] MEDS: INSULIN REGULAR, HUMAN 100 UNITS/ML, 10 ML VIAL (humuLIN R) SUBCUT PRN ×5 (00:05→23:39)
[2021-05-21 00:30] VITALS: BP_SYST 125
[2021-05-21] MEDS: PIPERACILLIN/TAZO 4.5GM/DEX-IS 100 ML IV SCH ×3 (06:02→21:52)
[2021-05-21] MEDS: NORMAL SALINE 5 ML DISP.SYRIN IVF SCH ×2 (06:03→21:51)
[2021-05-21 07:49] LABS: BASOPHILS # (AUTO) 0.1 K/uL (0.0-0.2); BASOPHILS % (AUTO) 0.9 % (0.0-2.0); EOSINOPHILS # (AUTO) 0.7 K/uL (0.0-0.4); EOSINOPHILS % (AUTO) 6.1 % (0.0-4.0); HEMATOCRIT 28.8 % (36-48); HEMOGLOBIN 9.4 g/dL (12.0-16.0); LYMPHOCYTES # (AUTO) 2.8 K/uL (1.0-5.5); LYMPHOCYTES % (AUTO) 26.3 % (20.5-51.5); MEAN CORPUSCULAR HEMOGLOBIN 31 pg (27-31); MEAN CORPUSCULAR HGB CONC 33 % (32-36); MEAN CORPUSCULAR VOLUME 94 fL (79.0-98.0); MONOCYTES # (AUTO) 0.4 K/uL (0.0-1.0); MONOCYTES % (AUTO) 4.1 % (1.7-9.3); NEUTROPHILS # (AUTO) 6.7 K/uL (1.8-7.7); NEUTROPHILS % (AUTO) 62.6 % (40.0-70.0); PLATELET COUNT (AUTO) 280 K/uL (130-430); RED BLOOD CELL COUNT(AUTO) 3.05 MIL/uL (4.2-6.2); WHITE BLOOD COUNT (AUTO) 10.7 K/uL (4.8-10.8)
[2021-05-21 08:00] VITALS: BP_SYST 135
[2021-05-21 08:36] LABS: CALCIUM 9.4 mg/dL (8.4-11.0); CREATININE 0.43 mg/dL (0.55-1.30); POTASSIUM 3.4 mmol/L (3.5-5.1)
[2021-05-21] MEDS: ENOXAPARIN SODIUM 100 MG/ML SYRINGE SUBCUT SCH ×2 (09:00→20:06)
[2021-05-21] MEDS: PANTOPRAZOLE SODIUM 40 MG/VIAL (PROTONIX) IVP SCH (09:00)
[2021-05-21] MEDS: POTASSIUM CHLORIDE 20 MEQ/PKT PACKET GT SCH ×2 (09:00→20:05)
[2021-05-21] MEDS: COLCHICINE 0.6 MG TABLET PO SCH ×2 (09:00→20:06)
[2021-05-21] MEDS: metFORMIN HCL 500 MG TABLET GT SCH ×2 (09:00→20:06)
[2021-05-21] MEDS: CHOLECALCIFEROL (VITAMIN D3) 5,000 UNIT TABLET PO SCH (09:00)
[2021-05-21] MEDS: ASCORBIC ACID 500 MG TABLET PO SCH (09:00)
[2021-05-21] MEDS: ACETAMINOPHEN 650 MG/20.3 ML UDC GT PRN ×3 (09:43→20:32)
[2021-05-21] MEDS ORDERED: POTASSIUM CHLORIDE 20 MEQ/PKT PACKET PO ONE (10:00)
[2021-05-21] MEDS ORDERED: POTASSIUM CHLORIDE 20 MEQ TAB.PRT.SR GT ONE (10:15)
[2021-05-21 10:37] LABS: C-REACTIVE PROTEIN QUANT 13.9 mg/dL (0-0.5)
[2021-05-21 11:17] LABS: ERYTHROCYTE SEDIMENTATION RATE 108 MM/HR (0-20)
[2021-05-21 14:50] VITALS: BP_SYST 128
[2021-05-21 18:14] VITALS: BP_SYST 126
[2021-05-21] MEDS: ALBUTEROL MDI INHALATION 8 GM INH INH SCH (19:49)
[2021-05-21] MEDS: MICAFUNGIN SODIUM 100 MG in NS 100 ML IV SCH (20:06)
[2021-05-22 00:08] VITALS: BP_SYST 92
[2021-05-22] MEDS: ALBUTEROL MDI INHALATION 8 GM INH INH SCH ×6 (01:38→20:33)
[2021-05-22] MEDS: PIPERACILLIN/TAZO 4.5GM/DEX-IS 100 ML IV SCH ×3 (05:29→22:00)
[2021-05-22] MEDS: NORMAL SALINE 5 ML DISP.SYRIN IVF SCH ×3 (05:35→22:00)
[2021-05-22] MEDS: INSULIN REGULAR, HUMAN 100 UNITS/ML, 10 ML VIAL (humuLIN R) SUBCUT PRN ×3 (05:44→23:49)
[2021-05-22 06:53] LABS: BASOPHILS % (AUTO) 0.5 % (0.0-2.0); EOSINOPHILS # (AUTO) 0.7 K/uL (0.0-0.4); EOSINOPHILS % (AUTO) 6.4 % (0.0-4.0); HEMATOCRIT 31.8 % (36-48); HEMOGLOBIN 10.4 g/dL (12.0-16.0); LYMPHOCYTES % (AUTO) 18.9 % (20.5-51.5); MEAN CORPUSCULAR HEMOGLOBIN 31 pg (27-31); MEAN CORPUSCULAR HGB CONC 33 % (32-36); MEAN CORPUSCULAR VOLUME 94 fL (79.0-98.0); MONOCYTES # (AUTO) 0.5 K/uL (0.0-1.0); MONOCYTES % (AUTO) 5.2 % (1.7-9.3); NEUTROPHILS # (AUTO) 7.2 K/uL (1.8-7.7); PLATELET COUNT (AUTO) 284 K/uL (130-430); RED BLOOD CELL COUNT(AUTO) 3.38 MIL/uL (4.2-6.2); RED CELL DISTRIBUTION WIDTH 16.7 % (9.0-15.0); WHITE BLOOD COUNT (AUTO) 10.4 K/uL (4.8-10.8)
[2021-05-22 08:00] VITALS: BP_SYST 131
[2021-05-22] MEDS: metFORMIN HCL 500 MG TABLET GT SCH ×2 (08:56→21:02)
[2021-05-22] MEDS: COLCHICINE 0.6 MG TABLET PO SCH ×2 (08:56→20:35)
[2021-05-22] MEDS: POTASSIUM CHLORIDE 20 MEQ/PKT PACKET GT SCH ×2 (08:56→20:35)
[2021-05-22] MEDS: ASCORBIC ACID 500 MG TABLET PO SCH (08:56)
[2021-05-22] MEDS: PANTOPRAZOLE SODIUM 40 MG/VIAL (PROTONIX) IVP SCH (08:56)
[2021-05-22] MEDS: CHOLECALCIFEROL (VITAMIN D3) 5,000 UNIT TABLET PO SCH (08:57)
[2021-05-22] MEDS: BALSAM PERU/CASTOR OIL 60 GM OINT...G. TP SCH (08:57)
[2021-05-22] MEDS: ENOXAPARIN SODIUM 100 MG/ML SYRINGE SUBCUT SCH ×2 (08:59→20:57)
[2021-05-22 10:03] LABS: ERYTHROCYTE SEDIMENTATION RATE 106 MM/HR (0-20)
[2021-05-22 11:25] LABS: ALBUMIN 2.1 g/dL (3.4-4.8); C-REACTIVE PROTEIN QUANT 8.9 mg/dL (0-0.5); CALCIUM 9.3 mg/dL (8.4-11.0); CREATININE 0.38 mg/dL (0.55-1.30); POTASSIUM 3.3 mmol/L (3.5-5.1); TOTAL BILIRUBIN 0.3 mg/dL (0.0-1.0)
[2021-05-22 11:40] VITALS: BP_SYST 117
[2021-05-22 15:38] VITALS: BP_SYST 116
[2021-05-22 20:00] VITALS: BP_SYST 132
[2021-05-22] MEDS: MICAFUNGIN SODIUM 100 MG in NS 100 ML IV SCH ×2 (20:00→20:35)
[2021-05-23 00:37] VITALS: BP_SYST 116
[2021-05-23] MEDS: INSULIN REGULAR, HUMAN 100 UNITS/ML, 10 ML VIAL (humuLIN R) SUBCUT PRN ×4 (05:57→23:38)
[2021-05-23] MEDS: PIPERACILLIN/TAZO 4.5GM/DEX-IS 100 ML IV SCH ×2 (05:58→13:25)
[2021-05-23] MEDS: NORMAL SALINE 5 ML DISP.SYRIN IVF SCH ×3 (06:00→20:41)
[2021-05-23 07:05] LABS: BASOPHILS # (AUTO) 0.1 K/uL (0.0-0.2); BASOPHILS % (AUTO) 0.5 % (0.0-2.0); EOSINOPHILS # (AUTO) 0.6 K/uL (0.0-0.4); EOSINOPHILS % (AUTO) 5.6 % (0.0-4.0); HEMATOCRIT 29.1 % (36-48); HEMOGLOBIN 9.6 g/dL (12.0-16.0); LYMPHOCYTES # (AUTO) 2.4 K/uL (1.0-5.5); LYMPHOCYTES % (AUTO) 21.3 % (20.5-51.5); MEAN CORPUSCULAR HEMOGLOBIN 31 pg (27-31); MEAN CORPUSCULAR HGB CONC 33 % (32-36); MEAN CORPUSCULAR VOLUME 93 fL (79.0-98.0); MONOCYTES # (AUTO) 0.5 K/uL (0.0-1.0); MONOCYTES % (AUTO) 4.7 % (1.7-9.3); NEUTROPHILS # (AUTO) 7.7 K/uL (1.8-7.7); NEUTROPHILS % (AUTO) 67.9 % (40.0-70.0); PLATELET COUNT (AUTO) 272 K/uL (130-430); RED BLOOD CELL COUNT(AUTO) 3.13 MIL/uL (4.2-6.2); RED CELL DISTRIBUTION WIDTH 17.5 % (9.0-15.0); WHITE BLOOD COUNT (AUTO) 11.3 K/uL (4.8-10.8)
[2021-05-23 07:22] LABS: CALCIUM 9.1 mg/dL (8.4-11.0); CREATININE 0.36 mg/dL (0.55-1.30); POTASSIUM 3.2 mmol/L (3.5-5.1)
[2021-05-23 07:40] LABS: C-REACTIVE PROTEIN QUANT 12.2 mg/dL (0-0.5)
[2021-05-23 08:09] VITALS: BP_SYST 125
[2021-05-23] MEDS: ALBUTEROL MDI INHALATION 8 GM INH INH SCH ×4 (08:17→20:30)
[2021-05-23] MEDS: COLCHICINE 0.6 MG TABLET PO SCH ×2 (09:14→20:41)
[2021-05-23] MEDS: POTASSIUM CHLORIDE 20 MEQ/PKT PACKET GT SCH ×2 (09:14→20:41)
[2021-05-23] MEDS: metFORMIN HCL 500 MG TABLET GT SCH ×2 (09:14→20:41)
[2021-05-23] MEDS: ASCORBIC ACID 500 MG TABLET PO SCH (09:14)
[2021-05-23] MEDS: CHOLECALCIFEROL (VITAMIN D3) 5,000 UNIT TABLET PO SCH (09:14)
[2021-05-23] MEDS: BALSAM PERU/CASTOR OIL 60 GM OINT...G. TP SCH (09:15)
[2021-05-23] MEDS: PANTOPRAZOLE SODIUM 40 MG/VIAL (PROTONIX) IVP SCH (09:15)
[2021-05-23] MEDS: ENOXAPARIN SODIUM 100 MG/ML SYRINGE SUBCUT SCH ×2 (09:16→20:42)
[2021-05-23 10:12] VITALS: BP_SYST 125
[2021-05-23 10:50] LABS: ERYTHROCYTE SEDIMENTATION RATE 112 MM/HR (0-20)
[2021-05-23 12:39] VITALS: BP_SYST 127
[2021-05-23 16:56] VITALS: BP_SYST 121
[2021-05-23 20:00] VITALS: BP_SYST 116
[2021-05-23] MEDS: MICAFUNGIN SODIUM 100 MG in NS 100 ML IV SCH (20:40)
[2021-05-24 00:35] VITALS: BP_SYST 131
[2021-05-24] MEDS: NORMAL SALINE 5 ML DISP.SYRIN IVF SCH ×2 (05:16→14:46)
[2021-05-24] MEDS: INSULIN REGULAR, HUMAN 100 UNITS/ML, 10 ML VIAL (humuLIN R) SUBCUT PRN ×2 (05:17→11:10)
[2021-05-24] MEDS: ACETAMINOPHEN 650 MG/20.3 ML UDC GT PRN ×2 (05:22→10:12)
[2021-05-24 06:51] LABS: BASOPHILS # (AUTO) 0.1 K/uL (0.0-0.2); BASOPHILS % (AUTO) 0.4 % (0.0-2.0); EOSINOPHILS # (AUTO) 0.7 K/uL (0.0-0.4); EOSINOPHILS % (AUTO) 5.7 % (0.0-4.0); HEMATOCRIT 30.4 % (36-48); LYMPHOCYTES # (AUTO) 2.5 K/uL (1.0-5.5); LYMPHOCYTES % (AUTO) 20.3 % (20.5-51.5); MEAN CORPUSCULAR HEMOGLOBIN 31 pg (27-31); MEAN CORPUSCULAR HGB CONC 33 % (32-36); MEAN CORPUSCULAR VOLUME 93 fL (79.0-98.0); MONOCYTES # (AUTO) 0.6 K/uL (0.0-1.0); MONOCYTES % (AUTO) 4.9 % (1.7-9.3); NEUTROPHILS # (AUTO) 8.4 K/uL (1.8-7.7); NEUTROPHILS % (AUTO) 68.7 % (40.0-70.0); PLATELET COUNT (AUTO) 305 K/uL (130-430); RED BLOOD CELL COUNT(AUTO) 3.26 MIL/uL (4.2-6.2); WHITE BLOOD COUNT (AUTO) 12.2 K/uL (4.8-10.8)
[2021-05-24 07:25] LABS: CALCIUM 9.2 mg/dL (8.4-11.0); CREATININE 0.47 mg/dL (0.55-1.30); POTASSIUM 3.5 mmol/L (3.5-5.1)
[2021-05-24 08:00] VITALS: BP_SYST 121
[2021-05-24] MEDS: PANTOPRAZOLE SODIUM 40 MG/VIAL (PROTONIX) IVP SCH (08:25)
[2021-05-24] MEDS: CHOLECALCIFEROL (VITAMIN D3) 5,000 UNIT TABLET PO SCH (08:25)
[2021-05-24] MEDS: POTASSIUM CHLORIDE 20 MEQ/PKT PACKET GT SCH ×2 (08:25→21:46)
[2021-05-24] MEDS: COLCHICINE 0.6 MG TABLET PO SCH ×2 (08:26→20:33)
[2021-05-24] MEDS: ASCORBIC ACID 500 MG TABLET PO SCH (08:26)
[2021-05-24] MEDS: BALSAM PERU/CASTOR OIL 60 GM OINT...G. TP SCH (08:26)
[2021-05-24] MEDS: metFORMIN HCL 500 MG TABLET GT SCH ×2 (08:26→20:33)
[2021-05-24] MEDS: ENOXAPARIN SODIUM 100 MG/ML SYRINGE SUBCUT SCH ×2 (08:27→20:35)
[2021-05-24 08:39] LABS: ERYTHROCYTE SEDIMENTATION RATE 107 MM/HR (0-20)
[2021-05-24 08:59] LABS: C-REACTIVE PROTEIN QUANT 14.5 mg/dL (0-0.5)
[2021-05-24] MEDS ORDERED: POTASSIUM CHLORIDE 20 MEQ/PKT PACKET GT ONE (10:00)
[2021-05-24] MEDS: FLUCONAZOLE 200 mg/ NS 100 ML IV SCH (10:12)
[2021-05-24 12:00] VITALS: BP_SYST 121
[2021-05-24] MEDS: ALBUTEROL MDI INHALATION 8 GM INH INH SCH ×3 (15:19→23:43)
[2021-05-24 16:00] VITALS: BP_SYST 122
[2021-05-24] MEDS: CEFEPIME 1 GM in D5W 50 ML IV SCH (20:34)
[2021-05-24] MEDS ORDERED: POTASSIUM CHLORIDE 20 MEQ/PKT PACKET GT SCH (21:00)
[2021-05-25] MEDS: NORMAL SALINE 5 ML DISP.SYRIN IVF SCH ×4 (00:02→20:41)
[2021-05-25] MEDS: INSULIN REGULAR, HUMAN 100 UNITS/ML, 10 ML VIAL (humuLIN R) SUBCUT PRN ×5 (00:02→23:51)
[2021-05-25 00:30] VITALS: BP_SYST 104
[2021-05-25] MEDS: ALBUTEROL MDI INHALATION 8 GM INH INH SCH ×5 (04:01→23:01)
[2021-05-25 06:46] LABS: BASOPHILS % (AUTO) 0.3 % (0.0-2.0); EOSINOPHILS % (AUTO) 7.7 % (0.0-4.0); HEMATOCRIT 31.6 % (36-48); HEMOGLOBIN 10.3 g/dL (12.0-16.0); LYMPHOCYTES # (AUTO) 2.4 K/uL (1.0-5.5); LYMPHOCYTES % (AUTO) 18.9 % (20.5-51.5); MEAN CORPUSCULAR HEMOGLOBIN 30 pg (27-31); MEAN CORPUSCULAR HGB CONC 33 % (32-36); MEAN CORPUSCULAR VOLUME 94 fL (79.0-98.0); MONOCYTES # (AUTO) 0.5 K/uL (0.0-1.0); NEUTROPHILS # (AUTO) 8.8 K/uL (1.8-7.7); NEUTROPHILS % (AUTO) 69.1 % (40.0-70.0); PLATELET COUNT (AUTO) 302 K/uL (130-430); RED BLOOD CELL COUNT(AUTO) 3.38 MIL/uL (4.2-6.2); RED CELL DISTRIBUTION WIDTH 17.7 % (9.0-15.0); WHITE BLOOD COUNT (AUTO) 12.8 K/uL (4.8-10.8)
[2021-05-25 07:22] LABS: CALCIUM 9.3 mg/dL (8.4-11.0); CREATININE 0.43 mg/dL (0.55-1.30); POTASSIUM 3.9 mmol/L (3.5-5.1)
[2021-05-25 07:54] LABS: C-REACTIVE PROTEIN QUANT 16.1 mg/dL (0-0.5)
[2021-05-25 08:20] VITALS: BP_SYST 120
[2021-05-25] MEDS: ASCORBIC ACID 500 MG TABLET PO SCH (09:00)
[2021-05-25] MEDS: COLCHICINE 0.6 MG TABLET PO SCH ×2 (09:00→20:38)
[2021-05-25] MEDS: CHOLECALCIFEROL (VITAMIN D3) 5,000 UNIT TABLET PO SCH (09:01)
[2021-05-25] MEDS: metFORMIN HCL 500 MG TABLET GT SCH ×2 (09:01→20:38)
[2021-05-25] MEDS: POTASSIUM CHLORIDE 20 MEQ/PKT PACKET GT SCH ×2 (09:02→20:42)
[2021-05-25] MEDS: BALSAM PERU/CASTOR OIL 60 GM OINT...G. TP SCH (09:02)
[2021-05-25] MEDS: PANTOPRAZOLE SODIUM 40 MG/VIAL (PROTONIX) IVP SCH (09:02)
[2021-05-25] MEDS: ENOXAPARIN SODIUM 100 MG/ML SYRINGE SUBCUT SCH ×2 (09:02→20:41)
[2021-05-25] MEDS: CEFEPIME 1 GM in D5W 50 ML IV SCH ×2 (09:04→23:46)
[2021-05-25 09:17] LABS: ERYTHROCYTE SEDIMENTATION RATE 104 MM/HR (0-20)
[2021-05-25] MEDS: FLUCONAZOLE 200 mg/ NS 100 ML IV SCH (11:14)
[2021-05-25 12:35] VITALS: BP_SYST 119
[2021-05-25 17:36] VITALS: BP_SYST 110
[2021-05-26 01:05] VITALS: BP_SYST 115
[2021-05-26] MEDS: INSULIN REGULAR, HUMAN 100 UNITS/ML, 10 ML VIAL (humuLIN R) SUBCUT PRN ×3 (05:31→18:19)
[2021-05-26 07:24] LABS: BASOPHILS % (AUTO) 0.1 % (0.0-2.0); EOSINOPHILS # (AUTO) 1.5 K/uL (0.0-0.4); EOSINOPHILS % (AUTO) 9.6 % (0.0-4.0); HEMATOCRIT 32.2 % (36-48); HEMOGLOBIN 10.5 g/dL (12.0-16.0); LYMPHOCYTES # (AUTO) 2.1 K/uL (1.0-5.5); LYMPHOCYTES % (AUTO) 14.1 % (20.5-51.5); MEAN CORPUSCULAR HEMOGLOBIN 31 pg (27-31); MEAN CORPUSCULAR HGB CONC 33 % (32-36); MEAN CORPUSCULAR VOLUME 94 fL (79.0-98.0); MONOCYTES # (AUTO) 0.7 K/uL (0.0-1.0); MONOCYTES % (AUTO) 4.4 % (1.7-9.3); NEUTROPHILS # (AUTO) 10.8 K/uL (1.8-7.7); NEUTROPHILS % (AUTO) 71.8 % (40.0-70.0); PLATELET COUNT (AUTO) 334 K/uL (130-430); RED BLOOD CELL COUNT(AUTO) 3.45 MIL/uL (4.2-6.2); RED CELL DISTRIBUTION WIDTH 17.3 % (9.0-15.0); WHITE BLOOD COUNT (AUTO) 15.1 K/uL (4.8-10.8)
[2021-05-26 08:00] VITALS: BP_SYST 127
[2021-05-26] MEDS: ALBUTEROL MDI INHALATION 8 GM INH INH SCH ×3 (08:10→15:55)
[2021-05-26 08:14] LABS: ALBUMIN 2.1 g/dL (3.4-4.8); C-REACTIVE PROTEIN QUANT 22.5 mg/dL (0-0.5); CALCIUM 9.6 mg/dL (8.4-11.0); CREATININE 0.41 mg/dL (0.55-1.30); TOTAL BILIRUBIN 0.3 mg/dL (0.0-1.0)
[2021-05-26] MEDS: CEFEPIME 1 GM in D5W 50 ML IV SCH ×2 (10:37→23:13)
[2021-05-26] MEDS: PANTOPRAZOLE SODIUM 40 MG/VIAL (PROTONIX) IVP SCH (10:40)
[2021-05-26] MEDS: CHOLECALCIFEROL (VITAMIN D3) 5,000 UNIT TABLET PO SCH (10:41)
[2021-05-26] MEDS: POTASSIUM CHLORIDE 20 MEQ/PKT PACKET GT SCH ×2 (10:41→23:14)
[2021-05-26] MEDS: metFORMIN HCL 500 MG TABLET GT SCH ×2 (10:42→23:17)
[2021-05-26] MEDS: ASCORBIC ACID 500 MG TABLET PO SCH (10:42)
[2021-05-26] MEDS: COLCHICINE 0.6 MG TABLET PO SCH ×2 (10:42→23:13)
[2021-05-26] MEDS: BALSAM PERU/CASTOR OIL 60 GM OINT...G. TP SCH (10:56)
[2021-05-26] MEDS: ENOXAPARIN SODIUM 100 MG/ML SYRINGE SUBCUT SCH ×2 (11:08→23:16)
[2021-05-26 11:46] LABS: ERYTHROCYTE SEDIMENTATION RATE 101 MM/HR (0-20)
[2021-05-26] MEDS: FLUCONAZOLE 200 mg/ NS 100 ML IV SCH (12:13)
[2021-05-26 12:45] VITALS: BP_SYST 120
[2021-05-26 16:34] VITALS: BP_SYST 124
[2021-05-26] MEDS: VANCOMYCIN HCL 1.25 GM/NS 250 ML IV SCH (17:36)
[2021-05-26] MEDS: NORMAL SALINE 5 ML DISP.SYRIN IVF SCH (17:38)
[2021-05-26] MEDS: ACETAMINOPHEN 650 MG/20.3 ML UDC GT PRN (18:14)
[2021-05-26 19:00] VITALS: BP_SYST 110
[2021-05-26 20:00] VITALS: BP_SYST 110
[2021-05-27 00:35] VITALS: BP_SYST 138
[2021-05-27] MEDS: VANCOMYCIN HCL 1.25 GM/NS 250 ML IV SCH ×3 (01:09→17:52)
[2021-05-27] MEDS: INSULIN REGULAR, HUMAN 100 UNITS/ML, 10 ML VIAL (humuLIN R) SUBCUT PRN ×5 (01:14→23:20)
[2021-05-27] MEDS: ACETAMINOPHEN 650 MG/20.3 ML UDC GT PRN ×4 (03:28→22:56)
[2021-05-27 04:00] VITALS: BP_SYST 127
[2021-05-27 06:49] LABS: BASOPHILS % (AUTO) 0.3 % (0.0-2.0); EOSINOPHILS # (AUTO) 1.5 K/uL (0.0-0.4); EOSINOPHILS % (AUTO) 10.1 % (0.0-4.0); HEMATOCRIT 31.2 % (36-48); HEMOGLOBIN 10.3 g/dL (12.0-16.0); LYMPHOCYTES # (AUTO) 2.6 K/uL (1.0-5.5); LYMPHOCYTES % (AUTO) 17.8 % (20.5-51.5); MEAN CORPUSCULAR HEMOGLOBIN 31 pg (27-31); MEAN CORPUSCULAR HGB CONC 33 % (32-36); MEAN CORPUSCULAR VOLUME 93 fL (79.0-98.0); MONOCYTES # (AUTO) 0.8 K/uL (0.0-1.0); MONOCYTES % (AUTO) 5.2 % (1.7-9.3); NEUTROPHILS # (AUTO) 9.6 K/uL (1.8-7.7); NEUTROPHILS % (AUTO) 66.6 % (40.0-70.0); PLATELET COUNT (AUTO) 353 K/uL (130-430); RED BLOOD CELL COUNT(AUTO) 3.35 MIL/uL (4.2-6.2); RED CELL DISTRIBUTION WIDTH 17.4 % (9.0-15.0); WHITE BLOOD COUNT (AUTO) 14.5 K/uL (4.8-10.8)
[2021-05-27 07:24] LABS: CALCIUM 9.8 mg/dL (8.4-11.0); CREATININE 0.47 mg/dL (0.55-1.30); POTASSIUM 3.6 mmol/L (3.5-5.1)
[2021-05-27] MEDS: ALBUTEROL MDI INHALATION 8 GM INH INH SCH ×4 (07:50→20:21)
[2021-05-27 08:00] VITALS: BP_SYST 131
[2021-05-27 08:44] LABS: C-REACTIVE PROTEIN QUANT 15.6 mg/dL (0-0.5)
[2021-05-27] MEDS: POTASSIUM CHLORIDE 20 MEQ/PKT PACKET GT SCH ×2 (09:51→22:53)
[2021-05-27] MEDS: CHOLECALCIFEROL (VITAMIN D3) 5,000 UNIT TABLET PO SCH (09:51)
[2021-05-27] MEDS: ASCORBIC ACID 500 MG TABLET PO SCH (09:51)
[2021-05-27] MEDS: PANTOPRAZOLE SODIUM 40 MG/VIAL (PROTONIX) IVP SCH (09:51)
[2021-05-27] MEDS: COLCHICINE 0.6 MG TABLET PO SCH ×2 (09:51→22:54)
[2021-05-27] MEDS: metFORMIN HCL 500 MG TABLET GT SCH ×2 (09:51→22:54)
[2021-05-27] MEDS: CEFEPIME 1 GM in D5W 50 ML IV SCH (09:52)
[2021-05-27] MEDS: BALSAM PERU/CASTOR OIL 60 GM OINT...G. TP SCH (09:54)
[2021-05-27] MEDS: ENOXAPARIN SODIUM 100 MG/ML SYRINGE SUBCUT SCH ×2 (09:57→22:57)
[2021-05-27 10:13] LABS: ERYTHROCYTE SEDIMENTATION RATE 107 MM/HR (0-20)
[2021-05-27] MEDS ORDERED: CARVEDILOL 6.25 MG TABLET (COREG) PO ONE (11:15)
[2021-05-27 11:28] VITALS: BP_SYST 124
[2021-05-27] MEDS: NORMAL SALINE 5 ML DISP.SYRIN IVF SCH ×3 (14:06→22:58)
[2021-05-27] MEDS: FLUCONAZOLE 200 mg/ NS 100 ML IV SCH (14:07)
[2021-05-27 15:35] VITALS: BP_SYST 120
[2021-05-27] MEDS ORDERED: SACCHAROMYCES BOULARDII 250 MG CAPSULE (FLORASTOR) PO SCH (21:00)
[2021-05-27] MEDS: LACTOBACILLUS RHAMNOSUS GG 1 CAP CAPSULE PO SCH (22:54)
[2021-05-27] MEDS: CARVEDILOL 6.25 MG TABLET (COREG) PO SCH (22:55)
[2021-05-28] VITALS (7 sets, daily range): BP systolic 115–133
[2021-05-28] MEDS: CEFEPIME 1 GM in D5W 50 ML IV SCH ×3 (02:21→20:51)
[2021-05-28] MEDS: VANCOMYCIN HCL 1.25 GM/NS 250 ML IV SCH ×3 (04:29→23:57)
[2021-05-28] MEDS: ALBUTEROL MDI INHALATION 8 GM INH INH SCH ×7 (04:37→23:50)
[2021-05-28] MEDS: NORMAL SALINE 5 ML DISP.SYRIN IVF SCH ×3 (05:24→23:55)
[2021-05-28] MEDS: INSULIN REGULAR, HUMAN 100 UNITS/ML, 10 ML VIAL (humuLIN R) SUBCUT PRN ×3 (05:27→17:36)
[2021-05-28 08:18] LABS: BASOPHILS % (AUTO) 0.4 % (0.0-2.0); EOSINOPHILS # (AUTO) 1.4 K/uL (0.0-0.4); HEMATOCRIT 32.8 % (36-48); HEMOGLOBIN 10.8 g/dL (12.0-16.0); LYMPHOCYTES # (AUTO) 2.2 K/uL (1.0-5.5); LYMPHOCYTES % (AUTO) 19.3 % (20.5-51.5); MEAN CORPUSCULAR HEMOGLOBIN 31 pg (27-31); MEAN CORPUSCULAR HGB CONC 33 % (32-36); MEAN CORPUSCULAR VOLUME 95 fL (79.0-98.0); MONOCYTES # (AUTO) 0.6 K/uL (0.0-1.0); MONOCYTES % (AUTO) 5.1 % (1.7-9.3); NEUTROPHILS # (AUTO) 7.2 K/uL (1.8-7.7); NEUTROPHILS % (AUTO) 63.2 % (40.0-70.0); PLATELET COUNT (AUTO) 379 K/uL (130-430); RED BLOOD CELL COUNT(AUTO) 3.47 MIL/uL (4.2-6.2); RED CELL DISTRIBUTION WIDTH 17.4 % (9.0-15.0); WHITE BLOOD COUNT (AUTO) 11.4 K/uL (4.8-10.8)
[2021-05-28 09:20] LABS: C-REACTIVE PROTEIN QUANT 11.3 mg/dL (0-0.5); CALCIUM 9.4 mg/dL (8.4-11.0); CREATININE 0.39 mg/dL (0.55-1.30); POTASSIUM 3.5 mmol/L (3.5-5.1)
[2021-05-28] MEDS: ENOXAPARIN SODIUM 100 MG/ML SYRINGE SUBCUT SCH ×2 (12:00→21:26)
[2021-05-28] MEDS: PANTOPRAZOLE SODIUM 40 MG/VIAL (PROTONIX) IVP SCH (12:04)
[2021-05-28] MEDS: POTASSIUM CHLORIDE 20 MEQ/PKT PACKET GT SCH ×2 (12:04→20:52)
[2021-05-28] MEDS: LACTOBACILLUS RHAMNOSUS GG 1 CAP CAPSULE PO SCH ×2 (12:05→20:52)
[2021-05-28] MEDS: COLCHICINE 0.6 MG TABLET PO SCH ×2 (12:05→20:52)
[2021-05-28] MEDS: CHOLECALCIFEROL (VITAMIN D3) 5,000 UNIT TABLET PO SCH (12:06)
[2021-05-28] MEDS: metFORMIN HCL 500 MG TABLET GT SCH ×2 (12:06→20:52)
[2021-05-28] MEDS: CARVEDILOL 6.25 MG TABLET (COREG) PO SCH ×2 (12:06→20:53)
[2021-05-28 12:07] LABS: ERYTHROCYTE SEDIMENTATION RATE 96 MM/HR (0-20)
[2021-05-28] MEDS: ASCORBIC ACID 500 MG TABLET PO SCH (12:07)
[2021-05-28] MEDS: FLUCONAZOLE 200 mg/ NS 100 ML IV SCH (12:07)
[2021-05-28] MEDS: BALSAM PERU/CASTOR OIL 60 GM OINT...G. TP SCH (12:29)
[2021-05-29] MEDS: INSULIN REGULAR, HUMAN 100 UNITS/ML, 10 ML VIAL (humuLIN R) SUBCUT PRN ×4 (00:02→18:07)
[2021-05-29 00:30] VITALS: BP_SYST 110
[2021-05-29] MEDS: ALBUTEROL MDI INHALATION 8 GM INH INH SCH ×5 (04:01→23:19)
[2021-05-29] MEDS: NORMAL SALINE 5 ML DISP.SYRIN IVF SCH ×2 (05:49→15:03)
[2021-05-29 07:10] LABS: BASOPHILS % (AUTO) 0.3 % (0.0-2.0); EOSINOPHILS # (AUTO) 1.4 K/uL (0.0-0.4); EOSINOPHILS % (AUTO) 10.9 % (0.0-4.0); HEMATOCRIT 33.4 % (36-48); HEMOGLOBIN 10.9 g/dL (12.0-16.0); LYMPHOCYTES # (AUTO) 2.8 K/uL (1.0-5.5); LYMPHOCYTES % (AUTO) 22.1 % (20.5-51.5); MEAN CORPUSCULAR HEMOGLOBIN 31 pg (27-31); MEAN CORPUSCULAR HGB CONC 33 % (32-36); MEAN CORPUSCULAR VOLUME 94 fL (79.0-98.0); MONOCYTES # (AUTO) 0.5 K/uL (0.0-1.0); MONOCYTES % (AUTO) 4.2 % (1.7-9.3); NEUTROPHILS % (AUTO) 62.5 % (40.0-70.0); PLATELET COUNT (AUTO) 433 K/uL (130-430); RED BLOOD CELL COUNT(AUTO) 3.56 MIL/uL (4.2-6.2); RED CELL DISTRIBUTION WIDTH 17.2 % (9.0-15.0); WHITE BLOOD COUNT (AUTO) 12.8 K/uL (4.8-10.8)
[2021-05-29 08:00] VITALS: BP_SYST 118
[2021-05-29 08:09] LABS: ALBUMIN 2.2 g/dL (3.4-4.8); C-REACTIVE PROTEIN QUANT 5.6 mg/dL (0-0.5); CALCIUM 9.7 mg/dL (8.4-11.0); CREATININE 0.45 mg/dL (0.55-1.30); POTASSIUM 3.8 mmol/L (3.5-5.1); TOTAL BILIRUBIN 0.3 mg/dL (0.0-1.0)
[2021-05-29] MEDS: VANCOMYCIN HCL 1.25 GM/NS 250 ML IV SCH ×2 (08:21→15:00)
[2021-05-29 10:30] LABS: ERYTHROCYTE SEDIMENTATION RATE 103 MM/HR (0-20)
[2021-05-29] MEDS: PANTOPRAZOLE SODIUM 40 MG/VIAL (PROTONIX) IVP SCH (10:42)
[2021-05-29] MEDS: LACTOBACILLUS RHAMNOSUS GG 1 CAP CAPSULE PO SCH ×2 (10:47→20:41)
[2021-05-29] MEDS: CHOLECALCIFEROL (VITAMIN D3) 5,000 UNIT TABLET PO SCH (10:48)
[2021-05-29] MEDS: CARVEDILOL 6.25 MG TABLET (COREG) PO SCH ×2 (10:49→20:41)
[2021-05-29] MEDS: COLCHICINE 0.6 MG TABLET PO SCH ×2 (10:49→20:39)
[2021-05-29] MEDS: metFORMIN HCL 500 MG TABLET GT SCH ×2 (10:49→20:38)
[2021-05-29] MEDS: ASCORBIC ACID 500 MG TABLET PO SCH (10:50)
[2021-05-29] MEDS: POTASSIUM CHLORIDE 20 MEQ/PKT PACKET GT SCH ×2 (10:50→20:40)
[2021-05-29] MEDS: CEFEPIME 1 GM in D5W 50 ML IV SCH ×2 (10:52→20:27)
[2021-05-29] MEDS: FLUCONAZOLE 200 mg/ NS 100 ML IV SCH ×2 (10:53→10:54)
[2021-05-29] MEDS: BALSAM PERU/CASTOR OIL 60 GM OINT...G. TP SCH (10:54)
[2021-05-29] MEDS: ENOXAPARIN SODIUM 100 MG/ML SYRINGE SUBCUT SCH ×2 (10:58→21:33)
[2021-05-29 11:39] VITALS: BP_SYST 136
[2021-05-29 16:48] VITALS: BP_SYST 135
[2021-05-29 19:00] VITALS: BP_SYST 141
[2021-05-30 01:34] VITALS: BP_SYST 116
[2021-05-30] MEDS: VANCOMYCIN HCL 1.25 GM/NS 250 ML IV SCH ×3 (02:51→17:37)
[2021-05-30] MEDS: NORMAL SALINE 5 ML DISP.SYRIN IVF SCH ×4 (02:52→21:34)
[2021-05-30] MEDS: ALBUTEROL MDI INHALATION 8 GM INH INH SCH ×6 (04:18→23:36)
[2021-05-30 07:14] LABS: BASOPHILS % (AUTO) 0.3 % (0.0-2.0); EOSINOPHILS # (AUTO) 1.4 K/uL (0.0-0.4); EOSINOPHILS % (AUTO) 14.5 % (0.0-4.0); HEMATOCRIT 33.6 % (36-48); LYMPHOCYTES # (AUTO) 2.3 K/uL (1.0-5.5); LYMPHOCYTES % (AUTO) 23.6 % (20.5-51.5); MEAN CORPUSCULAR HEMOGLOBIN 31 pg (27-31); MEAN CORPUSCULAR HGB CONC 33 % (32-36); MEAN CORPUSCULAR VOLUME 95 fL (79.0-98.0); MONOCYTES # (AUTO) 0.5 K/uL (0.0-1.0); MONOCYTES % (AUTO) 5.1 % (1.7-9.3); NEUTROPHILS # (AUTO) 5.6 K/uL (1.8-7.7); NEUTROPHILS % (AUTO) 56.5 % (40.0-70.0); PLATELET COUNT (AUTO) 404 K/uL (130-430); RED BLOOD CELL COUNT(AUTO) 3.55 MIL/uL (4.2-6.2); RED CELL DISTRIBUTION WIDTH 17.1 % (9.0-15.0); WHITE BLOOD COUNT (AUTO) 9.8 K/uL (4.8-10.8)
[2021-05-30 07:19] LABS: C-REACTIVE PROTEIN QUANT 3.4 mg/dL (0-0.5); CALCIUM 9.6 mg/dL (8.4-11.0); CREATININE 0.36 mg/dL (0.55-1.30); POTASSIUM 3.5 mmol/L (3.5-5.1)
[2021-05-30 08:00] VITALS: BP_SYST 123
[2021-05-30 08:40] LABS: ERYTHROCYTE SEDIMENTATION RATE 99 MM/HR (0-20)
[2021-05-30] MEDS: metFORMIN HCL 500 MG TABLET GT SCH ×2 (09:11→21:33)
[2021-05-30] MEDS: PANTOPRAZOLE SODIUM 40 MG/VIAL (PROTONIX) IVP SCH (09:11)
[2021-05-30] MEDS: CARVEDILOL 6.25 MG TABLET (COREG) PO SCH ×2 (09:14→21:27)
[2021-05-30] MEDS: COLCHICINE 0.6 MG TABLET PO SCH ×2 (09:15→21:27)
[2021-05-30] MEDS: POTASSIUM CHLORIDE 20 MEQ/PKT PACKET GT SCH ×2 (09:16→21:27)
[2021-05-30] MEDS: LACTOBACILLUS RHAMNOSUS GG 1 CAP CAPSULE PO SCH ×2 (09:16→21:27)
[2021-05-30] MEDS: CEFEPIME 1 GM in D5W 50 ML IV SCH ×2 (09:17→21:28)
[2021-05-30] MEDS: BALSAM PERU/CASTOR OIL 60 GM OINT...G. TP SCH (09:17)
[2021-05-30] MEDS: ENOXAPARIN SODIUM 100 MG/ML SYRINGE SUBCUT SCH ×2 (09:18→21:26)
[2021-05-30] MEDS: CHOLECALCIFEROL (VITAMIN D3) 5,000 UNIT TABLET PO SCH (09:22)
[2021-05-30] MEDS: ASCORBIC ACID 500 MG TABLET PO SCH (09:23)
[2021-05-30] MEDS: FLUCONAZOLE 200 mg/ NS 100 ML IV SCH (12:14)
[2021-05-30 12:36] VITALS: BP_SYST 129
[2021-05-30 16:33] VITALS: BP_SYST 128
[2021-05-30] MEDS: INSULIN REGULAR, HUMAN 100 UNITS/ML, 10 ML VIAL (humuLIN R) SUBCUT PRN (17:47)
[2021-05-30 19:00] VITALS: BP_SYST 129
[2021-05-30 20:00] VITALS: BP_SYST 129
[2021-05-31] VITALS (7 sets, daily range): BP systolic 124–127
[2021-05-31] MEDS: INSULIN REGULAR, HUMAN 100 UNITS/ML, 10 ML VIAL (humuLIN R) SUBCUT PRN ×2 (02:20→06:20)
[2021-05-31] MEDS: VANCOMYCIN HCL 1.25 GM/NS 250 ML IV SCH ×3 (02:22→17:20)
[2021-05-31] MEDS: ALBUTEROL MDI INHALATION 8 GM INH INH SCH ×5 (04:56→20:54)
[2021-05-31] MEDS: NORMAL SALINE 5 ML DISP.SYRIN IVF SCH ×3 (06:16→21:08)
[2021-05-31] MEDS: PANTOPRAZOLE SODIUM 40 MG/VIAL (PROTONIX) IVP SCH (08:43)
[2021-05-31] MEDS: metFORMIN HCL 500 MG TABLET GT SCH ×2 (08:44→20:52)
[2021-05-31] MEDS: COLCHICINE 0.6 MG TABLET PO SCH ×2 (08:44→20:50)
[2021-05-31] MEDS: LACTOBACILLUS RHAMNOSUS GG 1 CAP CAPSULE PO SCH ×2 (08:45→20:52)
[2021-05-31] MEDS: ASCORBIC ACID 500 MG TABLET PO SCH (08:45)
[2021-05-31] MEDS: CHOLECALCIFEROL (VITAMIN D3) 5,000 UNIT TABLET PO SCH (08:46)
[2021-05-31] MEDS: CARVEDILOL 6.25 MG TABLET (COREG) PO SCH ×2 (08:46→20:51)
[2021-05-31] MEDS: ENOXAPARIN SODIUM 100 MG/ML SYRINGE SUBCUT SCH ×2 (08:48→20:50)
[2021-05-31] MEDS: BALSAM PERU/CASTOR OIL 60 GM OINT...G. TP SCH (08:48)
[2021-05-31] MEDS: POTASSIUM CHLORIDE 20 MEQ/PKT PACKET GT SCH ×2 (08:51→20:50)
[2021-06-01] MEDS: ALBUTEROL MDI INHALATION 8 GM INH INH SCH ×6 (00:07→20:29)
[2021-06-01] MEDS: INSULIN REGULAR, HUMAN 100 UNITS/ML, 10 ML VIAL (humuLIN R) SUBCUT PRN ×4 (00:32→17:27)
[2021-06-01 00:39] VITALS: BP_SYST 128
[2021-06-01] MEDS: VANCOMYCIN HCL 1.25 GM/NS 250 ML IV SCH ×3 (01:54→17:37)
[2021-06-01] MEDS: NORMAL SALINE 5 ML DISP.SYRIN IVF SCH ×3 (06:23→22:00)
[2021-06-01 08:10] VITALS: BP_SYST 125
[2021-06-01] MEDS: COLCHICINE 0.6 MG TABLET PO SCH ×2 (09:57→21:56)
[2021-06-01] MEDS: CARVEDILOL 6.25 MG TABLET (COREG) PO SCH ×2 (09:57→22:06)
[2021-06-01] MEDS: POTASSIUM CHLORIDE 20 MEQ/PKT PACKET GT SCH ×2 (09:57→21:57)
[2021-06-01] MEDS: LACTOBACILLUS RHAMNOSUS GG 1 CAP CAPSULE PO SCH ×2 (09:57→21:56)
[2021-06-01] MEDS: CHOLECALCIFEROL (VITAMIN D3) 5,000 UNIT TABLET PO SCH (09:57)
[2021-06-01] MEDS: PANTOPRAZOLE SODIUM 40 MG/VIAL (PROTONIX) IVP SCH (09:57)
[2021-06-01] MEDS: ENOXAPARIN SODIUM 100 MG/ML SYRINGE SUBCUT SCH ×2 (09:58→21:59)
[2021-06-01] MEDS: metFORMIN HCL 500 MG TABLET GT SCH ×2 (09:58→21:56)
[2021-06-01] MEDS: BALSAM PERU/CASTOR OIL 60 GM OINT...G. TP SCH (09:59)
[2021-06-01] MEDS: ASCORBIC ACID 500 MG TABLET PO SCH (10:00)
[2021-06-01 12:00] VITALS: BP_SYST 124
[2021-06-01 17:00] VITALS: BP_SYST 116
[2021-06-01 19:00] VITALS: BP_SYST 119
[2021-06-01 20:00] VITALS: BP_SYST 119
[2021-06-02 01:15] VITALS: BP_SYST 123
[2021-06-02] MEDS: VANCOMYCIN HCL 1.25 GM/NS 250 ML IV SCH ×3 (02:00→17:28)
[2021-06-02] MEDS: ALBUTEROL MDI INHALATION 8 GM INH INH SCH ×9 (05:48→23:02)
[2021-06-02] MEDS: NORMAL SALINE 5 ML DISP.SYRIN IVF SCH ×3 (06:26→21:54)
[2021-06-02 07:20] VITALS: BP_SYST 124
[2021-06-02] MEDS: COLCHICINE 0.6 MG TABLET PO SCH ×2 (09:49→21:49)
[2021-06-02] MEDS: CHOLECALCIFEROL (VITAMIN D3) 5,000 UNIT TABLET PO SCH (09:49)
[2021-06-02] MEDS: metFORMIN HCL 500 MG TABLET GT SCH ×2 (09:50→21:49)
[2021-06-02] MEDS: POTASSIUM CHLORIDE 20 MEQ/PKT PACKET GT SCH ×2 (09:50→21:50)
[2021-06-02] MEDS: ASCORBIC ACID 500 MG TABLET PO SCH (09:50)
[2021-06-02] MEDS: LACTOBACILLUS RHAMNOSUS GG 1 CAP CAPSULE PO SCH ×2 (09:50→21:48)
[2021-06-02] MEDS: CARVEDILOL 6.25 MG TABLET (COREG) PO SCH ×2 (09:51→21:49)
[2021-06-02] MEDS: BALSAM PERU/CASTOR OIL 60 GM OINT...G. TP SCH (09:52)
[2021-06-02] MEDS: ENOXAPARIN SODIUM 100 MG/ML SYRINGE SUBCUT SCH ×2 (09:53→21:52)
[2021-06-02] MEDS: PANTOPRAZOLE SODIUM 40 MG/VIAL (PROTONIX) IVP SCH (10:00)
[2021-06-02] MEDS: INSULIN REGULAR, HUMAN 100 UNITS/ML, 10 ML VIAL (humuLIN R) SUBCUT PRN (11:18)
[2021-06-02 12:00] VITALS: BP_SYST 126
[2021-06-02 20:00] VITALS: BP_SYST 116
[2021-06-03 00:20] VITALS: BP_SYST 123
[2021-06-03] MEDS: VANCOMYCIN HCL 1.25 GM/NS 250 ML IV SCH (01:10)
[2021-06-03] MEDS: NORMAL SALINE 5 ML DISP.SYRIN IVF SCH ×3 (06:00→21:44)
[2021-06-03 08:00] VITALS: BP_SYST 132
[2021-06-03] MEDS: ALBUTEROL MDI INHALATION 8 GM INH INH SCH ×5 (08:11→23:00)
[2021-06-03] MEDS: CHOLECALCIFEROL (VITAMIN D3) 5,000 UNIT TABLET PO SCH (09:15)
[2021-06-03] MEDS: PANTOPRAZOLE SODIUM 40 MG/VIAL (PROTONIX) IVP SCH (09:15)
[2021-06-03] MEDS: metFORMIN HCL 500 MG TABLET GT SCH ×2 (09:16→21:45)
[2021-06-03] MEDS: POTASSIUM CHLORIDE 20 MEQ/PKT PACKET GT SCH ×2 (09:16→21:46)
[2021-06-03] MEDS: LACTOBACILLUS RHAMNOSUS GG 1 CAP CAPSULE PO SCH ×2 (09:16→21:45)
[2021-06-03] MEDS: CARVEDILOL 6.25 MG TABLET (COREG) PO SCH ×2 (09:21→21:46)
[2021-06-03] MEDS: ASCORBIC ACID 500 MG TABLET PO SCH (09:21)
[2021-06-03] MEDS: ENOXAPARIN SODIUM 100 MG/ML SYRINGE SUBCUT SCH ×2 (09:23→21:44)
[2021-06-03] MEDS: COLCHICINE 0.6 MG TABLET PO SCH ×2 (09:28→21:45)
[2021-06-03 10:46] VITALS: BP_SYST 132
[2021-06-03] MEDS: BALSAM PERU/CASTOR OIL 60 GM OINT...G. TP SCH (11:21)
[2021-06-03] MEDS: LOPERAMIDE HCL 2 MG CAPSULE PO PRN (12:15)
[2021-06-03 13:11] VITALS: BP_SYST 135
[2021-06-03 18:06] VITALS: BP_SYST 136
[2021-06-03 20:00] VITALS: BP_SYST 120
[2021-06-04] MEDS: INSULIN REGULAR, HUMAN 100 UNITS/ML, 10 ML VIAL (humuLIN R) SUBCUT PRN ×2 (00:27→06:23)
[2021-06-04 00:28] VITALS: BP_SYST 117
[2021-06-04] MEDS: LOPERAMIDE HCL 2 MG CAPSULE PO PRN (01:15)
[2021-06-04] MEDS: ALBUTEROL MDI INHALATION 8 GM INH INH SCH ×6 (03:00→23:23)
[2021-06-04] MEDS: NORMAL SALINE 5 ML DISP.SYRIN IVF SCH ×3 (06:23→22:07)
[2021-06-04 06:51] LABS: BASOPHILS % (AUTO) 0.3 % (0.0-2.0); EOSINOPHILS # (AUTO) 1.2 K/uL (0.0-0.4); EOSINOPHILS % (AUTO) 11.1 % (0.0-4.0); HEMATOCRIT 33.2 % (36-48); HEMOGLOBIN 11.2 g/dL (12.0-16.0); LYMPHOCYTES # (AUTO) 2.6 K/uL (1.0-5.5); LYMPHOCYTES % (AUTO) 24.8 % (20.5-51.5); MEAN CORPUSCULAR HEMOGLOBIN 32 pg (27-31); MEAN CORPUSCULAR HGB CONC 34 % (32-36); MEAN CORPUSCULAR VOLUME 95 fL (79.0-98.0); MONOCYTES # (AUTO) 0.6 K/uL (0.0-1.0); MONOCYTES % (AUTO) 5.9 % (1.7-9.3); NEUTROPHILS # (AUTO) 6.1 K/uL (1.8-7.7); NEUTROPHILS % (AUTO) 57.9 % (40.0-70.0); PLATELET COUNT (AUTO) 429 K/uL (130-430); RED BLOOD CELL COUNT(AUTO) 3.48 MIL/uL (4.2-6.2); RED CELL DISTRIBUTION WIDTH 17.1 % (9.0-15.0); WHITE BLOOD COUNT (AUTO) 10.6 K/uL (4.8-10.8)
[2021-06-04 07:00] VITALS: BP_SYST 128
[2021-06-04 07:04] LABS: CALCIUM 9.3 mg/dL (8.4-11.0); CREATININE 0.48 mg/dL (0.55-1.30); POTASSIUM 3.8 mmol/L (3.5-5.1)
[2021-06-04 08:00] VITALS: BP_SYST 128
[2021-06-04] MEDS: ENOXAPARIN SODIUM 100 MG/ML SYRINGE SUBCUT SCH ×2 (09:00→21:56)
[2021-06-04] MEDS: BALSAM PERU/CASTOR OIL 60 GM OINT...G. TP SCH (09:00)
[2021-06-04] MEDS ORDERED: VANCOMYCIN HCL 1,000 MG in NS 250 ML IV SCH (10:00)
[2021-06-04] MEDS: CHOLECALCIFEROL (VITAMIN D3) 5,000 UNIT TABLET PO SCH (10:51)
[2021-06-04] MEDS: ASCORBIC ACID 500 MG TABLET PO SCH (10:52)
[2021-06-04] MEDS: COLCHICINE 0.6 MG TABLET PO SCH ×2 (10:52→21:57)
[2021-06-04] MEDS: LACTOBACILLUS RHAMNOSUS GG 1 CAP CAPSULE PO SCH ×2 (10:52→21:57)
[2021-06-04] MEDS: POTASSIUM CHLORIDE 20 MEQ/PKT PACKET GT SCH ×2 (10:52→21:58)
[2021-06-04] MEDS: metFORMIN HCL 500 MG TABLET GT SCH ×2 (10:53→21:56)
[2021-06-04] MEDS: CARVEDILOL 6.25 MG TABLET (COREG) PO SCH ×2 (10:54→22:07)
[2021-06-04] MEDS: PANTOPRAZOLE SODIUM 40 MG/VIAL (PROTONIX) IVP SCH (10:56)
[2021-06-04 12:00] VITALS: BP_SYST 110; BP_SYST 119
[2021-06-04 16:00] VITALS: BP_SYST 125
[2021-06-04 20:00] VITALS: BP_SYST 120
[2021-06-05] MEDS: LOPERAMIDE HCL 2 MG CAPSULE PO PRN ×3 (00:55→23:39)
[2021-06-05 01:04] VITALS: BP_SYST 106
[2021-06-05] MEDS: INSULIN REGULAR, HUMAN 100 UNITS/ML, 10 ML VIAL (humuLIN R) SUBCUT PRN ×2 (06:32→13:42)
[2021-06-05] MEDS: NORMAL SALINE 5 ML DISP.SYRIN IVF SCH ×3 (06:34→23:29)
[2021-06-05 07:00] VITALS: BP_SYST 121
[2021-06-05] MEDS: ALBUTEROL MDI INHALATION 8 GM INH INH SCH ×5 (08:21→23:21)
[2021-06-05] MEDS: ENOXAPARIN SODIUM 100 MG/ML SYRINGE SUBCUT SCH ×2 (09:26→20:41)
[2021-06-05] MEDS: ASCORBIC ACID 500 MG TABLET PO SCH (09:27)
[2021-06-05] MEDS: CARVEDILOL 6.25 MG TABLET (COREG) PO SCH ×2 (09:28→20:44)
[2021-06-05] MEDS: LACTOBACILLUS RHAMNOSUS GG 1 CAP CAPSULE PO SCH ×2 (09:31→20:43)
[2021-06-05] MEDS: metFORMIN HCL 500 MG TABLET GT SCH ×2 (09:31→20:40)
[2021-06-05] MEDS: PANTOPRAZOLE SODIUM 40 MG/VIAL (PROTONIX) IVP SCH (09:31)
[2021-06-05] MEDS: POTASSIUM CHLORIDE 20 MEQ/PKT PACKET GT SCH ×2 (09:31→20:39)
[2021-06-05] MEDS: COLCHICINE 0.6 MG TABLET PO SCH ×2 (09:37→20:44)
[2021-06-05] MEDS: CHOLECALCIFEROL (VITAMIN D3) 5,000 UNIT TABLET PO SCH (09:37)
[2021-06-05] MEDS: BALSAM PERU/CASTOR OIL 60 GM OINT...G. TP SCH (09:38)
[2021-06-05 11:29] VITALS: BP_SYST 123
[2021-06-05 16:00] VITALS: BP_SYST 124
[2021-06-05 19:00] VITALS: BP_SYST 127
[2021-06-05 20:00] VITALS: BP_SYST 127
[2021-06-05] MEDS: ACETAMINOPHEN 650 MG/20.3 ML UDC GT PRN (20:43)
[2021-06-06] MEDS: INSULIN REGULAR, HUMAN 100 UNITS/ML, 10 ML VIAL (humuLIN R) SUBCUT PRN ×2 (00:12→07:07)
[2021-06-06] MEDS: ALBUTEROL MDI INHALATION 8 GM INH INH SCH ×4 (03:22→16:31)
[2021-06-06] MEDS: NORMAL SALINE 5 ML DISP.SYRIN IVF SCH ×3 (06:52→21:38)
[2021-06-06 07:00] VITALS: BP_SYST 127
[2021-06-06 08:00] VITALS: BP_SYST 127
[2021-06-06] MEDS: ENOXAPARIN SODIUM 100 MG/ML SYRINGE SUBCUT SCH ×2 (08:30→21:35)
[2021-06-06] MEDS: LACTOBACILLUS RHAMNOSUS GG 1 CAP CAPSULE PO SCH ×2 (08:31→21:36)
[2021-06-06] MEDS: metFORMIN HCL 500 MG TABLET GT SCH ×2 (08:31→21:36)
[2021-06-06] MEDS: ASCORBIC ACID 500 MG TABLET PO SCH (08:31)
[2021-06-06] MEDS: POTASSIUM CHLORIDE 20 MEQ/PKT PACKET GT SCH ×2 (08:31→21:36)
[2021-06-06] MEDS: COLCHICINE 0.6 MG TABLET PO SCH ×2 (08:32→21:36)
[2021-06-06] MEDS: LOPERAMIDE HCL 2 MG CAPSULE PO PRN (08:32)
[2021-06-06] MEDS: CHOLECALCIFEROL (VITAMIN D3) 5,000 UNIT TABLET PO SCH (08:32)
[2021-06-06] MEDS: CARVEDILOL 6.25 MG TABLET (COREG) PO SCH ×2 (08:38→21:37)
[2021-06-06] MEDS: PANTOPRAZOLE SODIUM 40 MG/VIAL (PROTONIX) IVP SCH (08:41)
[2021-06-06] MEDS: BALSAM PERU/CASTOR OIL 60 GM OINT...G. TP SCH (08:54)
[2021-06-06] MEDS ORDERED: ASCORBIC ACID 500 MG TABLET PO ONE (09:00)
[2021-06-06 12:42] VITALS: BP_SYST 128
[2021-06-06 16:59] VITALS: BP_SYST 126
[2021-06-06 20:00] VITALS: BP_SYST 129
[2021-06-07] MEDS: INSULIN REGULAR, HUMAN 100 UNITS/ML, 10 ML VIAL (humuLIN R) SUBCUT PRN (00:34)
[2021-06-07 02:19] VITALS: BP_SYST 124
[2021-06-07] MEDS: NORMAL SALINE 5 ML DISP.SYRIN IVF SCH ×3 (06:40→22:02)
[2021-06-07 09:13] VITALS: BP_SYST 111
[2021-06-07] MEDS: PANTOPRAZOLE SODIUM 40 MG/VIAL (PROTONIX) IVP SCH (10:22)
[2021-06-07] MEDS: COLCHICINE 0.6 MG TABLET PO SCH ×2 (10:23→22:01)
[2021-06-07] MEDS: metFORMIN HCL 500 MG TABLET GT SCH ×2 (10:23→22:00)
[2021-06-07] MEDS: POTASSIUM CHLORIDE 20 MEQ/PKT PACKET GT SCH ×2 (10:23→22:00)
[2021-06-07] MEDS: LACTOBACILLUS RHAMNOSUS GG 1 CAP CAPSULE PO SCH ×2 (10:23→22:01)
[2021-06-07] MEDS: CARVEDILOL 6.25 MG TABLET (COREG) PO SCH ×2 (10:23→22:02)
[2021-06-07] MEDS: ENOXAPARIN SODIUM 100 MG/ML SYRINGE SUBCUT SCH ×2 (10:24→22:03)
[2021-06-07] MEDS: ASCORBIC ACID 500 MG TABLET PO SCH (10:24)
[2021-06-07] MEDS: BALSAM PERU/CASTOR OIL 60 GM OINT...G. TP SCH (10:26)
[2021-06-07 12:53] VITALS: BP_SYST 126
[2021-06-07 16:00] VITALS: BP_SYST 129
[2021-06-07 20:00] VITALS: BP_SYST 125
[2021-06-08] MEDS: INSULIN REGULAR, HUMAN 100 UNITS/ML, 10 ML VIAL (humuLIN R) SUBCUT PRN ×2 (00:52→17:54)
[2021-06-08 01:55] VITALS: BP_SYST 133
[2021-06-08] MEDS: LOPERAMIDE HCL 2 MG CAPSULE PO PRN ×4 (04:55→21:38)
[2021-06-08] MEDS: NORMAL SALINE 5 ML DISP.SYRIN IVF SCH ×3 (05:19→21:39)
[2021-06-08 08:00] VITALS: BP_SYST 142
[2021-06-08] MEDS: PANTOPRAZOLE SODIUM 40 MG/VIAL (PROTONIX) IVP SCH (09:35)
[2021-06-08] MEDS: CHOLECALCIFEROL (VITAMIN D3) 2,000 UNIT TABLET PO SCH (09:35)
[2021-06-08] MEDS: metFORMIN HCL 500 MG TABLET GT SCH ×2 (09:36→21:37)
[2021-06-08] MEDS: ASCORBIC ACID 500 MG TABLET PO SCH (09:36)
[2021-06-08] MEDS: LACTOBACILLUS RHAMNOSUS GG 1 CAP CAPSULE PO SCH ×2 (09:36→21:38)
[2021-06-08] MEDS: POTASSIUM CHLORIDE 20 MEQ/PKT PACKET GT SCH ×2 (09:37→21:37)
[2021-06-08] MEDS: COLCHICINE 0.6 MG TABLET PO SCH ×2 (09:37→21:38)
[2021-06-08] MEDS: CARVEDILOL 6.25 MG TABLET (COREG) PO SCH ×2 (09:38→21:38)
[2021-06-08] MEDS: ENOXAPARIN SODIUM 100 MG/ML SYRINGE SUBCUT SCH ×2 (09:39→21:41)
[2021-06-08] MEDS: BALSAM PERU/CASTOR OIL 60 GM OINT...G. TP SCH (09:39)
[2021-06-08 12:14] VITALS: BP_SYST 137
[2021-06-08 16:45] VITALS: BP_SYST 129
[2021-06-09] VITALS (7 sets, daily range): BP systolic 112–155
[2021-06-09] MEDS: NORMAL SALINE 5 ML DISP.SYRIN IVF SCH ×3 (06:31→20:53)
[2021-06-09] MEDS: LANSOPRAZOLE 30 MG CAPSULE.DR GT SCH (06:31)
[2021-06-09] MEDS ORDERED: PANTOPRAZOLE GRANULES PACKET 40 MG GT SCH (09:00)
[2021-06-09] MEDS: POTASSIUM CHLORIDE 20 MEQ/PKT PACKET GT SCH ×2 (10:02→20:50)
[2021-06-09] MEDS: ASCORBIC ACID 500 MG TABLET PO SCH (10:02)
[2021-06-09] MEDS: ENOXAPARIN SODIUM 100 MG/ML SYRINGE SUBCUT SCH ×2 (10:03→20:53)
[2021-06-09] MEDS: metFORMIN HCL 500 MG TABLET GT SCH ×2 (10:04→20:50)
[2021-06-09] MEDS: LOPERAMIDE HCL 2 MG CAPSULE PO PRN ×2 (10:04→23:37)
[2021-06-09] MEDS: CHOLECALCIFEROL (VITAMIN D3) 2,000 UNIT TABLET PO SCH (10:04)
[2021-06-09] MEDS: LACTOBACILLUS RHAMNOSUS GG 1 CAP CAPSULE PO SCH ×2 (10:04→20:49)
[2021-06-09] MEDS: CARVEDILOL 6.25 MG TABLET (COREG) PO SCH ×2 (10:05→20:51)
[2021-06-09] MEDS: COLCHICINE 0.6 MG TABLET PO SCH ×2 (10:05→20:49)
[2021-06-09] MEDS: BALSAM PERU/CASTOR OIL 60 GM OINT...G. TP SCH (10:06)
[2021-06-09] MEDS: INSULIN REGULAR, HUMAN 100 UNITS/ML, 10 ML VIAL (humuLIN R) SUBCUT PRN (23:36)
[2021-06-10] VITALS: BP_SYST 123
[2021-06-10] MEDS: NORMAL SALINE 5 ML DISP.SYRIN IVF SCH ×3 (06:00→21:24)
[2021-06-10] MEDS: LANSOPRAZOLE 30 MG CAPSULE.DR GT SCH (06:30)
[2021-06-10 07:39] VITALS: BP_SYST 119
[2021-06-10] MEDS: metFORMIN HCL 500 MG TABLET GT SCH ×2 (10:03→21:20)
[2021-06-10] MEDS: ENOXAPARIN SODIUM 100 MG/ML SYRINGE SUBCUT SCH ×2 (10:04→21:26)
[2021-06-10] MEDS: ASCORBIC ACID 500 MG TABLET PO SCH (10:04)
[2021-06-10] MEDS: COLCHICINE 0.6 MG TABLET PO SCH ×2 (10:05→21:20)
[2021-06-10] MEDS: LACTOBACILLUS RHAMNOSUS GG 1 CAP CAPSULE PO SCH ×2 (10:05→21:21)
[2021-06-10] MEDS: CHOLECALCIFEROL (VITAMIN D3) 2,000 UNIT TABLET PO SCH (10:05)
[2021-06-10] MEDS: POTASSIUM CHLORIDE 20 MEQ/PKT PACKET GT SCH ×2 (10:05→21:24)
[2021-06-10] MEDS: CARVEDILOL 6.25 MG TABLET (COREG) PO SCH ×2 (10:06→21:23)
[2021-06-10] MEDS: BALSAM PERU/CASTOR OIL 60 GM OINT...G. TP SCH (10:07)
[2021-06-10 12:00] VITALS: BP_SYST 121
[2021-06-10 15:32] VITALS: BP_SYST 110
[2021-06-11 01:33] VITALS: BP_SYST 125
[2021-06-11] MEDS: NORMAL SALINE 5 ML DISP.SYRIN IVF SCH ×4 (06:00→22:00)
[2021-06-11] MEDS: LANSOPRAZOLE 30 MG CAPSULE.DR GT SCH (06:52)
[2021-06-11 07:45] LABS: BASOPHILS # (AUTO) 0.1 K/uL (0.0-0.2); EOSINOPHILS # (AUTO) 0.8 K/uL (0.0-0.4); EOSINOPHILS % (AUTO) 10.7 % (0.0-4.0); HEMATOCRIT 35.9 % (36-48); HEMOGLOBIN 11.9 g/dL (12.0-16.0); LYMPHOCYTES % (AUTO) 38.2 % (20.5-51.5); MEAN CORPUSCULAR HEMOGLOBIN 31 pg (27-31); MEAN CORPUSCULAR HGB CONC 33 % (32-36); MEAN CORPUSCULAR VOLUME 95 fL (79.0-98.0); MONOCYTES # (AUTO) 0.6 K/uL (0.0-1.0); MONOCYTES % (AUTO) 7.6 % (1.7-9.3); NEUTROPHILS # (AUTO) 3.4 K/uL (1.8-7.7); NEUTROPHILS % (AUTO) 42.5 % (40.0-70.0); PLATELET COUNT (AUTO) 499 K/uL (130-430); RED BLOOD CELL COUNT(AUTO) 3.79 MIL/uL (4.2-6.2); RED CELL DISTRIBUTION WIDTH 16.6 % (9.0-15.0); WHITE BLOOD COUNT (AUTO) 7.9 K/uL (4.8-10.8)
[2021-06-11 07:59] VITALS: BP_SYST 106
[2021-06-11] MEDS: POTASSIUM CHLORIDE 20 MEQ/PKT PACKET GT SCH ×2 (08:30→21:52)
[2021-06-11] MEDS: ASCORBIC ACID 500 MG TABLET PO SCH (08:30)
[2021-06-11] MEDS: metFORMIN HCL 500 MG TABLET GT SCH ×2 (08:30→21:52)
[2021-06-11 08:31] LABS: ALBUMIN 2.6 g/dL (3.4-4.8); CALCIUM 9.3 mg/dL (8.4-11.0); CREATININE 0.49 mg/dL (0.55-1.30); POTASSIUM 3.6 mmol/L (3.5-5.1); TOTAL BILIRUBIN 0.2 mg/dL (0.0-1.0)
[2021-06-11] MEDS: LACTOBACILLUS RHAMNOSUS GG 1 CAP CAPSULE PO SCH ×2 (08:31→21:51)
[2021-06-11] MEDS: CARVEDILOL 6.25 MG TABLET (COREG) PO SCH ×2 (08:31→21:52)
[2021-06-11] MEDS: COLCHICINE 0.6 MG TABLET PO SCH ×2 (08:31→21:51)
[2021-06-11] MEDS: CHOLECALCIFEROL (VITAMIN D3) 2,000 UNIT TABLET PO SCH (08:31)
[2021-06-11] MEDS: BALSAM PERU/CASTOR OIL 60 GM OINT...G. TP SCH (08:32)
[2021-06-11] MEDS: ENOXAPARIN SODIUM 100 MG/ML SYRINGE SUBCUT SCH ×2 (08:33→21:54)
[2021-06-11 08:42] LABS: PROTHROMBIN TIME 10.8 SECS (9.5-12.5)
[2021-06-11 15:53] VITALS: BP_SYST 121
[2021-06-11 20:00] VITALS: BP_SYST 112
[2021-06-12 00:33] VITALS: BP_SYST 116
[2021-06-12] MEDS: NORMAL SALINE 5 ML DISP.SYRIN IVF SCH ×3 (05:55→22:00)
[2021-06-12] MEDS: LANSOPRAZOLE 30 MG CAPSULE.DR GT SCH (06:00)
[2021-06-12 08:00] VITALS: BP_SYST 106
[2021-06-12] MEDS: metFORMIN HCL 500 MG TABLET GT SCH ×2 (10:01→22:06)
[2021-06-12] MEDS: ASCORBIC ACID 500 MG TABLET PO SCH (10:02)
[2021-06-12] MEDS: CHOLECALCIFEROL (VITAMIN D3) 2,000 UNIT TABLET PO SCH (10:03)
[2021-06-12] MEDS: COLCHICINE 0.6 MG TABLET PO SCH ×2 (10:03→22:06)
[2021-06-12] MEDS: POTASSIUM CHLORIDE 20 MEQ/PKT PACKET GT SCH ×2 (10:05→22:05)
[2021-06-12] MEDS: CARVEDILOL 6.25 MG TABLET (COREG) PO SCH ×2 (10:05→22:07)
[2021-06-12] MEDS: LACTOBACILLUS RHAMNOSUS GG 1 CAP CAPSULE PO SCH ×2 (10:05→22:06)
[2021-06-12] MEDS: ENOXAPARIN SODIUM 100 MG/ML SYRINGE SUBCUT SCH ×2 (10:32→22:08)
[2021-06-12 12:58] VITALS: BP_SYST 114
[2021-06-12] MEDS: BALSAM PERU/CASTOR OIL 60 GM OINT...G. TP SCH (13:10)
[2021-06-12 20:30] VITALS: BP_SYST 125
[2021-06-13 00:30] VITALS: BP_SYST 128
[2021-06-13] MEDS: NORMAL SALINE 5 ML DISP.SYRIN IVF SCH ×3 (06:00→21:38)
[2021-06-13] MEDS: LANSOPRAZOLE 30 MG CAPSULE.DR GT SCH (06:37)
[2021-06-13] MEDS: metFORMIN HCL 500 MG TABLET GT SCH ×2 (10:22→21:37)
[2021-06-13] MEDS: ASCORBIC ACID 500 MG TABLET PO SCH (10:22)
[2021-06-13] MEDS: ENOXAPARIN SODIUM 100 MG/ML SYRINGE SUBCUT SCH ×2 (10:22→21:39)
[2021-06-13] MEDS: LACTOBACILLUS RHAMNOSUS GG 1 CAP CAPSULE PO SCH ×2 (10:22→21:37)
[2021-06-13] MEDS: POTASSIUM CHLORIDE 20 MEQ/PKT PACKET GT SCH ×2 (10:23→21:36)
[2021-06-13] MEDS: CHOLECALCIFEROL (VITAMIN D3) 2,000 UNIT TABLET PO SCH (10:23)
[2021-06-13] MEDS: COLCHICINE 0.6 MG TABLET PO SCH ×2 (10:23→21:37)
[2021-06-13] MEDS: BALSAM PERU/CASTOR OIL 60 GM OINT...G. TP SCH (10:24)
[2021-06-13] MEDS: CARVEDILOL 6.25 MG TABLET (COREG) PO SCH ×2 (10:25→21:38)
[2021-06-13 12:00] VITALS: BP_SYST 101
[2021-06-13 16:00] VITALS: BP_SYST 116
[2021-06-13 20:00] VITALS: BP_SYST 125
[2021-06-14 01:49] VITALS: BP_SYST 138
[2021-06-14] MEDS: LANSOPRAZOLE 30 MG CAPSULE.DR GT SCH (06:36)
[2021-06-14 08:00] VITALS: BP_SYST 119
[2021-06-14] MEDS: CHOLECALCIFEROL (VITAMIN D3) 2,000 UNIT TABLET PO SCH (10:33)
[2021-06-14] MEDS: LACTOBACILLUS RHAMNOSUS GG 1 CAP CAPSULE PO SCH ×2 (10:34→21:41)
[2021-06-14] MEDS: COLCHICINE 0.6 MG TABLET PO SCH ×2 (10:34→21:53)
[2021-06-14] MEDS: CARVEDILOL 6.25 MG TABLET (COREG) PO SCH ×2 (10:34→21:48)
[2021-06-14] MEDS: LOPERAMIDE HCL 2 MG CAPSULE PO PRN ×2 (10:34→21:52)
[2021-06-14] MEDS: POTASSIUM CHLORIDE 20 MEQ/PKT PACKET GT SCH ×2 (10:35→21:41)
[2021-06-14] MEDS: metFORMIN HCL 500 MG TABLET GT SCH ×2 (10:35→21:49)
[2021-06-14] MEDS: ASCORBIC ACID 500 MG TABLET PO SCH (10:35)
[2021-06-14] MEDS: ENOXAPARIN SODIUM 100 MG/ML SYRINGE SUBCUT SCH (10:35)
[2021-06-14] MEDS: BALSAM PERU/CASTOR OIL 60 GM OINT...G. TP SCH (10:36)
[2021-06-14 12:00] VITALS: BP_SYST 130
[2021-06-14 16:00] VITALS: BP_SYST 128
[2021-06-14 20:00] VITALS: BP_SYST 127
[2021-06-14] MEDS: APIXABAN 2.5 MG TABLET PO SCH (21:49)
[2021-06-15] VITALS: BP_SYST 124
[2021-06-15] MEDS: LANSOPRAZOLE 30 MG CAPSULE.DR GT SCH (06:19)
[2021-06-15 08:00] VITALS: BP_SYST 111
[2021-06-15] MEDS: APIXABAN 2.5 MG TABLET PO SCH (09:00)
[2021-06-15] MEDS: ASCORBIC ACID 500 MG TABLET PO SCH (09:00)
[2021-06-15] MEDS ORDERED: CARV6.2554 PO (09:29)
[2021-06-15] MEDS ORDERED: VIT1TABL67 PO (09:29)
[2021-06-15] MEDS ORDERED: ASCO500T20 PO (09:30)
[2021-06-15] MEDS ORDERED: APIX5TAB4 PO (09:31)
[2021-06-15] MEDS ORDERED: ZINC220T4 (09:36)
[2021-06-15] MEDS ORDERED: ZINC220T3 PO (09:36)
[2021-06-15] MEDS ORDERED: MYCOLOG15O TP (09:37)
[2021-06-15] MEDS ORDERED: METF-518 PO (09:37)
[2021-06-15] MEDS ORDERED: SACC250C3 PO (09:38)
[2021-06-15] MEDS ORDERED: FAMO40TA71 PO (09:38)
[2021-06-15] MEDS ORDERED: COLC0.6T67 PO (09:38)
[2021-06-15 09:50] VITALS: BP_SYST 111
[2021-06-15] MEDS ORDERED: MENTHOL/ZINC OXIDE 113 GM OINT. TP PRN (10:00)
[2021-06-15] MEDS: metFORMIN HCL 500 MG TABLET GT SCH (10:21)
[2021-06-15] MEDS: LOPERAMIDE HCL 2 MG CAPSULE PO PRN (10:21)
[2021-06-15] MEDS: POTASSIUM CHLORIDE 20 MEQ/PKT PACKET GT SCH (10:21)
[2021-06-15] MEDS: COLCHICINE 0.6 MG TABLET PO SCH (10:21)
[2021-06-15] MEDS: LACTOBACILLUS RHAMNOSUS GG 1 CAP CAPSULE PO SCH (10:21)
[2021-06-15] MEDS: CHOLECALCIFEROL (VITAMIN D3) 2,000 UNIT TABLET PO SCH (10:21)
[2021-06-15] MEDS: CARVEDILOL 6.25 MG TABLET (COREG) PO SCH (10:22)
[2021-06-15] MEDS: BALSAM PERU/CASTOR OIL 60 GM OINT...G. TP SCH (10:27)
[2021-06-15 11:56] VITALS: BP_SYST 110
== END 2021-06-15 11:45 | disposition home or self-care (01) | DRG 5 ==
LOC: SED 18:18 → SIC 22:01 → STU 05-10 22:51 → SMU 06-12 18:18
PROVIDERS: ADMIT Preventive Medicine Preventive Medicine/Occupational Environmental Medicine; ATTEND Family Medicine
PROC: XW13325 Transfusion of Convalescent Plasma (Nonautologous) into Peripheral Vein, Percutaneous Approach, New Technology Group 5 (ICD-10-PCS; 2021-04-07)
PROC: 5A0935A Assistance with Respiratory Ventilation, Less than 24 Consecutive Hours, High Flow/Velocity Cannula (ICD-10-PCS; 2021-04-07)
PROC: XW033E5 Introduction of Remdesivir Anti-infective into Peripheral Vein, Percutaneous Approach, New Technology Group 5 (ICD-10-PCS; 2021-04-07)
PROC: 5A09357 Assistance with Respiratory Ventilation, Less than 24 Consecutive Hours, Continuous Positive Airway Pressure (ICD-10-PCS; 2021-04-08)
PROC: XW033H5 Introduction of Tocilizumab into Peripheral Vein, Percutaneous Approach, New Technology Group 5 (ICD-10-PCS; 2021-04-08)
PROC: 02HV33Z Insertion of Infusion Device into Superior Vena Cava, Percutaneous Approach (ICD-10-PCS; 2021-04-08)
PROC: B548ZZA Ultrasonography of Superior Vena Cava, Guidance (ICD-10-PCS; 2021-04-08)
PROC: 5A1955Z Respiratory Ventilation, Greater than 96 Consecutive Hours (ICD-10-PCS; principal; 2021-04-09)
PROC: 0BH17EZ Insertion of Endotracheal Airway into Trachea, Via Natural or Artificial Opening (ICD-10-PCS; 2021-04-09)
PROC: 5A09357 Assistance with Respiratory Ventilation, Less than 24 Consecutive Hours, Continuous Positive Airway Pressure (ICD-10-PCS; 2021-04-09)
PROC: 0DH63UZ Insertion of Feeding Device into Stomach, Percutaneous Approach (ICD-10-PCS; 2021-05-03)
PROC: 0B110F4 Bypass Trachea to Cutaneous with Tracheostomy Device, Open Approach (ICD-10-PCS; 2021-05-03 13:15)
PROC: 05HY33Z Insertion of Infusion Device into Upper Vein, Percutaneous Approach (ICD-10-PCS; 2021-05-07)
PROC: 05HY33Z Insertion of Infusion Device into Upper Vein, Percutaneous Approach (ICD-10-PCS; 2021-05-23)
DX: A41.89 Other specified sepsis (principal); J12.82 Pneumonia due to coronavirus disease 2019; I63.9 Cerebral infarction, unspecified; G72.81 Critical illness myopathy; J95.851 Ventilator associated pneumonia; E43 Unspecified severe protein-calorie malnutrition; R65.21 Severe sepsis with septic shock; U07.1 COVID-19; G82.50 Quadriplegia, unspecified; G93.1 Anoxic brain damage, not elsewhere classified; J80 Acute respiratory distress syndrome; D64.9 Anemia, unspecified; E11.65 Type 2 diabetes mellitus with hyperglycemia; E66.2 Morbid (severe) obesity with alveolar hypoventilation; E83.41 Hypermagnesemia; E83.51 Hypocalcemia; E87.0 Hyperosmolality and hypernatremia; E87.6 Hypokalemia; R74.01 Elevation of levels of liver transaminase levels; I21.A1 Myocardial infarction type 2; D47.3 Essential (hemorrhagic) thrombocythemia; R53.81 Other malaise; I49.1 Atrial premature depolarization; I49.3 Ventricular premature depolarization; N39.0 Urinary tract infection, site not specified; E86.0 Dehydration; I63.89 Other cerebral infarction; G81.94 Hemiplegia, unspecified affecting left nondominant side; I11.9 Hypertensive heart disease without heart failure; E88.81 Metabolic syndrome and other insulin resistance; I82.412 Acute embolism and thrombosis of left femoral vein; K80.10 Calculus of gallbladder with chronic cholecystitis without obstruction; N17.9 Acute kidney failure, unspecified; Z99.11 Dependence on respirator [ventilator] status; Z79.01 Long term (current) use of anticoagulants; Z68.41 Body mass index [BMI] 40.0-44.9, adult
CPT/HCPCS: 36415; 36600; 70450-TC; 71045; 71275; 74240-TC; 76376; 76604; 76700-TC; 78226; 80048; 80053; 80074; 80076; 80198; 80202; 81000; 82150; 82390; 82728; 82803-TC; 82962; 83036; 83516; 83605; 83690; 83735; 83880; 84100; 84439; 84443; 84480; 84484; 84702; 85007; 85025; 85027; 85379; 85610-TC; 85651-TC; 85730-TC; 86038; 86140; 86710; 86900; 86901; 87040-TC; 87070-TC; 87081; 87086; 87205-TC; 87230-TC; 87305; 92610-GN; 93005; 93306; 93970; 94003; 94640; 94660; 94664; 94760; 95816; 96374; 97110-GO; 97110-GP; 97112-GO; 97112-GP; 97116-GP; 97163-GP; 97530-GO; 97530-GP; 97535-GO; 99285; A9537; C9113; G0378; J0171; J0330; J0456; J0461; J0690; J0692; J0696; J1100; J1200; J1265; J1450; J1650; J1815; J1940; J1956; J2060; J2248; J2250; J2270; J2405; J2543; J2704; J3262; J3370; J3465; J3480; J3490; J7050; J7060; J7612; P9017; Q9963; Q9967

== ENCOUNTER 2022-08-10 00:11 | Emergency (ER) | payer BC, MEDICAID ==
[~2022-08-10] VITALS: Ht 160 cm; Wt 104.3 kg
[~2022-08-10 00:11] MED LIST changes: +APIX5TAB4 PO; +ASCO500T20 PO; +CARV6.2554 PO; -CEFAZOLIN 1 GM IVPB PREMIX 50 ML IV ONE; +COLC0.6T67 PO; +FAMO40TA71 PO; +METF-518 PO; -MIDAZOLAM HCL 5 MG/5 ML VIAL IVP ONE; -MORPHINE 2 MG/ML INJ. SYRINGE IVP ONE; +MYCOLOG15O TP; -PROPOFOL 200MG/ 20ML VIAL (DIPRIVAN) IV ONE; -ROCURONIUM BROMIDE 10 MG/ML (ZEMURON) IV ONE; +SACC250C3 PO; -SEVOFLURANE 15 MIN GAS INH ONE; +VIT1TABL67 PO; +ZINC220T3 PO; +ZINC220T4
[2022-08-10 00:35] VITALS: BP_SYST 110
[2022-08-10 01:25] LABS: BASOPHILS % (AUTO) 0.3 % (0.0-2.0); EOSINOPHILS # (AUTO) 0.2 K/uL (0.0-0.4); EOSINOPHILS % (AUTO) 2.1 % (0.0-4.0); HEMATOCRIT 35.5 % (36-48); HEMOGLOBIN 12.1 g/dL (12.0-16.0); LYMPHOCYTES # (AUTO) 1.7 K/uL (1.0-5.5); LYMPHOCYTES % (AUTO) 16.9 % (20.5-51.5); MEAN CORPUSCULAR HEMOGLOBIN 30 pg (27-31); MEAN CORPUSCULAR HGB CONC 34 % (32-36); MEAN CORPUSCULAR VOLUME 89 fL (79.0-98.0); MONOCYTES # (AUTO) 0.8 K/uL (0.0-1.0); MONOCYTES % (AUTO) 8.1 % (1.7-9.3); NEUTROPHILS # (AUTO) 7.4 K/uL (1.8-7.7); NEUTROPHILS % (AUTO) 72.6 % (40.0-70.0); PLATELET COUNT (AUTO) 316 K/uL (130-430); RED CELL DISTRIBUTION WIDTH 14.7 % (9.0-15.0); WHITE BLOOD COUNT (AUTO) 10.2 K/uL (4.8-10.8)
[2022-08-10 01:43] LABS: CALCIUM 9.2 mg/dL (8.4-11.0); CREATININE 0.75 mg/dL (0.55-1.30)
[2022-08-10 02:09] LABS: ALBUMIN 3.3 g/dL (3.4-4.8); TOTAL BILIRUBIN 0.2 mg/dL (0.0-1.0)
[2022-08-10 02:26] LABS: BILIRUBIN,URINE NEGATIVE (NEGATIVE); BLOOD, URINE 3+ (NEGATIVE); GLUCOSE,URINE NEGATIVE (NEGATIVE); KETONES,URINE NEGATIVE (NEGATIVE); LEUKOCYTE ESTERASE ,URINE 2+ (NEGATIVE); NITRITE, URINE NEGATIVE (NEGATIVE); PH,URINE 6.5 (5.0-8.0); PROTEIN URINE NEGATIVE (NEGATIVE); UROBILINOGEN,URINE 0.2 (0.2-1.0)
[2022-08-10 02:32] LABS: CLARITY/URINE HAZY (CLEAR); COLOR,URINE BROWN (YELLOW)
[2022-08-10 03:03] LABS: BACTERIA,URINE FEW /HPF (None Seen); MUCUS,URINE 1+ /LPF (None Seen)
[2022-08-10] MEDS ORDERED: ACET-2634 PO (03:09)
[2022-08-10] MEDS ORDERED: CEPH-548 PO (03:09)
[2022-08-10 03:57] VITALS: BP_SYST 136
== END 2022-08-10 03:57 | disposition home or self-care (01) ==
LOC: SED 00:11
DX: O20.0 Threatened abortion (principal); O20.9 Hemorrhage in early pregnancy, unspecified; O23.41 Unspecified infection of urinary tract in pregnancy, first trimester; Z3A.10 10 weeks gestation of pregnancy; Z79.899 Other long term (current) drug therapy
CPT/HCPCS: 36415; 76856-TC; 80053; 81000; 84702; 85025; 86900; 86901; 99284